=== PATIENT | female | born 1995 | race Hispanic/Latino ===

== ENCOUNTER 2021-11-16 22:53 | Emergency (ER) | payer BC ==
--- OUTSIDE RECORDS SUMMARY | 2021-11-16 22:57 | XMS REPORT | Continuity of Care Document ---
:1995 Author Organization [facility] t Address [address] [place] [address] Care Team Providers Name Role Phone Pcp, Does Not Have A Primary Care Physician Nj Barnes Attending Clinician Unavailable Michael Henson Attending Clinician Unavailable Ash ROOFER APPRENTICE Attending Clinician Nj Barnes Admitting Clinician Unavailable Payers Payer Name Policy Type Policy Number Effective Date Expiration Date S ource Problems Condition Condition Condition Status Onset Resolution Last Treating Co mments Source Name Details Category Date Date Treatment Clinician Date No known No known Disease Unive rs active active ity of problems problems [facility] Allergies, Adverse Reactions, Alerts Allergy Allergy Status Severity Reaction(s) Onset Inactive Treating Comm ents Source Name Type Date Date Clinician No Known DA Active U 2020-04 [facility] 16 [facility] [place] No Known DA Active U [facility] 11-27 [place] [facility] 00:[facility]: [facility] 00 [facility] [place] No Known DA Active U [facility]ie 11-27 [place] 00:[facility] 00 [facility] Social History Social Habit Start Date Stop Date Quantity Comments Source Exposure to 2021-11-06 2021-11-16 Not sure [facility]-CoV-2 00:00:00 16:40:00 [place] [facility]event[facility] Tobacco use and 2021-10-08 2021-10-08 Smokeless tobacco Un iversity of exposure 00:00:00 00:00:00 non-user [facility] Sex Assigned At [birth year] Univers[facility] 00:00:00 00:00:00 [facility] Smoking Status Start Date Stop Date Source Never smoked tobacco [facility] Medications Ordered Filled Start Stop Current Ordering Indication Dosage Frequency Signature Comments Components Source Medication Medication Date Date Medication? Clinician (SIG) Name Name triamcinolo 2021- No [id number] 40mg Univers ne 11-16 ity of acetonide 23:15: 22:15 [place] (KENALOG) 00 :00 Medical injection Branch 40 mg triamcinolo 2021- No [id number] 40mg 40 mg, Univers ne 11-16 Intramuscu ity of acetonide 23:15: 22:15 [place], ONCE, [place] (KE[place]LOG) 00 :00 1 dose, On Medi kai injection Sun Branch 40 mg 11/16/21 at 1815, Routine methylPREDN Yes [id number] Take by Univers ISolone -24 mouth ity of (MEDROL, 00:00: SEE-INSTRU Ashok as MARIO,) 4 mg 00 CTIONS. Medica l tablets follow Branch package directions hydrOXYzine Yes [id number] 25mg Take 1 Univers 25 mg 7-24 tablet by ity of tablet 00:00: mouth [place] 00 every 6 Medical (six) Branch hours as needed for Itching. guaiFENesin Yes [id number] 400mg Take 1 Univers 400 mg 6-15 tablet by ity of tablet 00:00: mouth [place] 00 every 4 Medical (four) Branch hours as needed for Cough. benzonatate Yes [id number] 200mg Take 2 Univers 100 mg 6-15 capsules ity of capsule 00:00: by mouth [place] 00 every 8 Medical (eight) Branch hours as needed for Cough. fluticasone Yes [id number] 1{spray Use 1 Univers propionate 6-15 } [place] in ity o f 50 00:00: each [place] mcg/actuati 00 nostril Medic al on nasal daily. Branch spray sulfamethox Yes 1{tbl} Take 1 Un karan azole-trime 6-09 tablet by ity of thoprim 00:00: mouth 2 [place] 800-160 mg 00 (two) Medical per tablet times Branch daily. metoprolol Yes 25mg Take 25 mg U nivers succinate 6-02 by mouth 2 ity of XL 25 mg 24 00:00: (two) [place] hr tablet 00 times Medical daily. Branch hydroCHLORO Yes 12.5mg Take 12.5 Univers thiazide 5-18 mg by ity of 12.5 mg 00:00: mouth [place] tablet 00 every Medical morning. Branch Vital Signs Vital Name Observation Time Observation Value Comments Source BMI 2021-11-16 21:41:00 45.98 kg/m2 [facility] Oxygen saturation in 2021-11-16 21:41:00 99 /min [facility] Arterial blood by [facility] Pulse oximetry Branch Systolic blood 2021-11-16 21:41:00 127 mm[Hg] Univer sity of pressure [facility] Diastolic blood 2021-11-16 21:41:00 79 mm[Hg] [facility] Heart rate 2021-11-16 21:41:00 79 /min [facility] Body temperature 2021-11-16 21:41:00 37.11 Chyna [facility] Respiratory rate 2021-11-16 21:41:00 18 /min [facility] Body height 2021-11-16 21:41:00 147.3 cm [facility] Body weight 2021-11-16 21:41:00 99.791 kg [facility] Procedures Procedure Date / Time Performed Performing Clinician Carlos Eduardo doe [id number] 2021-03-19 00:00:00 DRYDA [facility] Plan of Care Planned Activity Planned Date Details Comments Source Encounters Start End Encounter Admission Attending Care Care Encounter Source Date/Time Date/Time Type Type Clinicians Facility Department ID 2021-07-08 Outpatient STLMLC STLMLC [id number] [facility] 15:32:03 [id number] [facility] 2021-04-04 Inpatient BRITNEY Amato [id number] [facility] 16:23:00 [facility] [id number] [facility] [place] 2021-03-14 [id number] 18:00:00 [facility] 37 [facility] [place] 2019-12-01 Inpatient DONALD Mauro DAYS [id number] [facility] 07:30:00 [facility] 2021-11-16 2021-11-16 [place], [facility] [id number] Univers 16:40:00 17:00:00 [facility] [id number] it y of [place] [id number] Ashok as SOHAIL?BLEA [id number] Wa supriya [address] MEDICAL OFFICE BUILDING 2021-03-26 2021-03-28 [facility] [id number] [facility] 20:03:00 18:35:00 [facility] [id number] [facility] [place] 2021-03-26 2021-03-28 [facility] [id number] [facility] 20:03:00 18:35:00 [facility] 15 [facility] [place] 2021-03-18 2021-03-22 Inpatient EM BRITNEY Barnes OB [id number] [facility] 06:52:00 14:43:00 [facility] [id number] [facility] [place] 2021-03-18 2021-03-22 Inpatient EM BRITNEY Barnes OBPP [id number] [facility] 06:52:00 14:43:00 [facility] 15 [facility] [place] 2021-03-11 2021-03-11 Emergency EM DONALD Barnes JESUS [id number] [facility] 09:37:00 11:37:00 [facility] [id number] [facility] [place] Results Test Description Test Time Test Comments Results Result Comments Source CYTOLOGY NON PRIVATE SECRETARY 2021-03-28 14:55:00 Test Item Value Reference Range Interpretation Comme nts CYTOLOGY RUN DATE: NON PRIVATE SECRETARY 03/28/21 [facility] PAGE 1 RUN TIME: 1455 (test Specimen Inquiry RUN USER: INTERFACE code = CR) PATIENT: SANDRA SILVER [facility] [place] #[place] [id number] AGE/SX: 25/ F ROOM[facility] RE03/26/21REG DR: Laura Barnes MD : [birth year] BED: A DIS: STATUS: ADM Tasha TLOC: SPEC #: [id number] RECD: STATUS: JENNIFER REStef #: [id number] CLAUDIA: 03/27/21- SUBM DR: Laura Barnes MD ENTERED: 03/27/21 SP TYPE: CYTO PEDRO PABLO RAMIREZ DR: DOES _NOT KNOW ORDERED: ANATOMIC SPEC, SPEC TRACK, [id number], 46364 COPIES TO: DOES_NOT KNOW Laura Barnes MD [address] [address] PROCEDURES: 00337 (03/27/21) 89815 (03/28/21-7955) TISSUES: A. PELVIC FLUID WASHING (CYTOSPIN,CELL BLOCK) - PELVIC ABSCESS FLUID FINAL DIAGNOSIS PELVI C ABSCESS:-Marked acute inflammation, consistent with the provided history of an abscess. -No malignant epithelial cells identified. GROSS DESCRIPTION Site A received in a tubular container labeled wi th the patient's name and date of birthdesignated "pelvic abscess fluid" is 5 mL of red-vela viscous flui d. The specimen will besent to [employer] for cytospin and cell block. LC Technical component performe d at [email or web address],[place] [address] , [place] [address] Unless gross only, the diagnosis is based upon micr oscopic examination.Immunohistochemistry: This test was developed and its performance characteristicsd etermined by this laboratory. It has not been approved nor does it need approval by [place] FDA. Appro priate positive and negative controls are reviewed and judged to beacceptable. This laborator y is certified under the Clinical Laboratory ImprovementAmendments (CLIA-88) as qualified to perform high complexity clinical labor atory testing. CONTINUED ON NEXT PAGE RUN DATE: 03/28/21 [facility] PAGE 2 RUN TIME: 1455 Specimen Inquiry RUN USER: INTERFACE SPEC #: [id number] PATIENT: SANDRA SILVER #[id number] (Continued) CLINICAL INFORMATION PELVIC ABSCESS C SECTION Signed Monisha Frias 03/28/21 1455 END OF REPORT CBC W/MANUAL [id number] 10:44:00 Test Item Value Reference Range Interpretation Comments WHITE BLOOD CELL (test code = WBC) 8.8 K/mm3 6.5-12.3 N RED BLOOD CELL (test code = RBC) 4.24 M/mm3 3.51-4.69 N HEMOGLOBIN (test code = HGB) 11.0 g/dL 10.1-13.8 N HEMATOCRIT (test code = HCT) 33.7 % 32.5-41.8 N MEAN CELL VOLUME (test code = MCV) 79.5 fL 84.6-96.6 L MEAN CELL HGB (test code = MCH) 25.9 pg 27.3-33.9 L MEAN CELL HGB CONCETRATION (test 32.6 gm/dL 32.0-34.2 N code = MCHC) RED CELL DISTRIBUTION WIDTH (test 14.3 % 12.2-16.3 N code = RDW) PLATELET COUNT (test code = PLT) 326 K/mm3 134-363 N MEAN PLATELET VOLUME (test code = 10.0 fL 9.2-12.7 N MPV) SEGMENTED NEUTROPHILS (test code = 73 % 56.5-79.4 N SEG) LYMPHOCYTE (test code = LYMPH) 20 % 20-40 N TOTAL CELLS COUNTED (test code = 100 #CELLS TCC) MONOCYTE (test code = MON) 4 % 0-8 N EOSINOPHIL (test code = EOS) 3 % 0-4 N MICROCYTOSIS (test code = MICR) 1+ PLATELET ESTIMATE (test code = ADEQUATE ADEQ PLTEST) PLATELET MORPHOLOGY (test code = NORMAL NORMAL PLTMORPH) - CT PERC [id number] 00:00:00 [facility]OS : 1995 Sex: F Patient Name: SANDRA SILVER Unit No: [id number] EXAMS: CPT CODE: [id number] CT PERC DRAIN 77721 Radiation Dose CTDIVOL = 43.3 (mGy): DLP = 2485.87 (mGy-cm) PROCEDURE INFORMATION: Exam: IR DRAIN PERITONEAL ABCESS OPEN CT-GUIDED PERCUTANEOUS ABSCESS DRAINAGE CATHETER PLACEMENT X2 Exam date and time: 03/27/2021 10:40 AM Age: 25 years old Clinical indication: Symptoms: Rectus sheath abscess; Prior surgery TECHNIQUE: Imaging protocol: IR DRAIN PERITONEAL ABCESS OPEN Radiation optimization: All CT scans at this facility use at least one of these dose optimization techniques: automated exposure control; mA and/or kV adjustment per patient size (includes targeted exams where dose is matched to clinical indication); or iterative reconstruction. COMPARISON: CT abdomen pelvis 03/26/2021 RADIATION DOSE METRICS: CTDI volume (mGy): 43.3 Total DLP (mGy-cm): 2485.87 FINDINGS: Advanced practice providers: Dr. Marley CONSENT AND SEDATION INFO: Consent: The procedure, risks, benefits and alternatives of the procedure were discussed. Informed consent was obtained. Time out: Timeout was performed prior to the procedure. Procedure summary: Preliminary axial noncontrast CT images again demonstratethe large complex fluid collection containing multiple air bubbles within the lower rectus sheath and the 3 x 4.5 cm midline subcutaneous fluid collection in the lower abdominal wall deep to the transverse incision. Under sterile conditions, utilizing CT guidance and 1% lidocaine local anesthesia, an 18 gauge Chiba needle was introduced into the rectus sheath collection. Grossly infected foul-smelling [facility] NAME: SANDRA SILVER Radiology Department PHYS: Mireya Monk [address] : 1995 AGE: 25 SEX: F [place], [place] [address] LOC: F.2600 A PHONE #: [phone] EXAM DATE: 03/27/2021 STATUS: ADM INFAX #: [phone] RAD NO: Page 1 Signed Report 1 Patient Name: SANDRA SILVER Unit No: [id number] EXAMS: CPT CODE: [id number] CT PERC DRAIN 11367 <Continued> hemorrhagic material was aspirated.A superstiff guidewire was introduced. The tract was dilated to 12 Paraguayan. A 12 [place]aguayan self-retaining pigtail drainage catheter was introduced. The pigtail loop was reformed within the collection. 40 cc of infected material was aspirated. The catheter was attached to a Elmo- Royal drain. Next, under sterile conditions, utilizing CT guidance and 1% lidocaine local anesthesia, an18 gauge Chiba needle was introduced into the lower subcutaneous fluid collection. Similar infected material was aspirated. A superstiff guidewire was introduced. The tract was dilated to 8 [place]aguayan. A self-retaining 8 [place]aguayan pigtail drainage catheter was introduced and the pigtail loop was reformed within the collection. The catheter was attached to a Elmo-Royal drain. Sterile dressings were applied. Procedural imaging: See above Complications: No immediate complications. IMPRESSION: Placement of 2 abdominal wall drainage catheters without complication. at 1300 Reported and signed by: Dell Marley MD CC: Laura Arias; Mireya Magana MD Technologist: Loren Alcantar, RT, CT CTDI: 43.30 DLP: 2485.87 Trnscrbd D/ (1300) GCD.[facility] NAME: SANDRA SILVER Radiology Department PHYS: Omar Monkine Veronica [address] : 1995 AGE: 25 SEX: F [place] [address] LOC: F.2600 A PHONE #: [phone] EXAM DATE: 03/27/2021 STATUS: ADM IN FAX #: [phone] RAD NO: Page 2 Signed Report 1 Patient Name: SANDRA SILVER Unit No: [id number] EXAMS: CPT CODE: [id number] CT PERC DRAIN 33101 <Continued> Orig Print D/T: S: 03/27/2021 (1301) [facility] NAME: SANDRA SILVER Radiology Department PHYS: Mireya Monk [address] : 1995 AGE: 25 SEX: F [place] [address] LOC: F.2600 A PHONE #: [phone] EXAM DATE: 03/27/2021 STATUS: ADM IN FAX #: [phone] RAD NO: Page 3 Signed Report 1THROMBOPLASTIN TIME PARTIAL 2021-03-26 21:02:00 Test Item Value Reference Range Interpretation Comments THROMBOPLASTIN TIME PARTIAL (test 32.5 secs 22-38 N code = PTT) PROTHROMBIN [id number] 21:02:00 Test Item Value Reference Range Interpretation Comments PROTHROMBIN TIME PATIENT (test code 11.8 secs 10.1-12.3 N = PTP) UA RFLX MICR CULT IF [id number] 19:00:00 Test Item Value Reference Range Interpretation Comments UA COLOR (test code = COLU) YELLOW YELLOW UA APPEARANCE (test code = CLEAR CLEAR APPU) UA GLUCOSE DIPSTICK (test code NEGATIVE NEG = DGLUU) UA BILIRUBIN DIPSTICK (test NEGATIVE NEG code = BILU) UA KETONE DIPSTICK (test code NEGATIVE NEG = KETU) UA SPECIFIC GRAVITY (test code 1.032 1.001-1.035 N = SGU) UA BLOOD DIPSTICK (test code = 2+ NEG A KEARA) UA PH DIPSTICK (test code = 6.0 5-9 CHARLES) UA PROTEIN DIPSTICK (test code NEGATIVE NEG = PROU) UA UROBILINIOGEN DIPSTICK NEGATIVE mg/dL NEG (test code = URO) UA NITRITE DIPSTICK (test code NEG NEG = RICH) UA LEUKOCYTE ESTERASE DIPSTICK NEG NEG (test code = LEUU) UA WBC (test code = WBCU) 3-5 #/hpf NONE SEEN A UA RBC (test code = RBCU) 11-15 #/hpf NONE SEEN A UA EPITHELIAL CELLS (test code RARE #/HPF RARE-FEW = EPIU) UA MUCUS (test code = MUCU) RARE NONE SEEN Indication for culture: Temperature > 100.4 FSpecimen Description: CLEAN CATCHSpecimen Comment: CLEAN CATCHCOVID 19 Asymptomatic IH [id number] 16:50:00 Test Item Value Reference Range Interpretation Comments COVID 19 NEGATIVE NEGATIVE This test has b een Asymptomatic IH AG authorize d only for the (test code = detection ofpro teins from COVNONPUIAG) SARS-CoV-2, not for any other viruses orpathogens. N egative results should be treated as presumptive andconfirmed wi th a molecular assay , if necessary for patientmanageme nt. Negative result s do not rule out COVID- 19 andshould not b e used as the sole basis for treatment orpat ient management deci sions, including infec tion controldecision s. Negative result s should be considered i n thecontext of a patient's recent exposure s, history and thepresence of clinical signs and symptoms consis tent withCOVID-19. T his test has not been FD A cleared or approved; th e test hasbeen authori zed by FDA under an Emerge ncy Use Authorization(E UA) for use by jeffrey philippe certified under the CLIA thatmeet the re quirements to perform mode rate, high or waivedcomple xity tests. This robbie t is authorized for use at thePoint of Car e (POC), i.e., in patien t care settingsoperati ng under a CLIA Certificat e of Waiver, Certifi mandy ofCompliance, o r Certificate of Accreditation. This test is only authori zed for the duration of thedeclaration that circumstances e xist justifying theauthorizatio n of emergency use o f in vitro diagnostic test sfor detection and/o r diagnosis of CO VID-19 under Eezlzst49 4(b)(1) of the Act, 21 U.S .C. 360bbb-3(b)(1), unless theauthorizatio n is terminated or r evoked sooner. CBC W/AUTO [id number] 16:13:00 Test Item Value Reference Range Interpretation Comments WHITE BLOOD CELL (test code = WBC) 11.8 K/mm3 6.5-12.3 N RED BLOOD CELL (test code = RBC) 4.79 M/mm3 3.51-4.69 H HEMOGLOBIN (test code = HGB) 12.4 g/dL 10.1-13.8 N HEMATOCRIT (test code = HCT) 38.2 % 32.5-41.8 N MEAN CELL VOLUME (test code = MCV) 79.7 fL 84.6-96.6 L MEAN CELL HGB (test code = MCH) 25.9 pg 27.3-33.9 L MEAN CELL HGB CONCETRATION (test 32.5 gm/dL 32.0-34.2 N code = MCHC) RED CELL DISTRIBUTION WIDTH (test 14.1 % 12.2-16.3 N code = RDW) PLATELET COUNT (test code = PLT) 383 K/mm3 134-363 H MEAN PLATELET VOLUME (test code = 10.0 fL 9.2-12.7 N MPV) NEUTROPHIL % (test code = NT%) 79.9 % 57.9-77.3 H LYMPHOCYTE % (test code = LY%) 12.4 % 14.5-29.7 L MONOCYTE % (test code = MO%) 5.3 % 3.6-10.2 N EOSINOPHIL % (test code = EO%) 1.4 % 0.0-3.0 N BASOPHIL % (test code = BA%) 0.3 % 0.1-0.9 N NEUTROPHIL # (test code = NT#) 9.4 K/mm3 LYMPHOCYTE # (test code = LY#) 1.5 K/mm3 MONOCYTE # (test code = MO#) 0.6 K/mm3 EOSINOPHIL # (test code = EO#) 0.16 K/mm3 BASOPHIL # (test code = BA#) 0.0 K/mm3 RBC MORPHOLOGY REQUIRED (test code NORMAL NORMAL = RBCM) PLATELET MORPHOLOGY REQUIRED (test NORMAL NORMAL code = PLTMR) COMPREHENSIVE METABOLIC [id number] 16:09:00 Test Item Value Reference Range Interpretation Comments SODIUM (test code = NA) 138 mEq/L 135-145 N POTASSIUM (test code = K) 3.7 mEq/L 3.5-5.0 N CHLORIDE (test code = CL) 101 mEq/L 100-115 N CARBON DIOXIDE (test code = CO2) 26 mEq/L 22-31 N ANION GAP (test code = GAP) 15.20 10-20 N GLUCOSE (test code = GLU) 128 mg/dL 65-110 H BLOOD UREA NITROGEN (test code = 13 mg/dL 7-18 N BUN) GLOMERULAR FILTRATION RATE (test 86 ml/min >60 N code = GFR) CREATININE (test code = CREAT) 0.8 mg/dL 0.5-1.0 N TOTAL PROTEIN (test code = PROT) 7.5 gm/dL 6.3-8.2 N ALBUMIN (test code = ALB) 2.7 gm/dL 3.4-4.8 L CALCIUM (test code = CA) 9.2 mg/dL 8.4-10.2 N BILIRUBIN TOTAL (test code = 0.3 mg/dL 0.2-1.0 N BILT) SGOT/AST (test code = AST) 30 units/L 15-37 N SGPT/ALT (test code = ALT) 38 units/L 12-78 N ALKALINE PHOSPHATASE TOTAL (test 118 units/L 46-116 H code = ALKP) LIVER [id number] 16:09:00 Test Item Value Reference Range Interpretation Comments BILIRUBIN DIRECT (test code = BILD) 0.1 mg/dL <0.2 N [id number] 16:09:00 Test Item Value Reference Range Interpretation Comments LIPASE (test code = LIP) 125 units/L 73-393 N LACTIC [id number] 16:09:00 Test Item Value Reference Range Interpretation Comments LACTIC ACID (test code = LACT) 1.2 MMOL/L 0.5-2.2 N - CT ABD PELVIS [id number] 00:00:00 [facility] 1995 Sex: F Patient Name: SANDRA SILVER Unit No: [id number] EXAMS: CPT CODE: [id number] CT ABD PELVIS W/CONT 48217 Radiation Dose CTDIVOL = 20.68 (mGy): DLP = 1151.99 (mGy-cm) PROCEDURE INFORMATION: Exam: CT Abdomen And Pelvis With Contrast Exam date and time: :06 PM Age: 25 years old Clinical indication: Abdominal pain; Tenderness; Lower; Prior surgery; Surgery date: 3-7 days post-operative; Surgery type: C section 03/19/2021; Additional info: Post , fever of unkown origin TECHNIQUE: Imaging protocol: Computed tomography of the abdomen and pelvis with contrast. Radiation optimization: All CT scans at this facility use at least one of these dose optimization techniques: automated exposure control; mA and/orkV adjustment per patient size (includes targeted exams where dose is matched to clinical indication); or iterative reconstruction. Contrast material: ISOVUE 300; Contrast volume: 100 ml; Contrast route: INTRAVENOUS (IV) ADDITIONAL STUDY INFORMATION: CTDI volume (mGy): 20.68 Total DLP (mGy-cm): 1151.99 COMPARISON: CR XR CHEST 1V 03/26/2021 3:42 PM FINDINGS: ABDOMINAL ORGANS: No acute CT abnormalities of the liver, spleen, pancreas, adrenal glands or kidneys are detected. There is no CT evidence of acute renal collecting system obstruction or calcified renal collecting system stone. BILIARY: The gallbladder is normally distended. No significant biliary ductal dilatation is detected. GASTROINTESTINAL: Bowel assessment is limited by the absenceof bowel contrast. No gross abnormalities of the stomach or duodenum are identified. No small bowel dilatation is present to suggest [facility] NAME: SANDRA SILVER Radiology Department PHYS: Indira Foster MD [address] : 1995 AGE: 25 SEX: F [place], [place] [address] LOC: [place] PHONE #: [phone] EXAM DATE: 03/26/2021 STATUS: REG ER FAX #: [phone] RAD NO: Page 1 Signed Report 1 Patient Name: SANDRA SILVER Unit No:[id number] EXAMS: CPT CODE: [id number] CTABD PELVIS W/CONT 12475 <Continued> acute obstruction.The appendix is identified and is not acutely inflammed. The colon demonstrates no evidence of diverticular disease or acute inflammatory wall thickening. PERITONEUM: No evidence of free intraperitoneal air. No significant free intraperitoneal fluid. RETROPERITONEUM: The abdominal aortademonstrates no evidence of aneurysm or dissection. There is no evidence of retroperitoneal mass or adenopathy. PELVIS: The uterus is enlarged, compatible with the patient's recently status. No there is no evidence of postoperative pelvic hematoma or abscess. No abnormalities of the ovaries/adnexa are noted. The bladder has an unremarkable appearance. LOWER CHEST: The lung bases appear clear of acute disease. ADDITIONAL FINDINGS: A 9 x 7 x 3 cm gas containing fluid collection is identified within the rectus sheath beginning at the level of the incision and extending cranially. A 2.6 x 2.0 x 4.5 cm fluid collection is identified in the midline subcutaneous fat at the level of the incision. IMPRESSION: 1. Status post with 2 postoperative fluid collections in the anterior abdominal wall. A 9 x 7 x 3 cm gascontaining fluid collection is identified within the rectus sheath and a 2.6 x 2.0 x 4.5 cm fluid collection is identified in the subcutaneous fat. 2. No additional acute CT abnormalities of the abdomen or pelvis are detected. SL:131 at 1804 Reported and signed by: Miguel Desai MD [facility] NAME: SILVER,SANDRA THAOadiology Department PHYS: Indira Foster MD [address] : 1995 AGE: 25 SEX: F [place] [address] LOC: .ERS PHONE #: [phone] EXAM DATE: 03/26/2021 STATUS: REG ER FAX #: [phone] RAD NO: Page 2 Signed Report 1 Patient Name: SANDRA SILVER Unit No: [id number]: CPT CODE: [id number] CT ABD PELVIS W/CONT 08315 <Continued> CC: Laura Arias; Indira Doty MD Technologist: Mireya Sol, RT CTDI: DLP: Trnscrbd D/ (180) GCD.[facility] NAME: SILVERSANDRA Radiology Department PHYS: Indira Foster MD [address] : 1995 AGE: 25 SEX: F [place] [address] LOC: .ERS PHONE #: [phone] EXAM DATE: 03/26/2021 STATUS: REG ER FAX #: [phone] RAD NO: Page 3 Signed Report 1 Patient Name: SANDRA SILVER Unit No: [id number] EXAMS: CPT CODE: [id number] CT ABD PELVIS W/CONT 09238 <Continued> Orig Print D/T: S: 03/26/2021 (1805) [facility] NAME: [facility] Radiology Department PHYS: Indira Foster MD [address] : 1995 AGE: 25 SEX: F [place], [place] [address] LOC: [facility] PHONE #: [phone] EXAM DATE: 03/26/2021 STATUS:REG ER FAX #: [phone] RAD NO: Page 4 Signed Report 1- XR CHEST 1 [id number] 00:00:00 [facility] 1995 Sex: F Patient Name: SANDRA SILVER Unit No: [id number] EXAMS: CPT CODE: [id number] XR CHEST 1 V 33682 PROCEDURE INFORMATION: Exam: XR Chest Exam date and time: 03/26/2021 3:42 PM Age: 25 years old Clinical indication: Patient HX: fever; Additional info: Code sepsis TECHNIQUE: Imaging protocol: XR of the chest. Views: 1 view. COMPARISON: No relevant prior studies available. FINDINGS: Lungs: No focal consolidation. Pleural spaces: No pleural effusion or pneumothorax. Heart/Mediastinum: No cardiomegaly. Midline trachea. Bones/joints: No acute abnormalities. IMPRESSION: Clear lungs. at 1600 Reported and signed by: Samuel Dejesus MD CC: Laura Arias; Indira Doty MD Technologist: Belinda Horn, RT; Lynette Garvin RT Trnscrbd D/ (1600) GCD.CPS Orig Print D/T: S: 03/26/2021 (1601) [facility] NAME: SANDRA SILVER Radiology Department PHYS: Indira Foster MD [address] : 1995 AGE: 25 SEX: F [place], [place] [address] LOC: [place] PHONE #: [phone] EXAM DATE: 03/26/2021 STATUS: REG ER FAX #: [phone] RAD NO: Page 1 Signed ReportSURGICAL 2021-03-25 12:37:00 Test Item Value Reference Range Interpretation Comments SURGICAL (test code = SR) R UN DATE: 03/25/21 [facility] PAGE 1 RUN TIME: 1237 Specimen Inquiry RUN USER: INTERFACE Carolina ATIENT: SANDRA SILVER LOC: [facility]vinUW U #: [id number] AGE/SX: 25/F ROOM: 2200 RE03/18/21REG DR: Laura Barnes MD : [birth year] BED: A DIS: 03/22/21 STATUS: DIS IN TLOC: SPEC #: [id number] RECD: 03/21/21 STATUS: JENNIFER WILLIAMSON #: [id number] CLAUDIA: 03/18/21- SUBM DR: Laura Barnes MD ENTERED: 03/21/21 SP TYPE: SURGICAL OTHR DR: ORDERED: ANATOMIC SPEC, SPEC TRACK, [id number] PROCEDURES: [id number] (03/21/21) TISSUES: A. PLACENTA, THIRD TRIMESTER (28 + WEEKS) - 37.5 WEEKS, CHTN E PRE.E FEATURES FINAL DIAGNOSIS A. PLACENTA, DELIVERY: - placenta, 474 grams, appropriate for gestational age at 37 5/7 weeks. - Accelerated villous maturation with increased syncytial knots. - Meconium staining, microscopic. - Umbilical cord with three vessels. GROSS DESCRIPTION Received in formalin is a lua placenta with the placental disc measuring 16 x 14.5 x3 cm and weighing 474 gm with a 1.3 cm in diameter by 25 cm in length eccentric at edge, 3vessel cord with appropriate spiraling. The membranes are vela and translucent withmarginal insertion with the site of rupture 2 cm from the placental disc. The placentaldisc has a beefy red cut surface with no gross lesion. Manager Document Control sections aresubmitted as follows: A1: Membrane roll and cordA2: Full thickness placental discA3: Full thickness placental disc at edge LC Technical component performed at [email or web address],[id number], [place] [address] MICROSCOPIC DESCRIPTION Technical component performed at [email or web address],[id number], [place] [address] Unless gross only, the diagnosis is based upon microscopic examination.Immunohistochemistr y: This test was developed and its performance characteristicsdetermined by this laboratory. It has not been approved nor does it need approval by [place] FDA. Appropriate positive and negative controls are reviewed and judged to beacceptable. This laboratory is certified under the Clinical Laboratory ImprovementAmendments (CLIA-88) as qualified to perform high complexity clinical laboratory testing. CONTINUED ON NEXT PAGE R UN DATE: 03/25/21 [facility] PAGE 2 RUN TIME: 1237 Specimen Inquiry RUN USER: INTERFACE S PEC #: [id number] PATIENT: SANDRA SILVER #[id number] (Continued) CLINICAL INFORMATION ON MAG -- Signed SIGNATURE ON TYLER FariasAmado 03/25/21 1237 END OF REPORT COMPREHENSIVE METABOLIC [id number] 08:14:00 Test Item Value Reference Range Interpretation Comments SODIUM (test code = NA) 141 mEq/L 135-145 N POTASSIUM (test code = K) 4.3 mEq/L 3.5-5.0 N CHLORIDE (test code = CL) 106 mEq/L 100-115 N CARBON DIOXIDE (test code = CO2) 24 mEq/L 22-31 N ANION GAP (test code = GAP) 14.90 10-20 N GLUCOSE (test code = GLU) 74 mg/dL 65-110 N BLOOD UREA NITROGEN (test code = 7 mg/dL 7-18 N BUN) GLOMERULAR FILTRATION RATE (test 120 ml/min >60 N code = GFR) CREATININE (test code = CREAT) 0.6 mg/dL 0.5-1.0 N TOTAL PROTEIN (test code = PROT) 5.3 gm/dL 6.3-8.2 L ALBUMIN (test code = ALB) 2.2 gm/dL 3.4-4.8 L CALCIUM (test code = CA) 6.7 mg/dL 8.4-10.2 L BILIRUBIN TOTAL (test code = 0.2 mg/dL 0.2-1.0 N BILT) SGOT/AST (test code = AST) 25 units/L 15-37 SGPT/ALT (test code = ALT) 18 units/L 12-78 N ALKALINE PHOSPHATASE TOTAL (test 113 units/L 46-116 N code = ALKP) CBC W/AUTO [id number] 07:41:00 Test Item Value Reference Range Interpretation Comments WHITE BLOOD CELL (test code = WBC) 12.9 K/mm3 6.5-12.3 H RED BLOOD CELL (test code = RBC) 4.37 M/mm3 3.51-4.69 N HEMOGLOBIN (test code = HGB) 11.3 g/dL 10.1-13.8 N HEMATOCRIT (test code = HCT) 34.6 % 32.5-41.8 N MEAN CELL VOLUME (test code = MCV) 79.2 fL 84.6-96.6 L MEAN CELL HGB (test code = MCH) 25.9 pg 27.3-33.9 L MEAN CELL HGB CONCETRATION (test 32.7 gm/dL 32.0-34.2 N code = MCHC) RED CELL DISTRIBUTION WIDTH (test 15.0 % 12.2-16.3 N code = RDW) PLATELET COUNT (test code = PLT) 201 K/mm3 134-363 N MEAN PLATELET VOLUME (test code = 11.7 fL 9.2-12.7 N MPV) NEUTROPHIL % (test code = NT%) 73.5 % 57.9-77.3 N LYMPHOCYTE % (test code = LY%) 15.9 % 14.5-29.7 N MONOCYTE % (test code = MO%) 9.7 % 3.6-10.2 N EOSINOPHIL % (test code = EO%) 0.2 % 0.0-3.0 N BASOPHIL % (test code = BA%) 0.2 % 0.1-0.9 N NEUTROPHIL # (test code = NT#) 9.5 K/mm3 LYMPHOCYTE # (test code = LY#) 2.1 K/mm3 MONOCYTE # (test code = MO#) 1.3 K/mm3 EOSINOPHIL # (test code = EO#) 0.02 K/mm3 BASOPHIL # (test code = BA#) 0.0 K/mm3 RBC MORPHOLOGY REQUIRED (test code NORMAL NORMAL = RBCM) PLATELET MORPHOLOGY REQUIRED (test NORMAL NORMAL code = PLTMR) CAPILLARY BLOOD [id number] 12:19:00 Test Item Value Reference Range Interpretation Comments CAPILLARY BLOOD GAS PH (test code 7.172 7.35-7.45 LL = PHC) CAPILLARY BLOOD GAS PCO2 (test 60.2 mmHg code = PCO2C) CAPILLARY BLOOD GAS PO2 (test code 12.3 mmHg = PO2C) CBG HCO3 (test code = HCO3C) 21.6 meq/L CBG BASE EXCESS (test code = BEC) -7.8 CAPILLARY BLOOD GAS TYPE (test CBLV code = TYPEC) CAPILLARY BLOOD GAS FIO2 (test 21.0 % code = FIO2C) CAPILLARY BLOOD [id number] 12:18:00 Test Item Value Reference Range Interpretation Comments CAPILLARY BLOOD GAS PH (test code 7.078 7.35-7.45 LL = PHC) CAPILLARY BLOOD GAS PCO2 (test 79.2 mmHg code = PCO2C) CAPILLARY BLOOD GAS PO2 (test code 14.5 mmHg = PO2C) CBG HCO3 (test code = HCO3C) 22.8 meq/L CBG BASE EXCESS (test code = BEC) -9.0 CAPILLARY BLOOD GAS TYPE (test CBLA code = TYPEC) CAPILLARY BLOOD GAS FIO2 (test 21.0 % code = FIO2C) [id number] 02:35:00 Test Item Value Reference Range Interpretation Comments MAGNESIUM (test code = 5.4 mg/dL 1.8-2.4 HH RESUL TS CALLED TO [facility]) DELIA ArroyoREAD BACK & CONFIRME D? YES.BY [id number] 03/19/21 0234.R esults verified by rep eat analysis AG HEPATITIS B [id number] 02:42:00 Test Item Value Reference Range Interpretation Comments AG HEPATITIS B SURFACE (test code NONREACTIVE NONREACTIVE = HBSAG) AB HEPATITIS C [id number] 02:42:00 Test Item Value Reference Range Interpretation Comments AB HEPATITIS C (test code = NONREACTIVE NONREACTIVE HCVAB) SIGNAL TO CUTOFF (test code = <0.02 <0.80 N CUTOFF) AB [id number] 02:42:00 Test Item Value Reference Range Interpretation Comments AB TREPONEMA (test code = TREPAB) NONREACTIVE NONREACTIVE AB HIV 1 02:42:00 Test Item Value Reference Range Interpretation Comments AB HIV 1 2 (test NONREACTIVE NONREACTIVE Done by Veronica Jorgensen code = [id number]) 4th Gen HIV Ag/Ab Combo Screen CBC W/AUTO [id number] 01:33:00 Test Item Value Reference Range Interpretation Comments WHITE BLOOD CELL (test code = WBC) 10.5 K/mm3 6.5-12.3 N RED BLOOD CELL (test code = RBC) 4.99 M/mm3 3.51-4.69 H HEMOGLOBIN (test code = HGB) 13.1 g/dL 10.1-13.8 N HEMATOCRIT (test code = HCT) 39.2 % 32.5-41.8 N MEAN CELL VOLUME (test code = MCV) 78.6 fL 84.6-96.6 L MEAN CELL HGB (test code = MCH) 26.3 pg 27.3-33.9 L MEAN CELL HGB CONCETRATION (test 33.4 gm/dL 32.0-34.2 N code = MCHC) RED CELL DISTRIBUTION WIDTH (test 15.6 % 12.2-16.3 N code = RDW) PLATELET COUNT (test code = PLT) 244 K/mm3 134-363 N MEAN PLATELET VOLUME (test code = 12.1 fL 9.2-12.7 N MPV) NEUTROPHIL % (test code = NT%) 61.3 % 57.9-77.3 N LYMPHOCYTE % (test code = LY%) 28.9 % 14.5-29.7 N MONOCYTE % (test code = MO%) 8.0 % 3.6-10.2 N EOSINOPHIL % (test code = EO%) 1.0 % 0.0-3.0 N BASOPHIL % (test code = BA%) 0.3 % 0.1-0.9 N NEUTROPHIL # (test code = NT#) 6.4 K/mm3 LYMPHOCYTE # (test code = LY#) 3.0 K/mm3 MONOCYTE # (test code = MO#) 0.8 K/mm3 EOSINOPHIL # (test code = EO#) 0.11 K/mm3 BASOPHIL # (test code = BA#) 0.0 K/mm3 RBC MORPHOLOGY REQUIRED (test code NORMAL NORMAL = RBCM) PLATELET MORPHOLOGY REQUIRED (test NORMAL NORMAL code = PLTMR) COVID 19 Asymptomatic IH [id number] 01:16:00 Test Item Value Reference Range Interpretation Comments COVID 19 NEGATIVE NEGATIVE This test has b een Asymptomatic IH AG authorize d only for the (test code = detection ofpro teins from COVNONPUIAG) SARS-CoV-2, not for any other viruses orpathogens. N egative results should be treated as presumptive andconfirmed wi th a molecular assay , if necessary for patientmanageme nt. Negative result s do not rule out COVID- 19 andshould not b e used as the sole basis for treatment orpat ient management deci sions, including infec tion controldecision s. Negative result s should be considered i n thecontext of a patient's recent exposure s, history and thepresence of clinical signs and symptoms consis tent withCOVID-19. T his test has not been FD A cleared or approved; th e test hasbeen authori zed by FDA under an Emerge ncy Use Authorization(E UA) for use by jeffrey denae certified under the CLIA thatmeet the re quirements to perform mode rate, high or waivedcomple xity tests. This robbie t is authorized for use at thePoint of Car e (POC), i.e., in patien t care settingsoperati ng under a CLIA Certificat e of Waiver, Certifi mandy ofCompliance, o r Certificate of Accreditation. This test is only authori zed for the duration of thedeclaration that circumstances e xist justifying theauthorizatio n of emergency use o f in vitro diagnostic test sfor detection and/o r diagnosis of CO VID-19 under Uqpokmi63 4(b)(1) of the Act, 21 U.S .C. 360bbb-3(b)(1), unless theauthorizatio n is terminated or r evoked sooner. [facility] [id number] 00:58:00 Test Item Value Reference Range Interpretation Comments CREATININE (test code = 0.5 mg/dL 0.5-1.0 N CREAT) SGOT/AST (test code = 64 units/L 15-37 H SPECIM EN HEMOLYZED AST) SGPT/ALT (test code = 21 units/L 12-78 N SPECIM EN HEMOLYZED ALT) LACTIC 554 units/L 81-234 H SPECIMEN HEMOLY ZED DEHYDROGENASE(LDH) (test code = LDH) : *UR PROTEIN/CREATININE [id number] 00:39:00 Test Item Value Reference Range Interpretation Comments UR PROTEIN RANDOM (test code = 8.9 mg/dL PROTU) UR CREATININE RANDOM (test 12.1 mg/dL code = CREATU) PROTEIN/CREATININE RATIO (test 735.5 mg/gcrea <200 H code = P/CRATIO) COMPREHENSIVE METABOLIC [id number] 10:27:00 Test Item Value Reference Range Interpretation Comments SODIUM (test code = NA) 138 mEq/L 135-145 N POTASSIUM (test code = K) 4.1 mEq/L 3.5-5.0 N CHLORIDE (test code = CL) 105 mEq/L 100-115 N CARBON DIOXIDE (test code = CO2) 23 mEq/L 22-31 N ANION GAP (test code = GAP) 13.90 10-20 N GLUCOSE (test code = GLU) 75 mg/dL 65-110 N BLOOD UREA NITROGEN (test code = 8 mg/dL 7-18 N BUN) GLOMERULAR FILTRATION RATE (test 120 ml/min >60 N code = GFR) CREATININE (test code = CREAT) 0.6 mg/dL 0.5-1.0 N TOTAL PROTEIN (test code = PROT) 6.4 gm/dL 6.3-8.2 N ALBUMIN (test code = ALB) 2.8 gm/dL 3.4-4.8 L CALCIUM (test code = CA) 8.5 mg/dL 8.4-10.2 N BILIRUBIN TOTAL (test code = 0.3 mg/dL 0.2-1.0 N BILT) SGOT/AST (test code = AST) 16 units/L 15-37 N SGPT/ALT (test code = ALT) 19 units/L 12-78 N ALKALINE PHOSPHATASE TOTAL (test 141 units/L 46-116 H code = ALKP) UR PROTEIN/CREATININE [id number] 10:22:00 Test Item Value Reference Range Interpretation Comments UR PROTEIN RANDOM (test code = 21.3 mg/dL PROTU) UR CREATININE RANDOM (test 85.2 mg/dL code = CREATU) PROTEIN/CREATININE RATIO (test 250.0 mg/gcrea <200 H code = P/CRATIO) CBC W/AUTO [id number] 10:05:00 Test Item Value Reference Range Interpretation Comments WHITE BLOOD CELL (test code = WBC) 9.3 K/mm3 6.5-12.3 N RED BLOOD CELL (test code = RBC) 5.01 M/mm3 3.51-4.69 H HEMOGLOBIN (test code = HGB) 13.1 g/dL 10.1-13.8 N HEMATOCRIT (test code = HCT) 39.4 % 32.5-41.8 N MEAN CELL VOLUME (test code = MCV) 78.6 fL 84.6-96.6 L MEAN CELL HGB (test code = MCH) 26.1 pg 27.3-33.9 L MEAN CELL HGB CONCETRATION (test 33.2 gm/dL 32.0-34.2 N code = MCHC) RED CELL DISTRIBUTION WIDTH (test 14.9 % 12.2-16.3 N code = RDW) PLATELET COUNT (test code = PLT) 245 K/mm3 134-363 N MEAN PLATELET VOLUME (test code = 11.2 fL 9.2-12.7 N MPV) NEUTROPHIL % (test code = NT%) 73.5 % 57.9-77.3 N LYMPHOCYTE % (test code = LY%) 19.0 % 14.5-29.7 N MONOCYTE % (test code = MO%) 6.2 % 3.6-10.2 N EOSINOPHIL % (test code = EO%) 0.6 % 0.0-3.0 N BASOPHIL % (test code = BA%) 0.3 % 0.1-0.9 N NEUTROPHIL # (test code = NT#) 6.8 K/mm3 LYMPHOCYTE # (test code = LY#) 1.8 K/mm3 MONOCYTE # (test code = MO#) 0.6 K/mm3 EOSINOPHIL # (test code = EO#) 0.06 K/mm3 BASOPHIL # (test code = BA#) 0.0 K/mm3 RBC MORPHOLOGY REQUIRED (test code NORMAL NORMAL = RBCM) PLATELET MORPHOLOGY REQUIRED (test NORMAL NORMAL code = PLTMR) COVID 19 Asymptomatic IH [id number] 16:21:00 Test Item Value Reference Range Interpretation Comments COVID 19 Asymptomatic Test not NEGATIVE SEE LA BCORP IH AG (test code = performed RESULT.DU PLICATE COVNONPUIAG) REQUEST.Previou s ly reported result: NEGATIV E Edited by: CHERRI on 20:1621 Novel Coronavirus 16:19:00 Test Item Value Reference Range Interpretation Comments Novel Coronavirus Not Detected NEGATIVE Positive r esults are 2019 Inhouse indicative of t he (test code = presence ofSARS -CoV-2 [id number]) RNA, clinical c orrelation with patient hi storyand other diagnosti c information is necessary to determinepat ient infection statu s. Positive result s do not rule outbacteri al infection or co -infection with other viru ses. Negative result s do not preclude SARS-C oV-2 infection andsh ould not be used as the sole basis for patient managementdecis ions. Negative result s must be combined with otherclinical observations, p atient history, and epidemiological informatio n. Detection o f SARS-CoV-2 RNA may be affected bysamp le collection meth ods, storage conditi ons, and/or stageof infection. Viral RNA mut ations, vaccinations, antiviraltherap eutics, antibiotics, chemotherapeuti c orimmunosuppres radha drugs have not been e valuated for effectson d etection. Results are for the identification of SARS-CoV-2 RNA usingthe [employer] M2000 Sy stem under the FDA Emergen cy UseAuthorizatio n. The testing is perf ormed by brenda d in the procedures for the He M2000 molecular diagnostic SARS-CoV-2 assa y in vitro. COVID 19 Asymptomatic IH [id number] 06:43:00 Test Item Value Reference Range Interpretation Comments COVID 19 Asymptomatic IH AG (test NEGATIVE NEGATIVE code = COVNONPUIAG) UR HCG [id number] 17:15:00 Test Item Value Reference Range Interpretation Comments UR HCG QUAL (test code = HCGQLU) NEGATIVE NEGATIVE
[2021-11-16 23:44] LABS: Urine Blood 1+ (Negative); Urine Glucose Negative (Negative); Urine Protein Negative (Negative); Urine Specific Gravity >=1.030 (1.005-1.030); Urine pH 5.5 (5.0-7.0)
[2021-11-16] MEDS ORDERED: ONDANSETRON 4 MG/2 ML VIAL ONE (23:44)
[2021-11-16 23:55] LABS: Absolute Lymphocytes (CBC) 1.9 K/uL (0.7-4.9); Lymphocytes % 19.5 % (15.3-44.8); MCV 75.1 fL (80-100); MPV 8.3 fL (7.6-11.3); RBC Red Blood Cell Count 5.73 M/uL (3.86-4.86)
[2021-11-17 00:08] LABS: Albumin 3.8 g/dL (3.4-5.0); Bilirubin Total 0.3 mg/dL (0.2-1.0); Potassium 3.7 mmol/L (3.5-5.1); Protein, Total 7.6 g/dL (6.4-8.2)
--- NOTE | 2021-11-17 01:33 | ER ---
Nurse's Notes [facility] Name: Jennifer Tyler Age: 26 yrs Sex: Female : 1995 Arrival Date: 11/16/2021 Time: 22:56 Bed 6 Private MD: Diagnosis: Upper abdominal pain, unspecified Presentation: 11/16 23:07 Chief complaint: Patient states: "I am having really bad pain in my stomach it gets vc1 worse when I eat, it's not constant. My mom thought maybe I had heart burn. I got a steroid shot today at [facility] urgent care because I broke out in a rash.". Coronavirus screen: Vaccine status: Patient reports receiving the 2nd dose of the covid vaccine. [employer] At this time, the client does not indicate any symptoms associated with coronavirus-19. Ebola Screen: No symptoms or risks identified at this time. Initial Sepsis Screen: Does the patient meet any 2 criteria? No. Patient's initial sepsis screen is negative. Does the patient have a suspected source of infection? No. Patient's initial sepsis screen is negative. Risk Assessment: Do you want to hurt yourself or someone else? Patient reports no desire to harm self or others. Onset of symptoms was November 16, 2021 at 15:00. 23:07 Method Of Arrival: Ambulatory vc1 23:07 Acuity: TOMÁS 4 vc1 23:53 Acuity: TOMÁS 3 kl Triage Assessment: 23:12 General: Appears in no apparent distress. uncomfortable, Behavior is calm, cooperative, vc1 appropriate for age. Pain: Complains of pain in epigastric area Pain does not radiate. Pain currently is 6 out of 10 on a pain scale. Quality of pain is described as aching, pressure. EENT: No deficits noted. Neuro: Level of Consciousness is awake, alert, obeys commands, Oriented to person, place, time, situation, Appropriate for age. Cardiovascular: Capillary refill < 3 seconds Patient's skin is warm and dry. Respiratory: No deficits noted. GI: Reports epigastric pain, nausea, Eating makes it worse. : No deficits noted. Derm: No deficits noted. Musculoskeletal: No deficits noted. 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 - Social history:: Smoking status: Patient denies any tobacco usage or history of. Screenin:11 Abuse screen: Denies threats or abuse. Nutritional screening: No deficits noted. vc1 Tuberculosis screening: No symptoms or risk factors identified. Fall Risk None identified. Assessment: 23:45 General: Appears uncomfortable, well groomed, well developed, Behavior is calm, kl cooperative. GI: Bowel sounds present X 4 quads. Abdomen is tender to palpation in right upper quadrant and left upper quadrant. GI: Reports nausea. : No deficits noted. No signs and/or symptoms were reported regarding the genitourinary system. Vital Signs: 23:07 BP 155 / 102; Pulse 64; Resp 18; Temp 97.6; Pulse Ox 100% ; Weight 99.79 kg; Height 4 vc1 ft. 10 in. (147.32 cm); Pain 6/10; 11/17 00:12 BP 123 / 76; Pulse 72; Resp 16; Pulse Ox 99% on R/A; Pain 0/10; kl 01:11 BP 115 / 93; Pulse Ox 99% on R/A; kl 11/16 23:07 Body Mass Index 45.98 (99.79 kg, 147.32 cm) vc1 ED Course: 11/16 22:56 Patient arrived in ED. bp1 22:57 Smith Marquez DO is Attending Physician. ms3 23:09 Triage completed. vc1 23:10 Arm band placed on right wrist. vc1 23:17 Golden Medrano, ELIE is Primary Nurse. as6 23:43 CBC with Diff Sent. kl 23:43 CMP Sent. kl 23:43 Lipase Sent. kl 23:59 Abdomen Limited US In Process Unspecified. EDMS 11/17 00:13 No apparent distress. Resting quietly. Awaiting radiology results. kl 01:12 No apparent distress. Resting quietly. kl 01:31 Shai Thibodeaux MD is Referral Physician. ms3 01:38 Bed in low position. Call light in reach. as6 01:42 No provider procedures requiring assistance completed. IV discontinued, intact, as6 bleeding controlled, No redness/swelling at site. Pressure dressing applied. Administered Medications: 11/16 23:43 Drug: Zofran (Ondansetron) 4 mg Route: IVP; Site: right forearm; 11/17 00:13 Follow up: Response: Marked relief of symptoms Medication: 01:42 VIS not applicable for this client. as6 Outcome: 01:32 Discharge ordered by . ms3 01:42 Discharged to home ambulatory. as6 01:42 Condition: stable 01:42 Discharge instructions given to patient, Instructed on discharge instructions, follow up and referral plans. Demonstrated understanding of instructions, follow-up care. 01:43 Patient left the ED. as6 Signatures: Dispatcher [employer] EDMS Chey Ta RN RN kl Sims, Marcus, DO DO ms3 Shanelle Tyler Ashby, RN RN as6 Caryn Campbell RN RN vc1 Corrections: (The following items were deleted from the chart) 11/16 23:11 23:07 Chief complaint: Patient states: "I am having really bad pain in my stomach it vc1 gets worse when I eat, it's not constant. My mom thought maybe I had heart burn. vc1
--- NOTE | 2021-11-17 01:33 | EDPHYS ---
Physician Documentation [facility] Name: Jennifer Tyler Age: 26 yrs Sex: Female : 1995 Arrival Date: 11/16/2021 Time: 22:56 Bed 6 Private MD: ED Physician Smith Marquez HPI: 11/17 00:20 This 26 yrs old Female presents to ER via Ambulatory with complaints of ms3 Abdominal Pain, Nausea. 00:20 -year-old female with past medical history of hypertension presents for epigastric ms3 abdominal pain that began 8 hours prior to arrival. Patient states pain is 6/10 described as being sharp. Patient states the pain is worse with eating. Patient endorses nausea. Patient denies fevers, chills, vomiting. 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 - Social history:: Smoking status: Patient denies any tobacco usage or history of. ROS: 11/17 00:20 Constitutional: Negative for fever, and chills. Neck: Negative for injury, pain, and ms3 swelling, Cardiovascular: Negative for chest pain, and palpitations. Respiratory: Negative for shortness of breath, cough, wheezing, and pleuritic chest pain, MS/Extremity: Negative for injury and deformity, Skin: Negative for injury, rash, and discoloration, Psych: Negative for depression, anxiety, suicide ideation, homicidal ideation, and hallucinations. Abdomen/GI: Positive for abdominal pain, nausea. All other systems are negative. Exam: 00:20 Constitutional: This is a well developed, well nourished patient who is awake, alert, ms3 and in no acute distress. Head/Face: Normocephalic, atraumatic. Neck: Trachea midline, no cervical lymphadenopathy. Supple, full range of motion without nuchal rigidity, or vertebral point tenderness. No Meningismus. Chest/axilla: Normal chest wall appearance and motion. Nontender with no deformity. Cardiovascular: Regular rate and rhythm with a normal S1 and S2. No gallops, murmurs, or rubs. Normal PMI, no JVD. No pulse deficits. Respiratory: Lungs have equal breath sounds bilaterally, clear to auscultation and percussion. No rales, rhonchi or wheezes noted. No increased work of breathing, no retractions or nasal flaring. 00:20 Back: No spinal tenderness. No costovertebral tenderness. Full range of motion. Skin: Warm, dry with normal turgor. Normal color with no rashes, no lesions, and no evidence of cellulitis. MS/ Extremity: Pulses equal, no cyanosis. Neurovascular intact. Full, normal range of motion. Psych: Awake, alert, with orientation to person, place and time. Behavior, mood, and affect are within normal limits. 00:20 Abdomen/GI: Inspection: abdomen appears normal, Bowel sounds: normal, Palpation: mild abdominal tenderness, in the epigastric area. Vital Signs: 11/16 23:07 BP 155 / 102; Pulse 64; Resp 18; Temp 97.6; Pulse Ox 100% ; Weight 99.79 kg; Height 4 vc1 ft. 10 in. (147.32 cm); Pain 6/10; 11/17 00:12 BP 123 / 76; Pulse 72; Resp 16; Pulse Ox 99% on R/A; Pain 0/10; kl 01:11 BP 115 / 93; Pulse Ox 99% on R/A; kl 11/16 23:07 Body Mass Index 45.98 (99.79 kg, 147.32 cm) vc1 MDM: 11/16 23:38 Patient medically screened. ms3 11/17 00:20 Differential diagnosis: Nonspecific abd pain, gastritis, cholecystitis. ms3 01:33 Data reviewed: vital signs, nurses notes, lab test result(s), radiologic studies, and ms3 as a result, I will discharge patient. Data interpreted: Pulse oximetry: on room air is 99 %. Interpretation: normal. Counseling: I had a detailed discussion with the patient and/or guardian regarding: the historical points, exam findings, and any diagnostic results supporting the discharge/admit diagnosis, lab results, radiology results, the need for outpatient follow up, to return to the emergency department if symptoms worsen or persist or if there are any questions or concerns that arise at home. ED course: On reevaluation patient is improved, alert and oriented x4, in no apparent distress, nontoxic-appearing, speaking full sentences, ambulatory in emergency department. . 11/16 23:26 Order name: CBC with Diff; Complete Time: 00:09 ms3 11/16 23:26 Order name: CMP; Complete Time: 00:09 ms3 11/16 23:26 Order name: Lipase; Complete Time: 00:09 ms3 11/16 23:26 Order name: Abdomen Limited US ms3 11/16 23:44 Order name: Urine Dipstick-Ancillary; Complete Time: 00:09 EDMS 11/16 23:26 Order name: IV Saline Lock; Complete Time: 23:43 ms3 11/16 23:26 Order name: Labs collected and sent; Complete Time: 23:43 ms3 Administered Medications: 11/16 23:43 Drug: Zofran (Ondansetron) 4 mg Route: IVP; Site: right forearm; 11/17 00:13 Follow up: Response: Marked relief of symptoms kl Disposition Summary: 11/17/21 01:32 Discharge Ordered Location: Home ms3 Condition: Stable ms3 Diagnosis - Upper abdominal pain, unspecified ms3 Followup: ms3 - With: Shai Thibodeaux MD - When: 2 - 3 days - Reason: Re-evaluation by your physician Discharge Instructions: - Discharge Summary Sheet ms3 - Abdominal Pain, Adult ms3 - Cholelithiasis ms3 Forms: - Medication Reconciliation Form ms3 - Thank You Letter ms3 - Antibiotic Education ms3 - Prescription Opioid Use ms3 Signatures: Dispatcher [employer] Chey Aguilar RN Smith Rodrigez DO DO ms3 Caryn Campbell RN RN vc1
[2021-11-17 02:23] VITALS: TEMP 97.6
[2021-11-17 02:26] VITALS: O2SAT 99
[2021-11-17 02:28] VITALS: BP 115/93
--- NOTE | 2021-11-17 14:31 | RAD REPORT ---
EXAM DESCRIPTION: US - Abdomen Exam Limited - 11/17/2021 12:59 am CLINICAL HISTORY: 26 years Female ABD PAIN COMPARISON: No prior exams provided for comparison. TECHNIQUE: Real-time and donovan scale sonographic imaging of the right upper quadrant was performed. FINDINGS: The gallbladder contains multiple small gallstones. There is no gallbladder wall thickenin g, pericholecystic fluid, or sonographic Jimenez's sign. The common bile duct is within normal limits, measuring 4 mm in diameter. There is no intrahepatic biliary ductal dilatation. Visualized portions of the liver appear normal. IMPRESSION: Cholelithiasis without cholecystitis or biliary dilatation. Electronically signed by: Hilary Tran MD 11/17/2021 12:41 AM CDT Due to temporary technical issues with the PACS/Fluency reporting system, reports are being signed by the in house radiologists without review as a courtesy to insure prompt reporting. The interpreting radiologist is fully responsible for the content of the report.
== END 2021-11-17 01:43 | disposition home or self-care (01) ==
LOC: ER 22:53
DX: R10.13 Epigastric pain (principal); I10 Essential (primary) hypertension
CPT/HCPCS: 85025; 36415; 81003; 83690; 80053; 76705; 96374; 99283; J2405

== ENCOUNTER 2022-02-05 13:58 | Emergency (ER) | payer BC ==
--- OUTSIDE RECORDS SUMMARY | 2022-02-05 14:02 | XMS REPORT | Continuity of Care Document ---
:1995 Author Organization [facility] t Address [address] [place] [address] Care Team Providers Name Role Phone PCP, PATIENT DOES NOT HAVE A Primary Care Physician Unavaila Laura Vicente Attending Clinician Unavailable Caren Henson Attending Clinician Unavailable SOHAIL CHRISTIANSEN Attending Clinician Unavailable Ebrahimakayla CLEANERSSohail Attending Clinician Nneka Lopez Attending Clinician NNEKA HINOJOSA Attending Clinician Unavailable Anaid Gaston RN Attending Clinician Unavailable Rita Richardson MD Attending Clinician Shanelle Jones Attending Clinician RITA RICHARDSON Attending Clinician Unavailable Doctor Unassigned, [place] Attending Clinician Unavailable Lab, Adc Fam Pob I Attending Clinician Unavailable Libby Walton Attending Clinician Sadie Love Attending Clinician SADIE APONTE Attending Clinician Unavailable Laura Barnes Admitting Clinician Unavailable Payers Payer Name Policy Type Policy Number Effective Date Expiration Date S jennifer [facility] [id number] 2019 00:00:00 Problems Condition Condition Condition Status Onset Resolution Last Treating Co mments Source Name Details Category Date Date Treatment Clinician Date No known No known Disease Unive rs active active ity of problems problems [facility] Allergies, Adverse Reactions, Alerts Allergy Allergy Status Severity Reaction(s) Onset Inactive Treating Comm ents Source Name Type Date Date Clinician No Known DA Active U 2020-04 [facility] 116 [facility] 00 [facility] No Known DA Active U [facility] Allergie 11-27 [place] [facility] 00:[facility]: [facility] 00 [facility] Medical [place] No Known DA Active U [facility] Allergie 11-27 [place] 00:00: [facility] 00 [facility] NO KNOWN Drug Active Univers ALLERGIE Class ity of S [facility] Social History Social Habit Start Date Stop Date Quantity Comments Source Exposure to 2021-11-30 2021-12-10 Not sure [facility]-CoV-2 00:00:00 16:20:00 [facility] (event) [place] Tobacco use and 2021-10-08 2021-10-08 Smokeless tobacco Un iversity of exposure 00:00:00 00:00:00 non-user [facility] Sex Assigned At [birth year] Universit y of 00:00:00 00:00:00 [facility] Smoking Status Start Date Stop Date Source Never smoked tobacco [facility] Medications Ordered Filled Start Stop Current Ordering Indication Dosage Frequency Signature Comments Components Source Medication Medication Date Date Medication? Clinician (SIG) Name Name methocarbam 2021- Yes [id number] 750mg Take 1 Univers oL 12-10 tablet by ity of (ROBAXIN-75 00:00: 04:59 mouth 4 [place] 0[place] 750 mg 00 :00 (four) Medical tablet times Branch daily for 10 days. triamcinolo 2021- No [id number] 40mg Univers ne 11-16 ity of acetonide 23:15: 22:15 [place] (KENALOG) 00 :00 Medical injection Branch 40 mg triamcinolo 2021- No [id number] 40mg 40 mg, Univers ne 11-16 Intramuscu ity of acetonide 23:15: 22:15 [place], ONCE, [place] (KENALOG) 00 :00 1 dose, On Medi kai injection Sun Branch 40 mg 11/16/21 at 1815, Routine methylPREDN 2022-0 Yes [id number] Take by Univers ISolone 7-24 mouth ity of (MEDROL, 00:00: SEE-INSTRU Ashok as MARIO,) 4 mg 00 CTIONS. Medica l tablets follow Branch package directions hydrOXYzine 2022-0 Yes [id number] 25mg Take 1 Univers 25 mg 7-24 tablet by ity of tablet 00:00: mouth [place] 00 every 6 Medical (six) Branch hours as needed for Itching. methylPREDN 2022-0 Yes [id number] Take by Univers ISolone 7-24 mouth ity of (MEDROL, 00:00: SEE-INSTRU Ashok as MARIO,) 4 mg 00 CTIONS. Medica l tablets follow Branch package directions hydrOXYzine 2-0 Yes [id number] 25mg Take 1 Univers 25 mg 7-24 tablet by ity of tablet 00:00: mouth [place] 00 every 6 Medical (six) Branch hours as needed for Itching. guaiFENesin 2-0 Yes [id number] 400mg Take 1 Univers 400 mg 6-15 tablet by ity of tablet 00:00: mouth [place] 00 every 4 Medical (four) Branch hours as needed for Cough. benzonatate 2022-0 Yes [id number] 200mg Take 2 Univers 100 mg 6-15 capsules ity of capsule 00:00: by mouth [place] 00 every 8 Medical (eight) Branch hours as needed for Cough. fluticasone 2-0 Yes [id number] 1{spray Use 1 Univers propionate 6-15 } [place] in ity o f 50 00:00: each [place] mcg/actuati 00 nostril Medic al on nasal daily. Branch spray guaiFENesin 2-0 Yes [id number] 400mg Take 1 Univers 400 mg 6-15 tablet by ity of tablet 00:00: mouth [place] 00 every 4 Medical (four) Branch hours as needed for Cough. benzonatate 2022-0 Yes [id number] 200mg Take 2 Univers 100 mg 6-15 capsules ity of capsule 00:00: by mouth [place] 00 every 8 Medical (eight) Branch hours as needed for Cough. fluticasone 2022-0 Yes [id number] 1{spray Use 1 Univers propionate 6-15 } [place] in ity o f 50 00:00: each [place] mcg/actuati 00 nostril Medic al on nasal daily. Branch spray sulfamethox 2021-0 Yes 1{tbl} Take 1 Un karan azole-trime 6-09 tablet by ity of thoprim 00:00: mouth 2 [place] 800-160 mg 00 (two) Medical per tablet times Branch daily. sulfamethox 2021-0 Yes 1{tbl} Take 1 Un karan azole-trime 6-09 tablet by ity of thoprim 00:00: mouth 2 [place] 800-160 mg 00 (two) Medical per tablet times Branch daily. metoprolol 2021-0 Yes 25mg Take 25 mg U nivers succinate 6-02 by mouth 2 ity of XL 25 mg 24 00:00: (two) [place] hr tablet 00 times Medical daily. Branch metoprolol 2021-0 Yes 25mg Take 25 mg U nivers succinate 6-02 by mouth 2 ity of XL 25 mg 24 00:00: (two) [place] hr tablet 00 times Medical daily. Branch hydroCHLORO 0 Yes 12.5mg Take 12.5 Univers thiazide 5-18 mg by ity of 12.5 mg 00:00: mouth [place] tablet 00 every Medical morning. Branch hydroCHLORO 0 Yes 12.5mg Take 12.5 Univers thiazide 5-18 mg by ity of 12.5 mg 00:00: mouth [place] tablet 00 every Medical morning. [place] Vital Signs Vital Name Observation Time Observation Value Comments Source Systolic blood 2021-12-10 21:28:00 133 mm[Hg] [facility] sity [facility] Diastolic blood 2021-12-10 21:28:00 85 mm[Hg] [facility] Body temperature 2021-12-10 21:26:00 36.67 Chyna [facility] Respiratory rate 2021-12-10 21:26:00 16 /min [facility] Body height 2021-12-10 21:26:00 147.3 cm [facility] Body weight 2021-12-10 21:26:00 101.47 kg [facility] BMI 2021-12-10 21:26:00 46.75 kg/m2 [facility] Oxygen saturation in 2021-12-10 21:26:00 99 /min University Arterial blood by [facility] Pulse oximetry Branch Heart rate 2021-12-10 21:26:00 58 /min [facility] 2021-11-16 21:41:00 45.98 kg/m2 [facility] Oxygen saturation in 2021-11-16 21:41:00 99 /min [facility] Arterial blood by [facility] Pulse oximetry Branch Systolic blood 2021-11-16 21:41:00 127 mm[Hg] Univer sity of pressure [facility] Diastolic blood 2021-11-16 21:41:00 79 mm[Hg] Unive rsity of pressure [facility] Heart rate 2021-11-16 21:41:00 79 /min [facility] Body temperature 2021-11-16 21:41:00 37.11 Chyna [facility] 2021-11-16 21:41:00 18 /min Univ [facility] Body height 2021-11-16 21:41:00 147.3 cm [facility] Body weight 2021-11-16 21:41:00 99.791 kg [facility] Procedures Procedure Date / Time Performed Performing Clinician Carlos Eduardo doe [id number] 2021-03-19 00:00:00 DRYDA [facility] Encounters Start End Encounter Admission Attending Care Care Encounter Source Date/Time Date/Time Type Type Clinicians Facility Department ID 2021-07-08 [facility] [id number] Common 15:32:03 [facility] 2021-04-04 Inpatient DONALD Amato LD [id number] [facility] 16:23:00 Laura Guevara [facility] 2019-12-01 Inpatient MITCHEL Henson [facility] DAYS [id number] [facility] 07:30:00 Caren Laguna [facility] 2021-12-10 2021-12-10 Outpatient EMERY OLIVER AZNEIL [id number] Univers 16:20:00 16:33:41 SOHAIL lobato [facility] 2021-12-10 2021-12-10 Urgent Raysa AZENIL [id number] Univers 16:20:00 16:33:41 Care Rania HEALTH [id number] it y of [place] 4.2.7.2.686 Ashok as SOHAIL?BLEA [phone] [address] MEDICAL OFFICE [facility] 2021-11-16 2021-11-16 [facility] 1.2.840.114 [id number] Univers 16:40:00 17:00:00 Care Nneka HEALTH [id number] it y of [place] 4.2.7.2.686 Ashok as SOHAIL?BLEA [id number] [address] OFFICE [facility] 2021-11-16 2021-11-16 [facility] [id number] Univers 16:40:00 16:40:00 NNEKA ity [facility] 2021-10-09 2021-10-09 Telephone RADHA Gaston [id number] Univers 00:00:00 00:00:00 Anaid RHONDA 350.1.13.10 it y of HOSPITAL 4.2.7.2.686 Ashok as [id number] [facility] 019 [place] 2021-10-08 2021-10-08 Rita Rousseau [facility] 1.2.840.114 [id number] Univers 17:00:00 17:19:07 Care Farhad, Shanelle HEALTH 350.1.13.10 ity of [place] 4.2.7.2.686 Ashok as SOHAIL?BLEA [phone] [address] MEDICAL OFFICE [facility] 2021-10-08 2021-10-08 Outpatient R CAROLE [facility] [id number] Univers 17:00:00 17:19:07 RITA lobato [facility] 2021-10-08 2021-10-08 Orders Doctor GARCIA 1.2.840.114 [id number] Univers 00:00:00 00:00:00 Only Unassigned, RHONDA 350.1.13.10 ity of [place] [facility] 4.2.7.2.686 Ashok as [phone] [facility] 009 [place] 2021-03-26 2021-03-28 Inpatient EM Molly, [facility] MEDI.01 [id number] [facility] 20:03:00 18:35:00 Damla [facility] [place] 2021-03-18 2021-03-22 Inpatient EM Molly [facility] OBPP [id number] [facility] 06:52:00 14:43:00 Damla [facility] [place] 2021-03-11 2021-03-11 Emergency EM Molly, [facility] JESUS [id number] [facility] 09:37:00 11:37:00 Damma [facility] [place] 2020-05-16 2020-05-16 Outpatient R [facility] [id number] Univers 15:40:00 15:40:00 ity [facility] 2020-05-16 2020-05-16 Laboratory Lab, [facility] Fam Pob I [facility] 1.2. 840.114 [id number] Univers 15:38:01 15:38:19 Only Libby [facility]1.13.10 [facility] 4.2.7.2.686 Ashok as Professio [phone] Id dical nal 044 [place] [address] [facility] 2020-01-10 2020-01-10 Outpatient R [facility] [id number] Univers 08:00[facility]00 [facility] 2020-01-09 2020-01-09 Laboratory Lab, [facility] Fam Pob I [facility] 1.2. 840.114 [id number] Univers 16:51:12 17:11:12 Only Nneka Hinojosa [facility].1.13.10 [facility] 4.2.7.2.686 Ashok as Professio [phone] Id dical nal 044 [place] [address] [facility] 2020-01-09 2020-01-09 Outpatient R [facility] [id number] Univers 17:00:00 17:00:00 [facility] 2019-12-14 2019-12-14 Laboratory Lab, [facility] Fam Pob I [facility] 1.2. 840.114 [id number] Univers 14:13:28 14:33:28 Only Sadie [facility] 350.1.13.10 luis alfredo lee [place] 4.2.7.2.686 Ashok as Regino [phone] Id dicjose francisco [address] Office [facility] One 2019-12-14 2019-12-14 Outpatient Anna JOLLY [facility] [id number] Univers 14:20:00 14:20:00 SADIE pavanjennie of [facility] Results Test Description Test Time Test Comments Results Result Comments Source CYTOLOGY NON CONSULTING PROPERTY MANAGER 2021-03-28 14:55:00 Test Item Value Reference Range Interpretation Comme nts CYTOLOGY RUN NON CONSULTING PROPERTY MANAGER DATE: 03/28/21 [facility] PAGE 1 RUN TIME: 1455 Specimen Inquiry RUN USER: INTERFACE (test ADRIEN code = NT: SANDRA SILVER LOC: [facility] U #: [id number] AGE/SX: 25/ ROOM: [facility]9290 RE03/26/21REG DR: Laura Barnes MD : [birth year] BED: A DIS: STATUS: ADM Tasha TLOC: SPEC #: [id number] RECD: STATUS: JENNIFER WILLIAMSON #: [id number] CLAUDIA: 03/27/21- SUBM DR: Laura Barnes MD ENTERED: 1 05/28/20 SP TYPE: CYTO NGYN OTHR DR: DOES_NOT KNOW ORDERED: ANATOMIC SPEC, SPEC TRACK, 5 0885, 76761 COPIES TO: DOES_NOT KNOW Laura Barnes MD 9344 [facility] [address] [place] [id number] PROCEDURES: [id number] (03/27/21- 1250) [id number] (03/28/21-1444) TISSUES: A. PELVIC FLUID WASHING (CYTOSPIN,CELL BLOCK) - PELVIC ABSCESS FLUID FINAL DIAGNOSIS PELVIC ABSCE SS:-Marked acute inflammation, consistent with the provided history of an abscess. -No malignant epithelial cells identified. GROSS DESCRIPTION Site A received in a tubular container labeled wi th the patient's name and date of birthdesignated "pelvic abscess fluid" is 5 mL of red-vela vi scous fluid. The specimen will besent to [facility] for cytospin and cell block. Technical com ponent performed at [facility],[place] [address], [place] [address] Unless gross only, the diagn osis is based upon microscopic examination.Immunohistochemistry: This test was developed and its p erformance characteristicsdetermined by this laboratory. It has not been approved nor does it ne ed approval by Anton FDA. Appropriate positive and negative controls are reviewed and judged to b eacceptable. This laboratory is certified under the Clinical Laboratory ImprovementAmendm ents (CLIA-88) as qualified to perform high complexity clinical laboratory testing. CONTINUED ON NEXT PAGE RUN DATE: 03/28/21 [facility] PAGE 2 RUN TIME: 1454 Specimen Inquiry RUN USER: INTERFACE SPEC #: [id number] PATIENT: SANDRA SILVER #[id number] (Continued) ------ CLINICAL INFORMATION PELVIC ABSCESS C SECTION -- Signed Dain Frias 03/28/21 1455 END OF REPORT CBC W/MANUAL [id number] 10:44:00 Test Item Value Reference Range Interpretation [...] (test code = NORMAL NORMAL PLTMORPH) - SC PERC [id number] 00:00:00 [facility] [place] [facility]A [facility] : 1995 Sex: F Patient Name: SANDRA SILVER Unit No: [id number] EXAMS: CPT CODE: [id number] CT PERC DRAIN 86020 Radiation Dose CTDIVOL = 43.3 (mGy): DLP = 2485.87 (mGy-cm) PROCEDURE INFORMATION: Exam: IRDRAIN PERITONEAL ABCESS OPEN CT-GUIDED PERCUTANEOUS ABSCESS DRAINAGE CATHETER PLACEMENT X2 Exam dateand time: 03/27/2021 10:40 AM Age: 25 years old Clinical indication: Symptoms: Rectus sheath abscess;Prior surgery TECHNIQUE: Imaging protocol: IR DRAIN PERITONEAL [...] summary: Preliminary axial noncontrast CT images again demonstrate the large complex fluid collection containing multiple air bubbles within the lower rectus sheath and the 3 x 4.5 cm midline subcutaneous fluid collection in the lower abdominal wall deep to the transverse incision. Under sterile conditions, utilizing CT guidance and 1% lidocaine local anesthesia, an 18gauge Chiba needle was introduced into the rectus sheath collection. Grossly infected foul-smelling [facility] NAME: NADEEMSANDRAOSCAR RAMOS Radiology Department PHYS: Mireya Monk [address] : 1995 AGE: 25 SEX: F [address] LOC: F.2600 A PHONE #: [phone] EXAM DATE: 03/27/2021 STATUS: ADM IN FAX #: [phone] RAD NO: Page 1 Signed Report 1 Patient Name: SANDRA SILVER Unit No: [id number] EXAMS: CPT CODE: [id number] CT PERC DRAIN 45555 <Continued> hemorrhagic material was aspirated. A superstiff guidewire was introduced. The tract was dilated to 12 Zambian. A 12 Zambian self- retaining pigtail drainage catheter was introduced. The pigtail loop was reformed within the collection. 40 cc of infected material was aspirated. The catheter was attached to a Elmo-Royal drain. Next, under sterile conditions, utilizing CT guidance and 1% lidocaine local anesthesia, an 18 gauge Chiba needle was introduced into the lower subcutaneous fluid collection. Similar infected material was aspirated. A superstiff guidewire was introduced. The tract was dilated to 8 [place]ian. A self-retaining 8 Zambian pigtail drainage c atheter was introduced and the pigtail loop was [...] CTDI: 43.30 DLP: 2485.87 Trnscrbd D/ (1300) GCD.CPS [facility] NAME: SILVERSANDRA Radiology Department PHYS: Mireya Monk [address] : 1995 AGE: 25 SEX: F [place] [address] LOC: F.2600 A PHONE #: [phone] EXAM DATE: 03/27/2021 STATUS: ADM IN FAX #: [phone] RAD NO: Page 2 Signed Report 1 Patient Name: SANDRA SILVER RACHEL Unit No: [id number] EXAMS: CPT CODE: [id number] CT PERC DRAIN 30057 <Continued> Orig Print D/T: S: 03/27/2021 (1301) [facility] NAME: SILVEROMAR MartinSANDRAOSCAR RAMOS Radiology Department PHYS: Mireya Monk [address] : 1995 AGE: 25 SEX: F [place] [address] LOC: Joanne A PHONE #: [phone] EXAM DATE: 03/27/2021 STATUS: ADM IN FAX #: [phone] RAD NO: Page 3 Signed Report 1PROTHROMBIN [id number] 21:02:00 Test Item Value Reference Range Interpretation Comments PROTHROMBIN TIME PATIENT (test code 11.8 secs 10.1-12.3 N = PTP) THROMBOPLASTIN TIME [id number] 21:02:00 Test Item Value Reference Range Interpretation Comments THROMBOPLASTIN TIME PARTIAL (test 32.5 secs 22-38 N code = PTT) UA RFLX MICR CULT IF [id number] 19:00:00 Test Item Value Reference Range Interpretation [...] CATCHSpecimen Comment: CLEAN CATCHCOVID 19 Asymptomatic IH [id number] 16:50:00 Test Item Value Reference Range Interpretation Comments COVID 19 NEGATIVE NEGATIVE This test has b een Asymptomatic IH AG authorize d only for the (test code = detection ofpro teins from COVNONPUIAG) SARS-CoV-2, not for any other viruses orpathogens. Ne gative results should be treated as presumptive andconfirmed [...] or approved; th e test hasbeen authori penny by FDA under an Emerge ncy Use Authorization(E UA) for use by jenifferato denae certified under the CLIA thatmeet the [...] and/o r diagnosis of CO VID-19 under Xuilepy87 4(b)(1) of the Act, 21 U.S .C. 360bbb-3(b)(1), unless theauthorizatio n is terminated or r evoked sooner. CBC W/AUTO [id number] 16:13:00 Test Item Value Reference Range Interpretation [...] NORMAL NORMAL code = PLTMR) COMPREHENSIVE METABOLIC [id number] 16:09:00 Test Item Value Reference Range Interpretation [...] units/L 46-116 H code = ALKP) LIVER [id number] 16:09:00 Test Item Value Reference Range Interpretation Comments BILIRUBIN DIRECT (test code = BILD) 0.1 mg/dL <0.2 N [id number] 16:09:00 Test Item Value Reference Range Interpretation Comments LIPASE (test code = LIP) 125 units/L 73-393 N LACTIC [id number] 16:09:00 Test Item Value Reference Range Interpretation Comments LACTIC ACID (test code = LACT) 1.2 MMOL/L 0.5-2.2 N - CT ABD PELVIS [id number] 00:00:00 [facility] [place] [facility]A [facility] : 1995 Sex: F Patient Name: SANDRA SILVER Unit No: [id number] EXAMS: CPT CODE: [id number] CT ABD PELVIS W/CONT 16337 Radiation Dose CTDIVOL = 20.68 (mGy): DLP = 1151.99 (mGy-cm) PROCEDURE INFORMATION: Exam: CT Abdomen And Pelvis With Contrast Exam date and time: 03/26/2021 5:06 PM Age: 25 years old Clinical indication: [...] route: INTRAVENOUS (IV) ADDITIONAL STUDY INFORMATION: CTDI volume(mGy): 20.68 Total DLP (mGy-cm): 1151.99 COMPARISON: CR XR CHEST 1V 03/26/2021 3:42 PM FINDINGS: ABDOMINAL ORGANS: No acute CT abnormalities of the liver, spleen, pancreas, adrenal glands or kidneys aredetected. There is no CT evidence of acute renal collecting system obstruction or calcified renal collecting system stone. BILIARY: The gallbladder is normally distended. No significant biliary ductal dilatation is detected. GASTROINTESTINAL: Bowel assessment is limited by the absence of bowel contrast. No gross abnormalities of the stomach or duodenum are identified. No small bowel dilatation is present to suggest [facility] NAME: SANDRA SILVER Radiology Department PHYS: Indira Foster MD [address] : 1995 AGE: 25 SEX: F [id number] LOC: [place] PHONE #: [phone] EXAM DATE: 03/26/2021 STATUS: REG ER FAX #: [phone] RAD NO: Page 1 Signed Report 1 Patient Name: NADEEMSANDRAOSCAR RAMOS Unit No: [id number] EXAMS: CPT CODE: [id number] CT ABD PELVIS W/CONT 47047 <Continued> acute obstruction. The appendix is i dentified and is not acutely inflammed. The colon demonstrates no evidence of diverticular disease or acute inflammatory wall thickening. PERITONEUM: No evidence of free intraperitoneal air. No significant free intraperitoneal fluid. RETROPERITONEUM: The abdominal aorta demonstrates no evidence of aneurysm or dissection. There [...] rectus sheath and a 2.6 x 2.0 x4.5 cm fluid collection is identified in the subcutaneous fat. 2. No additional acute CT abnormalities of the abdomen or pelvis are detected. SL:131 Electronically Signed by Miguel Desai MD on03/26/2021 at 1804 Reported and signed by: Miguel Desai MD [facility] NAME: SANDRA SILVER Radiology Department PHYS: Indira Foster MD [address] : 1995 AGE: 25 SEX: F [phone] LOC: F.ERS PHONE #: [phone] EXAM DATE: 03/26/2021 STATUS: REG ER FAX #: [phone] RAD NO: Page 2 Signed Report 1 Patient Name: SILVEROMAR MartinSANDRAOSCAR RAMOS Unit No: [id number] EXAMS: CPT CODE: [id number] CT ABD PELVIS W/CONT 94398 & lt;Continued> CC: Laura Arias; Indira Doty MD Technologist: RT Reg CTDI: DLP: Trnscrbd D/ (1804) GCD.CPS [facility] NAME: SANDRA SILVER Radiology Department PHYS: Indira Foster MD [address] : 1995 AGE: 25SEX: F [address] LOC: F.ERS PHONE #: [phone] EXAM DATE: 03/26/2021 STATUS: REG ER FAX #: [phone] RAD NO: Page 3 Signed Report 1 Patient Name: MAYCOL SILVER Unit No: [id number] EXAMS: CPT CODE: [id number] CT ABD PELVIS W/CONT 29875 <Continued> Orig Print D/T: S: 03/26/2021 (1805) [facility] NAME: SILVER,SANDRA RAMOS Radiology Department PHYS: Indira Foster MD [address] : 1995 AGE: 25 SEX: F [address] LOC: Darryl.ERS PHONE #: [phone] EXAM DATE: 03/26/2021 STATUS: REG ER FAX #: [phone] RAD NO: Page 4 Signed Report 1- XR CHEST 1 [id number] 00:00:00 [facility] [place] [facility] : 1995 Sex: F Patient Name: SANDRA SILVER Unit No: [id number] EXAMS: CPT CODE: [id number] XR CHEST 1 V 48244 PROCEDURE INFORMATION: Exam: XR Chest Exam date and time: 03/26/2021 3:42 PM Age: 25 years old Clinical indication: Patient HX: fever; Additional info: Code sepsis TECHNIQUE: Imagingprotocol: XR of the chest. Views: 1 view. [...] Orig Print D/T: S: 03/26/2021 (1601) [facility] NAME: SANDRA SILVER Radiology Department PHYS: Tiana Foster MD [address] : 1995 AGE: 25 SEX: F [address] LOC: [place] PHONE #: [phone] EXAM DATE: 03/26/2021 STATUS: REG ER FAX #: [phone] RAD NO: Page 1 Signed [id number] 12:37:00 Test Item Value Reference Range Interpretation Comments SURGICAL (test code = SR) R UN DATE: 03/25/21 [facility] PAGE 1 RUN TIME: 1237 Specimen Inquiry RUN USER: INTERFACE P ATIENT: SANDRA SILVER [facility] #: [id number] LOC: AALIYAH U #: [id number] AGE/SX: ROOM: [facility] RE03/18/21REG DR: Laura Barnes MD : [birth year] BED: A DIS: 03/22/21 STATUS: DIS IN TLOC: SPEC #: [id number] RECD: 03/21/21 STATUS: JENNIFER [facility] [facility] #: [id number] CLAUDIA: 03/18/21- SUBM DR: Laura Barnes MD ENTERED: 03/21/21 SP TYPE: SURGICAL OTHR DR: ORDERED: ANATOMIC SPEC, SPEC TRACK, [id number] PROCEDURES: [id number] (03/21/21) TISSUES: A. PLACENTA, THIRD TRIMESTER (28 [...] red cut surface with no gross lesion. Configuration Manager sections aresubmitted as follows: A1: Membrane roll and cordA2: Full thickness placental discA3: Full thickness placental disc at edge LC Technical component performed at [facility],[place] [address], [place] [address] MICROSCOPIC DESCRIPTION Technical component performed at [email or web address],[place] [address], [place] [address] Unless gross only, the diagnosis is based [...] Inquiry RUN USER: INTERFACE S PEC #: [id number] PATIENT: SANDRA SILVER #[id number] (Continued) CLINICAL INFORMATION ON MAG -- Signed SIGNATURE ON Amado Piedra 03/25/21 1237 END OF REPORT COMPREHENSIVE METABOLIC [id number] 08:14:00 Test Item Value Reference Range Interpretation [...] 46-116 N code = ALKP) CBC W/AUTO [id number] 07:41:00 Test Item Value Reference Range Interpretation [...] NORMAL NORMAL code = PLTMR) CAPILLARY BLOOD [id number] 12:19:00 Test Item Value Reference Range Interpretation [...] 21.0 % code = FIO2C) CAPILLARY BLOOD [id number] 12:18:00 Test Item Value Reference Range Interpretation [...] FIO2 (test 21.0 % code = FIO2C) [id number] 02:35:00 Test Item Value Reference Range Interpretation Comments MAGNESIUM (test code = 5.4 mg/dL 1.8-2.4 HH RESUL TS CALLED TO MAG) DELIA ArroyoREAD BACK & CONFIRME D? YES.BY [id number] 03/19/21 0234.R esults verified by rep eat analysis AG HEPATITIS B [id number] 02:42:00 Test Item Value Reference Range Interpretation Comments AG HEPATITIS B SURFACE (test code NONREACTIVE NONREACTIVE = HBSAG) AB HEPATITIS C [id number] 02:42:00 Test Item Value Reference Range Interpretation Comments AB HEPATITIS C (test code = NONREACTIVE NONREACTIVE HCVAB) SIGNAL TO CUTOFF (test code = <0.02 <0.80 N CUTOFF) AB [id number] 02:42:00 Test Item Value Reference Range Interpretation Comments AB TREPONEMA (test code = TREPAB) NONREACTIVE NONREACTIVE AB HIV 1 02:42:00 Test Item Value Reference Range Interpretation Comments AB HIV 1 2 (test NONREACTIVE NONREACTIVE Done by [facility] code = [id number]) 4th Gen HIV Ag/Ab Combo Screen CBC W/AUTO [id number] 01:33:00 Test Item Value Reference Range Interpretation [...] code = PLTMR) COVID 19 Asymptomatic IH [id number] 01:16:00 Test Item Value Reference Range Interpretation Comments COVID 19 NEGATIVE NEGATIVE This test has b een Asymptomatic IH AG authorize d only for the (test code = detection ofpro teins from COVNONPUIAG) SARS-CoV-2, not for any other viruses orpathogens. Ne gative results should be treated as presumptive andconfirmed [...] ncy Use Authorization(E UA) for use by laborato denae certified under the CLIA thatmeet the [...] and/o r diagnosis of CO VID-19 under Czjgqqo89 4(b)(1) of the Act, 21 U.S .C. 360bbb-3(b)(1), unless theauthorizatio n is terminated or r evoked sooner. [facility] [id number] 00:58:00 Test Item Value Reference Range Interpretation Comments CREATININE (test code = 0.5 mg/dL 0.5-1.0 N CREAT) SGOT/AST (test code = 64 units/L 15-37 H SPECIM EN HEMOLYZED AST) SGPT/ALT (test code = 21 units/L 12-78 N SPECIM EN HEMOLYZED ALT) LACTIC 554 units/L 81-234 H SPECIMEN HEMOLY ZED DEHYDROGENASE(LDH) (test code = LDH) : *UR PROTEIN/CREATININE [id number] 00:39:00 Test Item Value Reference Range Interpretation Comments UR PROTEIN RANDOM (test code = 8.9 mg/dL PROTU) UR CREATININE RANDOM (test 12.1 mg/dL code = CREATU) PROTEIN/CREATININE RATIO (test 735.5 mg/gcrea <200 H code = P/CRATIO) COMPREHENSIVE METABOLIC [id number] 10:27:00 Test Item Value Reference Range Interpretation [...] 46-116 H code = ALKP) UR PROTEIN/CREATININE [id number] 10:22:00 Test Item Value Reference Range Interpretation Comments UR PROTEIN RANDOM (test code = 21.3 mg/dL PROTU) UR CREATININE RANDOM (test 85.2 mg/dL code = CREATU) PROTEIN/CREATININE RATIO (test 250.0 mg/gcrea <200 H code = P/CRATIO) CBC W/AUTO [id number] 10:05:00 Test Item Value Reference Range Interpretation [...] code = PLTMR) COVID 19 Asymptomatic IH [id number] 16:21:00 Test Item Value Reference Range Interpretation Comments COVID 19 Asymptomatic Test not NEGATIVE SEE LA BCORP IH AG (test code = performed RESULT.DU PLICATE COVNONPUIAG) REQUEST.Previou s ly reported result: NEGATIV E Edited by: CHERRI on 20:1621 Novel Coronavirus [id number] 16:19:00 Test Item Value Reference Range Interpretation Comments Novel Coronavirus Not Detected NEGATIVE Positive r esults are 2019 Inhouse indicative of t he (test code = presence ofSARS -CoV-2 SREUV54HO) RNA, clinical c orrelation with patient hi [...] atient history, and epidemiological informatio n. Detection of SARS-CoV-2 RNA may be affected bysamp le collection meth ods, storage conditi ons, and/or stageof infection. Viral RNA mutat ions, vaccinations, antiviraltherap eutics, antibiotics, chemotherapeuti c orimmunosuppres radha drugs have not been e valuated for effectson d etection. Results are for the identification of SARS-CoV-2 RNA usingthe He M2000 Sy stem under the FDA Emergen cy UseAuthorizatio n. The testing is perf ormed by personneltraine d in the procedures for the iConText M2000 molecular diagnostic SARS-CoV-2 assa y in vitro. COVID 19 Asymptomatic IH [id number] 06:43:00 Test Item Value Reference Range Interpretation Comments COVID 19 Asymptomatic IH AG (test NEGATIVE NEGATIVE code = COVNONPUIAG) UR HCG [id number] 17:15:00 Test Item Value Reference Range Interpretation Comments UR HCG QUAL (test code = HCGQLU) NEGATIVE NEGATIVE
[2022-02-05 15:03] LABS: Hematocrit 47.5 % (36.0-45.0); MCV 76.9 fL (80-100); MPV 8.6 fL (7.6-11.3); RBC Red Blood Cell Count 6.18 M/uL (3.86-4.86)
[2022-02-05 17:50] LABS: Potassium 3.6 mmol/L (3.5-5.1); Troponin High Sensitivity 16.4 pg/mL (<58.9)
--- NOTE | 2022-02-05 18:04 | EDPHYS ---
Physician Documentation [facility] Name: Jennifer Tyler Age: 26 yrs Sex: Female : 1995 Arrival Date: 02/05/2022 Time: 14:02 Bed 28 Private MD: Brendan Tyson R ED Physician Lewis Martinez HPI: 02/05 14:19 This 26 yrs old Female presents to ER via Ambulatory with complaints of High rn Blood Pressure. 14:19 The patient has elevated blood pressure and discovered this at home. Onset: The rn symptoms/episode began/occurred at an unknown time. Modifying factors: The symptoms are aggravated by discontinuation of meds, hydrochlorothiazide. Associated signs and symptoms: Pertinent negatives: chest pain, dyspnea, headache, visual changes, vomiting, weakness. Severity of symptoms: At its worst the blood pressure was moderate, in the emergency department the blood pressure is unchanged. The patient has experienced similar episodes in the past. The patient has been recently seen by a physician:. 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 REports BP 120s-140s/90s. STORE LEAD: 14:11 LMP 02/01/2022 [facility] Historical: - Allergies: 14:13 Bactrim; 5 - Home Meds: 14:11 hydrochlorothiazide 12.5 mg Oral tab 1 tab once daily [Active]; metoprolol tartrate 25 jh5 mg Oral tab 1 tab 2 times per day [Active]; - PMHx: 14:11 Hypertensive disorder; 5 - PSHx: 14:11 section; 5 - Immunization history:: Adult Immunizations up to date. - Social history:: Smoking status: Patient denies any tobacco usage or history of. - Family history:: not pertinent. - Hospitalizations: : No recent hospitalization is reported. ROS: 14:19 Constitutional: Negative for fever, chills, and weight loss, Eyes: Negative for injury, rn pain, redness, and discharge, Neck: Negative for injury, pain, and swelling, Cardiovascular: Negative for chest pain, palpitations, and edema, Respiratory: Negative for shortness of breath, cough, wheezing, and pleuritic chest pain, Abdomen/GI: Negative for abdominal pain, nausea, vomiting, diarrhea, and constipation, Back: Negative for injury and pain, MS/Extremity: Negative for injury and deformity, Skin: Negative for injury, rash, and discoloration, Neuro: Negative for headache, weakness, numbness, tingling, and seizure. Exam: 14:19 Constitutional: This is a well developed, well nourished patient who is awake, alert, rn and in no acute distress. Head/Face: Normocephalic, atraumatic. Eyes: Periorbital areas with no swelling, redness, or edema. Cardiovascular: Regular rate and rhythm. No pulse deficits. Respiratory: No increased work of breathing, no retractions or nasal flaring. Abdomen/GI: Soft, non-tender Skin: Warm, dry with normal turgor. Normal color with no rashes, no lesions, and no evidence of cellulitis. MS/ Extremity: Pulses equal, no cyanosis. Neurovascular intact. Full, normal range of motion. Equal circumference. Neuro: Awake and alert, GCS 15, oriented to person, place, time, and situation. Motor strength 5/5 in all extremities. Sensory grossly intact. Cerebellar exam normal. Normal gait. 15:56 ECG was reviewed by the Attending Physician. rn Vital Signs: 14:06 BP 140 / 80; Pulse 86; Resp 18; Temp 98.8; Pulse Ox 98% ; Weight 99.79 kg; Height 4 ft. jh5 10 in. (147.32 cm); Pain 0/10; 14:45 BP 126 / 86; Pulse 55; Resp 20; Pulse Ox 98% ; kb3 15:00 BP 127 / 77; Pulse 57; Resp 20; Pulse Ox 98% ; kb3 16:00 BP 128 / 84; Pulse 54; Resp 18; Pulse Ox 99% ; kb3 17:00 BP 142 / 93; Pulse 55; Resp 16; Pulse Ox 100% ; kb3 18:00 BP 128 / 78; Pulse 56; Resp 20; Pulse Ox 100% ; kb3 14:06 Body Mass Index 45.98 (99.79 kg, 147.32 cm) jh5 MDM: 14:05 Patient medically screened. rn 18:02 Differential diagnosis: hypertensive crisis, Malignant HTN. Data reviewed: vital signs, rn nurses notes, lab test result(s), EKG, and as a result, I will discharge patient. Counseling: I had a detailed discussion with the patient and/or guardian regarding: the historical points, exam findings, and any diagnostic results supporting the discharge/admit diagnosis, lab results, the need for outpatient follow up, to return to the emergency department if symptoms worsen or persist or if there are any questions or concerns that arise at home. Counseling: I had a detailed discussion with the patient and/or guardian regarding: the presence of at least one elevated blood pressure reading (>120/80) during this emergency department visit. Special discussion: I have referred the patient to see his PCP for further evaluation of high blood pressure. I discussed with the patient/guardian in detail that at this point there is no indication for admission to the hospital. It is understood, however, that if the symptoms persist or worsen the patient needs to return immediately for re-evaluation. 02/05 14:17 Order name: Basic Metabolic Panel; Complete Time: 18:02 02/05 14:17 Order name: CBC with Diff; Complete Time: 15:39 rn 02/05 14:17 Order name: Troponin HS; Complete Time: 18:02 rn 02/05 14:17 Order name: EKG; Complete Time: 14:18 rn 02/05 14:17 Order name: Cardiac monitoring; Complete Time: 14:51 02/05 14:17 Order name: EKG - Nurse/Tech; Complete Time: 14:51 rn 02/05 14:17 Order name: IV Saline Lock; Complete Time: 14:51 02/05 14:17 Order name: Labs collected and sent; Complete Time: 14:51 02/05 14:17 Order name: O2 Per Protocol; Complete Time: 14:51 rn 02/05 14:17 Order name: O2 Sat Monitoring; Complete Time: 14:51 rn 02/05 17:24 Order name: Labs - recollect needed: recollect green top please; Complete Time: 17:33 em1 EC:56 Rate is 53 beats/min. Rhythm is regular. QRS Loa is Normal. SD interval is normal. QRS rn interval is normal. QT interval is normal. No Q waves. T waves are Normal. No ST changes noted. Clinical impression: Sinus bradycardia. Interpreted by me. Reviewed by me. Administered Medications: No medications were administered Disposition Summary: 02/05/22 18:03 Discharge Ordered Location: Home rn Problem: new rn Symptoms: have improved rn Condition: Stable rn Diagnosis - Essential (primary) hypertension rn Followup: rn - With: Private Physician - When: As needed - Reason: Recheck today's complaints, Re-evaluation by your physician Discharge Instructions: - Discharge Summary Sheet rn - Hypertension, Adult rn - Heart Disease mergers and acquisitions attorney - Managing Your Hypertension rn Forms: - Medication Reconciliation Form rn - Thank You Letter rn - Antibiotic director learning - Prescription Opioid Use rn - Work release form ph Signatures: Dispatcher [employer] Lewis Mays MD MD rn Martinez, Eric emAlka Garcia, RN RN 5 Corrections: (The following items were deleted from the chart) 14:14 14:13 Allergies: BACiiM; 5 [facility]
--- NOTE | 2022-02-05 18:04 | ER ---
Nurse's Notes [facility] Name: Jennifer Tyler Age: 26 yrs Sex: Female : 1995 Arrival Date: 02/05/2022 Time: 14:02 Bed 28 Private MD: Brendan Tyson R Diagnosis: Essential (primary) hypertension Presentation: 02/05 14:06 Chief complaint: Patient states: was recently switched to new BP meds, feels like her [facility] bp is still high and she just isnt feeling "right"; states she feels "tense and uncomfortable". Coronavirus screen: Vaccine status: Patient reports being unvaccinated. Client denies travel out of the [place] in the last 14 days. Ebola Screen: Patient negative for fever greater than or equal to 101.5 degrees Fahrenheit, and additional compatible Ebola Virus Disease symptoms Patient denies exposure to infectious person. Patient denies travel to an Ebola-affected area in the 21 days before illness onset. Initial Sepsis Screen: Does the patient meet any 2 criteria? No. Patient's initial sepsis screen is negative. Does the patient have a suspected source of infection? No. Patient's initial sepsis screen is negative. Risk Assessment: Do you want to hurt yourself or someone else? Patient reports no desire to harm self or others. Onset of symptoms was January 2022. 14:06 Method Of Arrival: Ambulatory [facility] 14:06 Acuity: TOMÁS 3 5 Triage Assessment: 14:11 General: Appears in no apparent distress. obese, well groomed, well developed, Behavior [facility] is calm, cooperative, appropriate for age. Pain: Denies pain. 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 - Social history:: Smoking status: Patient denies any tobacco usage or history of. - Family history:: not pertinent. - Hospitalizations: : No recent hospitalization is reported. Screenin:30 Abuse screen: Denies threats or abuse. Denies injuries from another. Nutritional kb3 screening: No deficits noted. Tuberculosis screening: No symptoms or risk factors identified. Fall Risk None identified. Assessment: 14:30 General: Appears in no apparent distress. Behavior is calm, cooperative, Received care kb3 of pt from triage, AAO x4. PT reports her PCP changed her HTN medication on Wed and she "does not feel right." Denies CP, SOB. Denies fever, cough congestion.. 14:30 Pain: Denies pain. Cardiovascular: Denies chest pain, diaphoresis, nausea, kb3 palpitations, shortness of breath, vomiting, Heart tones present Capillary refill < 3 seconds Patient's skin is warm and dry. Pulses are all present. Rhythm is sinus bradycardia. Respiratory: No deficits noted. Denies cough, shortness of breath. GI: Patient currently denies abdominal pain, constipation, diarrhea, nausea, vomiting. 17:12 General: General: Green tube redrawn per lab request. kb3 Vital Signs: 14:06 BP 140 / 80; Pulse 86; Resp 18; Temp 98.8; Pulse Ox 98% ; Weight 99.79 kg; Height 4 ft. 5 10 in. (147.32 cm); Pain 0/10; 14:45 BP 126 / 86; Pulse 55; Resp 20; Pulse Ox 98% ; kb3 15:00 BP 127 / 77; Pulse 57; Resp 20; Pulse Ox 98% ; kb3 16:00 BP 128 / 84; Pulse 54; Resp 18; Pulse Ox 99% ; kb3 17:00 BP 142 / 93; Pulse 55; Resp 16; Pulse Ox 100% ; kb3 18:00 BP 128 / 78; Pulse 56; Resp 20; Pulse Ox 100% ; kb3 14:06 Body Mass Index 45.98 (99.79 kg, 147.32 cm) 5 ED Course: 14:02 Patient arrived in ED. mr 14:02 Brendan Tyson MD is Private Physician. mr 14:05 Lewis Martinez MD is Attending Physician. rn 14:11 Triage completed. 5 14:11 Arm band placed on right wrist. [facility] 14:30 Maisha Browning, RN is Primary Nurse. 3 14:30 Patient has correct armband on for positive identification. Placed in gown. Bed in low kb3 position. Call light in reach. Client placed on continuous cardiac and pulse oximetry monitoring. NIBP monitoring applied. school bus monitor on. Warm blanket given. 14:30 No provider procedures requiring assistance completed. Inserted saline lock: 20 gauge kb3 in right antecubital area, using aseptic technique. Blood collected. 16:49 Kandice Andres FNP-C is PHCP. snw 17:00 IV discontinued, intact, bleeding controlled, No redness/swelling at site. kb3 Administered Medications: No medications were administered Medication: 14:30 VIS not applicable for this client. kb3 Outcome: 18:03 Discharge ordered by . rn 18:32 Discharged to home ambulatory. kb3 18:32 Condition: good 18:32 Discharge instructions given to patient, Instructed on discharge instructions, follow up and referral plans. medication usage, Demonstrated understanding of instructions, follow-up care, medications. 18:33 Patient left the ED. kb3 Signatures: Kandice Andres FNP-C WRAP CHECKER-Csnw Carlyn Hagen Lewis Martinez MD MD rn Rees, Jessica, RN RN [email or web address] Maisha Browning, RN RN kb3 Corrections: (The following items were deleted from the chart) 14:14 14:13 Allergies: BACiiM; susana Kel 17:13 17:12 General: kb3 kb3
[2022-02-05 18:43] VITALS: TEMP 98.8
[2022-02-05 18:47] VITALS: O2SAT 100
[2022-02-05 18:48] VITALS: BP 128/78
--- NOTE | 2022-02-06 11:42 | EKG ---
Test Date: 2022-02-05 Test Time: 14:54:35 Marketing Performance Analyst: MORRO MEASUREMENT RESULTS: Intervals: Rate: 53 WA: 126 QRSD: 92 QT: 412 QTc: 386 [place]: P: 7 WA: 126 QRS: 12 T: 4 INTERPRETIVE STATEMENTS: Sinus bradycardia Cannot rule out Anterior infarct, age undetermined Abnormal ECG No previous ECG available for comparison Electronically Signed On 02-06-22 11:38:57 CDT by Gareth Still
== END 2022-02-05 18:33 | disposition home or self-care (01) ==
LOC: ER 13:58
DX: I10 Essential (primary) hypertension (principal); Z79.899 Other long term (current) drug therapy; Z88.3 Allergy status to other anti-infective agents
CPT/HCPCS: 36415; 80048; 84484; 85025; 93005; 99284

== ENCOUNTER 2022-03-05 08:57 | Day surgery (SDC) | payer BC ==
[2022-03-05 09:22] LABS: Absolute Lymphocytes (CBC) 2.3 K/uL (0.7-4.9); Hematocrit 43.3 % (36.0-45.0); Lymphocytes % 35.1 % (15.3-44.8); MCV 75.8 fL (80-100); MPV 8.5 fL (7.6-11.3); RBC Red Blood Cell Count 5.71 M/uL (3.86-4.86)
[2022-03-05] MEDS ORDERED: Ringers Lactate 1,000 ML IV ONE ×2 (09:22→13:49)
[2022-03-05] MEDS ORDERED: CEFOXITIN SODIUM 1 GM/VIAL ONE (09:22)
--- NOTE | 2022-03-05 09:23 | P.HP ---
Date of Service: 03/05/22 PC: This 26-year-old female presents for a laparoscopic cholecystectomy with intraoperative cholangiogram. HPC: Patient has been experiencing right upper quadrant abdominal pain, radiating to her back. Had an episode about 2 months ago was very severe with necessitating her going to the hospital. It resolved with conservative maddy gement. PSHx: Negative PMHx: 1 para 1 Social Hx: Allergic to sulfamethoxazole and trimethoprim Sys R: No cough, wheeze, shortness of breath. No chest pain or palpitations. Denies any urinary complaints. Has been well since her last office visit. O/E: Awake alert vital signs are stable HEENT: Not jaundiced Chest: Chest movement equal bilaterally Abd: Soft nontender Rollins: Intact Data: Has documented gallstones Impression: Chronic cholecystitis with cholelithiasis, biliary colic Plan: I will take him to the operating room for laparoscopic possible open cholecystectomy with intraoperative cholangiogram. The risks of this procedure have been discussed. The possibility of bleeding, infection, injury to bile ducts blood vessels and intestines has been described. The possible need for an open and/or further surgeries and procedures was discussed. She understands and wants us to proceed.
[2022-03-05] MEDS ORDERED: MIDAZOLAM HCL 2 MG/2 ML INJ ONE (10:27)
[2022-03-05] MEDS ORDERED: propofoL 200 MG/20 ML VIAL IV ONE (10:27)
[2022-03-05] MEDS ORDERED: FENTANYL CITR 100 MCG/2 ML ONE ×2 (10:27→11:38)
[2022-03-05] MEDS ORDERED: LIDOCAINE 2% MPF 5 ML VIAL ONE (10:28)
[2022-03-05] MEDS ORDERED: ONDANSETRON 4 MG/2 ML VIAL ONE ×3 (10:28→13:23)
[2022-03-05] MEDS ORDERED: ROCURONIUM 50 MG/5 ML VIAL IV ONE (10:28)
[2022-03-05] MEDS ORDERED: CELECOXIB 100 MG CAPSULE ONE (10:57)
[2022-03-05] MEDS ORDERED: ACETAMINOPHEN 500 MG TAB ONE (10:57)
[2022-03-05] MEDS ORDERED: GLYCOPYRROLATE 0.2 MG/ML SYR ONE ×2 (11:38→11:49)
[2022-03-05] MEDS ORDERED: KETOROLAC 30 MG/ML INJ ONE (11:48)
[2022-03-05] MEDS ORDERED: NEOSTIGMINE 1 MG/ML -5 ML ONE (11:49)
--- NOTE | 2022-03-05 12:25 | P.OP ---
Preoperative diagnosis: Acute on chronic cholecystitis with cholelithiasis, biliary colic Postoperative diagnosis: The same Primary procedure: Laparoscopic cholecystectomy Secondary procedure: Cholangiogram Anesthesia: General Estimated blood loss: Less than 10 cc Specimen: 1 gallbladder and contents Operative Technique: The patient brought the operating room and placed supine on the table. After the induction of adequate general endotracheal anesthesia, there the abdomen was prepped with a DuraPrep solution, and she was draped in usual aseptic manner. A subumbilical incision was made. This was brought down through the skin and subcutaneous tissue. The Visiport was now used to enter the peritoneal cavity and created pneumoperitoneum to approximately 12 mmHg. Under direct vision a 5 mm trochars placed in the upper midline achieve 5 mm trochars on the right lateral side of the abdomen. The patient was now placed in reverse Trendelenburg. The table was turned to the left. We could visualize the right upper quadrant A distended gallbladder was noted. A grasper was placed on the fundus and another by Gibson's pouch. Applying lateral traction we were able to dissect out and expose both the cystic duct and artery. Attention was turned towards the cystic duct. A clip was placed between the gallbladder and the cystic duct. An opening was made into the cystic duct through which we obtained a normal intraoperative cholangiogram the cholangiocatheter was now removed. Clips were placed on the distal portion of the cystic duct. The cystic artery was clipped and divided in the usual manner as well. At this point the gallbladder was dissected free of the liver bed, placed into an Endo Catch, and brought out through the umbilical trocar site at this point the abdomen was inspected to ensure adequate hemostasis. Attention was turned towards the umbilicus. The fascial defect was approximated using the Endo Close and an absorbable suture. At this point the pneumoperitoneum was collapsed, the sutures tied, and bailey applied to the skin. At the end of the procedure she was in a stable condition was sent to the recovery room. Needle sponge instrument count were correct. No drains were placed. Transferred to: Recovery Room Condition: Good
[2022-03-05] MEDS: HYDROMORPHONE HCL 1 MG/ML INJ ONE ×2 (12:35→12:40)
--- NOTE | 2022-03-05 13:02 | RAD REPORT ---
EXAM DESCRIPTION: RAD - Cholangiogram Oper-Xray Or - 03/05/2022 12:40 pm CLINICAL HISTORY: LAP CITLALY W/IOC COMPARISON: Abdomen Exam Limited dated 11/16/2021 FINDINGS/IMPRESSION: A total of 5 still images/cine sequences were submitted showing an intraoperative cholangiogram. Fill ing defect in the hepatic duct may represent a gas bubble. This is not seen on the first injection. Cumulative dose: 17.2 mGy Fluoro time: 0.3 minutes
[2022-03-05 13:10] VITALS: BP 167/89; TEMP 98.1; O2SAT 98
[2022-03-05] MEDS ORDERED: HYDROCODONE/APAP 10/325 TAB ONE (14:06)
== END 2022-03-05 15:58 | disposition home or self-care (01) ==
LOC: OR 08:57
PROVIDERS: ATTEND Surgery
PROC: BF532Z0 Other Imaging of Gallbladder and Bile Ducts using Fluorescing Agent, Intraoperative (ICD-10-PCS; 2022-03-05)
PROC: 0FT44ZZ Resection of Gallbladder, Percutaneous Endoscopic Approach (ICD-10-PCS; principal; 2022-03-05 11:00)
DX: K80.10 Calculus of gallbladder with chronic cholecystitis without obstruction (principal); Z88.1 Allergy status to other antibiotic agents
CPT/HCPCS: 85025; 36415; 81025; 88304; 74300; 47563; J2704; J2001; J2250; J3010 ×2; J1170; J2710; J7120 ×2; J0694; J2405 ×3

== ENCOUNTER 2022-03-05 23:31 | Observation (INO) | payer BC ==
--- OUTSIDE RECORDS SUMMARY | 2022-03-05 23:35 | XMS REPORT | Continuity of Care Document ---
:1995 Author Organization [facility] t Address [address] [place] [address] Care Team Providers Name Role Phone PCP, PATIENT DOES NOT HAVE A Primary Care Physician Unavaila Laura Vicente Attending Clinician Unavailable Caren Henson Attending Clinician Unavailable SOHAIL CHRISTIANSEN Attending Clinician Unavailable Ebrahimakayla MOVERSohail Attending Clinician Ash MOVERNneka Figueroa Attending Clinician NNEKA HINOJOSA Attending Clinician Unavailable Anaid Gaston RN Attending Clinician Unavailable RITA RICHARDSON Attending Clinician Unavailable Rita Richardson MD Attending Clinician Shanelle Jones Attending Clinician Doctor Unassigned, [place] Attending Clinician Unavailable Lab, Adc Fam Pob I Attending Clinician Unavailable Libby Walton Attending Clinician Sadie Love Attending Clinician SADIE APONTE Attending Clinician Unavailable Laura Barnes Admitting Clinician Unavailable Payers Payer Name Policy Type Policy Number Effective Date Expiration Date S jennifer [facility] [id number] 2019 00:00:00 Problems Condition Condition Condition Status Onset Resolution Last Treating Co mments Source Name Details Category Date Date Treatment Clinician Date No known No known Disease Unive rs active active ity of problems problems [facility] Allergies, Adverse Reactions, Alerts Allergy Allergy Status Severity Reaction(s) Onset Inactive Treating Comm ents Source Name Type Date Date Clinician No Known DA Active U 2020-04 [facility] 00 [facility] No Known DA Active U [facility] All[facility]ie 11-27 [place] [facility] 00:[facility]: [facility] 00 [facility] [place] No Known DA Active U [facility] Allergie 11-27 [place] s 00:00: [facility] 00 [facility] NO KNOWN Drug Active Univers ALLERGIE Class ity of S [facility] Social History Social Habit Start Date Stop Date Quantity Comments Source Exposure to 2021-11-30 2021-12-10 Not sure [facility] [place]-CoV-2 00:00:00 16:20:00 [facility] (event) [place] Tobacco use and 2021-10-08 2021-10-08 Smokeless tobacco Un iversity of exposure 00:00:00 00:00:00 non-user [facility] Sex Assigned At [birth year] Universit y of 00:00:00 00:00:00 [facility] Smoking Status Start Date Stop Date Source Never smoked tobacco [facility] Medications Ordered Filled Start Stop Current Ordering Indication Dosage Frequency Signature Comments Components Source Medication Medication Date Date Medication? Clinician (SIG) Name Name methocarbam 2021- Yes [id number] 750mg Take 1 Univers oL 12-10 tablet by ity of (ROBAXIN-75 00:00: 04:59 mouth 4 [place] 0[place] 750 mg 00 :00 (four) Medical tablet times Branch daily for 10 days. triamcinolo 2021- No [id number] 40mg Univers ne 11-16 ity of acetonide 23:15: 22:15 [place] (KENALOG) 00 :00 Medical injection Branch 40 mg triamcinolo 2021- No [id number] 40mg 40 mg, Univers ne 11-16 Intramuscu ity of acetonide 23:15: 22:15 lar, ONCE, [place] (KENALOG) 00 :00 1 dose, On Medi kai injection Sun Branch 40 mg 11/16/21 at 1815, Routine methylPREDN 2022-0 Yes [id number] Take by Univers ISolone 7-24 mouth ity of (MEDROL, 00:00: SEE-INSTRU Ashok as MARIO,) 4 mg 00 CTIONS. Medica l tablets follow Branch package directions hydrOXYzine 2022-0 Yes [id number] 25mg Take 1 Univers 25 mg 7-24 tablet by ity of tablet 00:00: mouth [place] 00 every 6 Medical (six) Branch hours as needed for Itching. methylPREDN 2022-0 Yes [id number] Take by Univers ISolone 7-24 mouth ity of (MEDROL, 00:00: SEE-INSTRU Ashok as MARIO,) 4 mg 00 CTIONS. Medica l tablets follow Branch package directions hydrOXYzine 2-0 Yes [id number] 25mg Take 1 Univers 25 mg 7-24 tablet by ity of tablet 00:00: mouth [place] 00 every 6 Medical (six) Branch hours as needed for Itching. guaiFENesin 2-0 Yes [id number] 400mg Take 1 Univers 400 mg 6-15 tablet by ity of tablet 00:00: mouth [place] 00 every 4 Medical (four) Branch hours as needed for Cough. benzonatate 2022-0 Yes [id number] 200mg Take 2 Univers 100 mg 6-15 capsules ity of capsule 00:00: by mouth [place] 00 every 8 Medical (eight) Branch hours as needed for Cough. fluticasone 2-0 Yes [id number] 1{spray Use 1 Univers propionate 6-15 } [place] in ity o f 50 00:00: each [place] mcg/actuati 00 nostril Medic al on nasal daily. Branch spray guaiFENesin 2-0 Yes [id number] 400mg Take 1 Univers 400 mg 6-15 tablet by ity of tablet 00:00: mouth [place] 00 every 4 Medical (four) Branch hours as needed for Cough. benzonatate 2022-0 Yes [id number] 200mg Take 2 Univers 100 mg 6-15 capsules ity of capsule 00:00: by mouth [place] 00 every 8 Medical (eight) Branch hours as needed for Cough. fluticasone 2022-0 Yes [id number] 1{spray Use 1 Univers propionate 6-15 } [place] in ity o f 50 00:00: each [...] mouth [place] tablet 00 every Medical morning. [place] Vital Signs Vital Name Observation Time Observation Value Comments Source Systolic blood 2021-12-10 21:28:00 133 mm[Hg] [facility] [place] [facility] sity [facility] Diastolic blood 2021-12-10 21:28:00 85 mm[Hg] [facility] Body temperature 2021-12-10 21:26:00 36.67 Chyna [facility] Respiratory rate 2021-12-10 21:26:00 16 /min [facility] Body height 2021-12-10 21:26:00 147.3 cm [facility] Body weight 2021-12-10 21:26:00 101.47 kg [facility] BMI 2021-12-10 21:26:00 46.75 kg/m2 [facility] Oxygen saturation in 2021-12-10 21:26:00 99 /min University Arterial blood by [facility] Pulse oximetry Branch Heart rate 2021-12-10 21:26:00 58 /min [facility] BMI 2021-11-16 21:41:00 45.98 kg/m2 [facility] Oxygen saturation in 2021-11-16 21:41:00 99 /min [facility] Arterial blood by [facility] Pulse oximetry Branch Systolic blood 2021-11-16 21:41:00 127 mm[Hg] Univer sity of pressure [facility] Diastolic blood 2021-11-16 21:41:00 79 mm[Hg] Unive rsity of pressure [facility] Heart rate 2021-11-16 21:41:00 79 /min [facility] Body temperature 2021-11-16 21:41:00 37.11 Chyna [facility] Respiratory rate 2021-11-16 21:41:00 18 /min Univ [facility] Body height 2021-11-16 21:41:00 147.3 cm [facility] Body weight 2021-11-16 21:41:00 99.791 kg [facility] Procedures Procedure Date / Time Performed Performing Clinician Carlos Eduardo doe [id number] 2021-03-19 00:00:00 DRYDA [facility] Encounters Start End Encounter Admission Attending Care Care Encounter Source Date/Time Date/Time Type Type Clinicians Facility Department ID 2021-07-08 [facility] [id number] Common 15:32:03 [facility] 2021-04-04 Inpatient DONALD Amato LD [id number] [facility] 16:23:00 Laura Guevara [facility] [place] [facility] 2019-12-01 Inpatient MITCHEL Henson [facility] [id number] [facility] 07:30:00 Caren Laguna [facility] 2021-12-10 2021-12-10 Outpatient EMERY OLIVER NMNEIL [id number] Univers 16:20:00 16:33:41 SOHAIL lobato [facility] 2021-12-10 2021-12-10 Urgent Raysa NMNEIL [id number] Univers 16:20:00 16:33:41 Care Rania HEALTH [id number] it y of [place] 4.2.7.2.686 Ashok as SOHAIL?BLEA [phone] [address] MEDICAL OFFICE [facility] 2021-11-16 2021-11-16 [facility] [id number] Univers 16:40:00 17:00:00 Care Nneka HEALTH [id number] it y of [place] 4.2.7.2.686 Ashok as SOHAIL?BLEA [phone] [address] OFFICE [facility] 2021-11-16 2021-11-16 [facility] [id number] Univers 16:40:00 16:40:00 NNEKA ity of [facility] 2021-10-09 2021-10-09 Telephone RADHA Gaston [id number] Univers 00:00:00 00:00:00 Anaid RHONDA 350.1.13.10 it y of HOSPITAL 4.2.7.2.686 Ashok as [phone] [address] 2021-10-08 2021-10-08 Outpatient R CAROLE [facility] [id number] Univers 17:00:00 17:19:07 RITA ity [facility] 2021-10-08 2021-10-[address] [facility] [id number] Univers 17:00:00 17:19:07 Care Farhad, Shanelle HEALTH [id number] ity of [place] 4.2.7.2.686 Ashok as SOHAIL?BLEA [phone] [address] MEDICAL OFFICE [facility] 2021-10-08 2021-10-08 Orders Doctor GARCIA [id number] Univers 00:00:00 00:00:00 Only Unassigned, RHONDA 350.1.13.10 ity of [place] [facility] 4.2.7.2.686 Ashok as [id number] [address] 2021-03-26 2021-03-28 Inpatient EM Molly, [facility] MEDI.01 [id number] [facility] 20:03:00 18:35:00 Damla [facility] [place] 2021-03-18 2021-03-22 Inpatient EM Molly [facility] OBPP [id number] [facility] 06:52:00 14:43:00 Damla [facility] [place] 2021-03-11 2021-03-11 Emergency EM Molly, [facility] JESUS [id number] [facility] 09:37:00 11:37:00 Damnd 49 [facility] [place] 2020-05-16 2020-05-16 Outpatient R [facility] [id number] Univers 15:40:00 15:40:00 ity [facility] 2020-05-16 2020-05-16 Laboratory Lab, [facility] Fam Pob I [facility] 1.2. 840.114 [id number] Univers 15:38:01 15:38:19 Only Libby [facility] 4.2.7.2.686 Ashok as Professio [phone] N[place] dical nal [address] [place] [address] 2020-01-10 2020-01-10 Outpatient R [facility] [id number] Univers 08:00:00 08:00:00 [facility] 2020-01-09 2020-01-09 Laboratory Lab, [facility] Fam Pob I [facility] 1.2. 840.114 [id number] Univers 16:51:12 17:11:12 Only Nneka Hinojosa [employer] [facility].1.13.10 [facility] 4.2.7.2.686 Ashok as Professio [phone] Nc dical nal [address] [place] [address] 2020-01-09 2020-01-09 Outpatient R [facility] [id number] Univers 17:00:00 17:00:00 [facility]NEKA [facility] 2019-12-14 2019-12-14 Laboratory Lab, [facility] Fam Pob I [facility] 1.2. 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 2021-03-28 14:55:00 Test Item Value Reference Range Interpretation Comme nts CYTOLOGY RUN NON STEAM TANK OPERATOR DATE: 03/28/21 [facility] PAGE 1 RUN TIME: 1455 Specimen Inquiry RUN USER: INTERFACE (test ADRIEN code = NT: SANDRA SILVER LOC: [facility] U #: [id number] AGE/SX: 25/ ROOM: [facility]2700 RE03/26/21REG DR: Laura Barnes MD : [birth year] BED: A DIS: STATUS: ADM Tasha TLOC: SPEC #: [id number] RECD: STATUS: JENNIFER WILLIAMSON #: [id number] CLAUDIA: 03/27/21- SUBM DR: Laura Barnes MD ENTERED: 1 05/28/20 SP TYPE: CYTO NGYN OTHR DR: DOES_NOT KNOW ORDERED: ANATOMIC SPEC, SPEC TRACK, 5 9480, 89296 COPIES TO: DOES_NOT KNOW Laura Barnes MD 0103 [facility] [address] [place] [id number] PROCEDURES: [id number] (03/27/21- 1250) 39339 (03/28/21-1444) TISSUES: A. PELVIC FLUID WASHING (CYTOSPIN,CELL [...] scous fluid. The specimen will besent to [employer] for cytospin and cell block. Technical com ponent performed at [employer],[place] [address], [place] [address] Unless gross only, the diagn osis is [...] Specimen Inquiry RUN USER: INTERFACE SPEC #: [id number] PATIENT: SANDRA SILVER #[id number] (Continued) ------ CLINICAL INFORMATION PELVIC ABSCESS C SECTION -- Signed Dain Frias 03/28/21 1455 END OF REPORT CBC W/MANUAL [id number] 10:44:00 Test Item Value Reference Range Interpretation [...] (test code = NORMAL NORMAL PLTMORPH) - [place] PERC [id number] 00:00:00 [facility] : 1995 Sex: F Patient Name: SANDRA SILVER Unit No: [id number] EXAMS: CPT CODE: [id number] CT PERC DRAIN 33577 Radiation Dose CTDIVOL = 43.3 (mGy): DLP [...] rectus sheath collection. Grossly infected foul-smelling [facility] NAME: NADEEMSANDRAOSCAR RAMOS Radiology Department PHYS: Mireya Monk [address] : 1995 AGE: 25 SEX: F [place], [place] [address] LOC: F.2600 A PHONE #: [phone] EXAM DATE: 03/27/2021 STATUS: ADM IN FAX #: [phone] RAD NO: Page 1 Signed Report 1 Patient Name: SANDRA SILVER Unit No: [id number] EXAMS: CPT CODE: [id number] CT PERC DRAIN 56209 <Continued> hemorrhagic material was aspirated. A superstiff guidewire was introduced. The tract was dilated to 12 Stateless. A 12 Stateless self- retaining pigtail drainage catheter was introduced. [...] introduced. The tract was dilated to 8 Stateless. A self-retaining 8 Stateless pigtail drainage c atheter was introduced and [...] 43.30 DLP: 2485.87 Trnscrbd D/ (1300) GCD.CPS [facility] [place] NAME: SILVERSANDRA Radiology Department PHYS: Mireya Monk [address] : 1995 AGE: 25 SEX: F [place] [address] LOC: F.2600 A PHONE #: [phone] EXAM DATE: 03/27/2021 STATUS: ADM IN FAX #: [phone] RAD NO: Page 2 Signed Report 1 Patient Name: SANDRA SILVER RACHEL Unit No: [id number] EXAMS: CPT CODE: [id number] CT PERC DRAIN 70827 <Continued> Orig Print D/T: S: 03/27/2021 (1301) [facility] [place] NAME: SILVEROMAR MartinSANDRAOSCAR RAMOS Radiology Department PHYS: Mireya Monk [address] : 1995 AGE: 25 SEX: F [place] [address] LOC: Joanne A PHONE #: [phone] EXAM DATE: 03/27/2021 STATUS: ADM IN FAX #: [phone] RAD NO: Page 3 Signed Report 1PROTHROMBIN [id number] 21:02:00 Test Item Value Reference Range Interpretation Comments PROTHROMBIN TIME PATIENT (test code 11.8 secs 10.1-12.3 N = PTP) THROMBOPLASTIN TIME [id number] 21:02:00 Test Item Value Reference Range Interpretation Comments THROMBOPLASTIN TIME PARTIAL (test 32.5 secs 22-38 N code = PTT) UA RFLX MICR CULT IF [id number] 19:00:00 Test Item Value Reference Range Interpretation [...] CATCHSpecimen Comment: CLEAN CATCHCOVID 19 Asymptomatic IH [id number] 16:50:00 Test Item Value Reference Range Interpretation [...] and/o r diagnosis of [place] VID-19 under Jtgwqcz85 4(b)(1) of the Act, 21 U.S .C. 360bbb-3(b)(1), unless theauthorizatio n is terminated or r evoked sooner. CBC W/AUTO [id number] 16:13:00 Test Item Value Reference Range Interpretation [...] NORMAL NORMAL code = PLTMR) COMPREHENSIVE METABOLIC [id number] 16:09:00 Test Item Value Reference Range Interpretation [...] units/L 46-116 H code = ALKP) LIVER [id number] 16:09:00 Test Item Value Reference Range Interpretation Comments BILIRUBIN DIRECT (test code = BILD) 0.1 mg/dL <0.2 N [id number] 16:09:00 Test Item Value Reference Range Interpretation Comments LIPASE (test code = LIP) 125 units/L 73-393 N LACTIC [id number] 16:09:00 Test Item Value Reference Range Interpretation Comments LACTIC ACID (test code = LACT) 1.2 MMOL/L 0.5-2.2 N - CT ABD PELVIS [id number] 00:00:00 [facility] : 1995 Sex: F Patient Name: SANDRA SILVER Unit No: [id number] EXAMS: CPT CODE: [id number] CT ABD PELVIS W/CONT 14622 Radiation Dose CTDIVOL = 20.68 (mGy): DLP [...] bowel dilatation is present to suggest [facility] NAME: SANDRA SILVER Radiology Department PHYS: Indira Foster MD [address] : 1995 AGE: 25 SEX: F [place], [place] [address] LOC: [place]EWART PHONE #: [phone] EXAM DATE: 03/26/2021 STATUS: REG ER FAX #: [phone] RAD NO: Page 1 Signed Report 1 Patient Name: NADEEMSANDRAOSCAR RAMOS Unit No: [id number] EXAMS: CPT CODE: [id number] CT ABD PELVIS W/CONT 48809 <Continued> acute obstruction. The appendix is i [...] and signed by: Miguel Desai MD [facility] NAME: SANRDA SILVER Radiology Department PHYS: Indira Foster MD [address] : 1995 AGE: 25 SEX: F [place], [place] [address] LOC: F.ERS PHONE #: [phone] EXAM DATE: 03/26/2021 STATUS: REG ER FAX #: [phone] RAD NO: Page 2 Signed Report 1 Patient Name: SILVEROMAR MartinSANRDAOSCAR RAMOS Unit No: [id number] EXAMS: CPT CODE: [id number] CT ABD PELVIS W/CONT 63778 & lt;Continued> CC: Laura Arias; Indira Doty MD Technologist: RT Reg CTDI: DLP: Trnscrbd D/ (1804) GCD.CPS [facility] NAME: SANDRA SILVER Radiology Department PHYS: Indira Foster MD [address] : 1995 AGE: 25SEX: F [place], [place] [address] LOC: F.ERS PHONE #: [phone] EXAM DATE: 03/26/2021 STATUS: REG ER FAX #: [phone] RAD NO: Page 3 Signed Report 1 Patient Name: MAYCOL SILVER Unit No: [id number] EXAMS: CPT CODE: [id number] CT ABD PELVIS W/CONT 04829 <Continued> Orig Print D/T: S: 03/26/2021 (1805) [facility] NAME: SILVER,SANDRA RAMOS Radiology Department PHYS: Indira Foster MD [address] : 1995 AGE: 25 SEX: F [place], [place] [address] LOC: Darryl.ERS PHONE #: [phone] EXAM DATE: 03/26/2021 STATUS: REG ER FAX #: [phone] RAD NO: Page 4 Signed Report 1- XR CHEST 1 [id number] 00:00:00 [facility] : 1995 Sex: F Patient Name: SANDRA SILVER Unit No: [id number] EXAMS: CPT CODE: [id number] XR CHEST 1 V 84657 PROCEDURE INFORMATION: Exam: XR Chest Exam date [...] Orig Print D/T: S: 03/26/2021 (1601) [facility] NAME: SANDRA SILVER Radiology Department PHYS: Tiana Foster MD [address] : 1995 AGE: 25 SEX: F [place], [place] [address] LOC: [place] PHONE #: [phone] EXAM DATE: 03/26/2021 STATUS: REG ER FAX #: [phone] RAD NO: Page 1 Signed [id number] 12:37:00 Test Item Value Reference Range Interpretation Comments SURGICAL (test code = SR) R UN DATE: 03/25/21 [facility] PAGE 1 RUN TIME: 1237 Specimen Inquiry RUN USER: INTERFACE P ATIENT: SANDRA SILVER [facility] #: [id number] LOC: AALIYAH U #: [id number] AGE/SX: ROOM: [facility] RE03/18/21REG DR: Laura Barnes MD : [birth year] BED: A DIS: 03/22/21 STATUS: DIS IN TLOC: SPEC #: [id number] RECD: 03/21/21 STATUS: JENNIFER [facility] #: [id number] CLAUDIA: 03/18/21- SUBM DR: Laura Barnes MD ENTERED: 03/21/21 SP TYPE: SURGICAL OTHR DR: ORDERED: ANATOMIC SPEC, SPEC TRACK, [id number] PROCEDURES: [id number] (03/21/21) TISSUES: A. PLACENTA, THIRD TRIMESTER (28 [...] red cut surface with no gross lesion. Computational Chemist sections aresubmitted as follows: A1: Membrane roll and cordA2: Full thickness placental discA3: Full thickness placental disc at edge LC Technical component performed at [employer],[place] [address], [place] [address] MICROSCOPIC DESCRIPTION Technical component performed at [facility],[place] [address], [place] [address] Unless gross only, the diagnosis is based [...] Inquiry RUN USER: INTERFACE S PEC #: [id number] PATIENT: SANDRA SILVER #[id number] (Continued) CLINICAL INFORMATION ON MAG -- Signed SIGNATURE ON Amado Piedra 03/25/21 1237 END OF REPORT COMPREHENSIVE METABOLIC [id number] 08:14:00 Test Item Value Reference Range Interpretation [...] 46-116 N code = ALKP) CBC W/AUTO [id number] 07:41:00 Test Item Value Reference Range Interpretation [...] NORMAL NORMAL code = PLTMR) CAPILLARY BLOOD [id number] 12:19:00 Test Item Value Reference Range Interpretation [...] 21.0 % code = FIO2C) CAPILLARY BLOOD [id number] 12:18:00 Test Item Value Reference Range Interpretation [...] FIO2 (test 21.0 % code = FIO2C) [id number] 02:35:00 Test Item Value Reference Range Interpretation Comments MAGNESIUM (test code = 5.4 mg/dL 1.8-2.4 HH RESUL TS CALLED TO MAG) DELIA ArroyoREAD BACK & CONFIRME D? YES.BY [id number] 03/19/21 0234.R esults verified by rep eat analysis AG HEPATITIS B [id number] 02:42:00 Test Item Value Reference Range Interpretation Comments AG HEPATITIS B SURFACE (test code NONREACTIVE NONREACTIVE = HBSAG) AB HEPATITIS C [id number] 02:42:00 Test Item Value Reference Range Interpretation Comments AB HEPATITIS C (test code = NONREACTIVE NONREACTIVE HCVAB) SIGNAL TO CUTOFF (test code = <0.02 <0.80 N CUTOFF) AB [id number] 02:42:00 Test Item Value Reference Range Interpretation Comments AB TREPONEMA (test code = TREPAB) NONREACTIVE NONREACTIVE AB HIV 1 02:42:00 Test Item Value Reference Range Interpretation Comments AB HIV 1 2 (test NONREACTIVE NONREACTIVE Done by [facility] code = [id number]) 4th Gen HIV Ag/Ab Combo Screen CBC W/AUTO [id number] 01:33:00 Test Item Value Reference Range Interpretation [...] code = PLTMR) COVID 19 Asymptomatic IH [id number] 01:16:00 Test Item Value Reference Range Interpretation [...] and/o r diagnosis of [place] VID-19 under Xklloyi87 4(b)(1) of the Act, 21 U.S .C. 360bbb-3(b)(1), unless theauthorizatio n is terminated or r evoked sooner. [facility] [id number] 00:58:00 Test Item Value Reference Range Interpretation Comments CREATININE (test code = 0.5 mg/dL 0.5-1.0 N CREAT) SGOT/AST (test code = 64 units/L 15-37 H SPECIM EN HEMOLYZED AST) SGPT/ALT (test code = 21 units/L 12-78 N SPECIM EN HEMOLYZED ALT) LACTIC 554 units/L 81-234 H SPECIMEN HEMOLY ZED DEHYDROGENASE(LDH) (test code = LDH) : *UR PROTEIN/CREATININE [id number] 00:39:00 Test Item Value Reference Range Interpretation Comments UR PROTEIN RANDOM (test code = 8.9 mg/dL PROTU) UR CREATININE RANDOM (test 12.1 mg/dL code = CREATU) PROTEIN/CREATININE RATIO (test 735.5 mg/gcrea <200 H code = P/CRATIO) COMPREHENSIVE METABOLIC [id number] 10:27:00 Test Item Value Reference Range Interpretation [...] 46-116 H code = ALKP) UR PROTEIN/CREATININE [id number] 10:22:00 Test Item Value Reference Range Interpretation Comments UR PROTEIN RANDOM (test code = 21.3 mg/dL PROTU) UR CREATININE RANDOM (test 85.2 mg/dL code = CREATU) PROTEIN/CREATININE RATIO (test 250.0 mg/gcrea <200 H code = P/CRATIO) CBC W/AUTO [id number] 10:05:00 Test Item Value Reference Range Interpretation [...] code = PLTMR) COVID 19 Asymptomatic IH [id number] 16:21:00 Test Item Value Reference Range Interpretation Comments COVID 19 Asymptomatic Test not NEGATIVE SEE LA BCORP IH AG (test code = performed RESULT.DU PLICATE COVNONPUIAG) REQUEST.Previou s ly reported result: NEGATIV E Edited by: CHERRI on 20:1621 Novel Coronavirus [id number] 16:19:00 Test Item Value Reference Range Interpretation Comments Novel Coronavirus Not Detected NEGATIVE Positive r esults are 2019 Inhouse indicative of t he (test code = presence ofSARS -CoV-2 BFVAL74YK) RNA, clinical c orrelation with patient hi [...] personneltraine d in the procedures for the salgomed M2000 molecular diagnostic SARS-CoV-2 assa y in vitro. COVID 19 Asymptomatic IH [id number] 06:43:00 Test Item Value Reference Range Interpretation Comments COVID 19 Asymptomatic IH AG (test NEGATIVE NEGATIVE code = COVNONPUIAG) UR HCG [id number] 17:15:00 Test Item Value Reference Range Interpretation Comments UR HCG QUAL (test code = HCGQLU) NEGATIVE NEGATIVE
[2022-03-06] MEDS ORDERED: NA CHLORIDE 0.9% 1,000 ML ONE (00:14)
[2022-03-06] MEDS ORDERED: MORPHINE 4 MG/ML SYR ONE (00:14)
[2022-03-06] MEDS ORDERED: ONDANSETRON 4 MG/2 ML VIAL ONE (00:14)
[2022-03-06] MEDS ORDERED: FAMOTIDINE 20 MG/2 ML VIAL IV ONE (00:17)
[2022-03-06 00:38] LABS: Absolute Lymphocytes (CBC) 1.2 K/uL (0.7-4.9); Hematocrit 40.7 % (36.0-45.0); Lymphocytes % 10.4 % (15.3-44.8); MCV 75.4 fL (80-100); MPV 8.4 fL (7.6-11.3)
[2022-03-06 01:03] LABS: Albumin 3.5 g/dL (3.4-5.0); Bilirubin Total 0.8 mg/dL (0.2-1.0); Protein, Total 7.2 g/dL (6.4-8.2)
[2022-03-06 01:04] LABS: Potassium 2.8 mmol/L (3.5-5.1)
[2022-03-06] MEDS ORDERED: KCL 20 MEQ/100 mL IVPB 100 ML IV ONE (01:19)
[2022-03-06] MEDS ORDERED: NS KCL 20MEQ 1,000 ML IV ONE (01:19)
--- NOTE | 2022-03-06 02:07 | ER ---
Nurse's Notes [facility] Name: Jennifer Tyler Age: 26 yrs Sex: Female : 1995 Arrival Date: 03/05/2022 Time: 23:34 Bed 14 Private MD: Diagnosis: Epigastric abdominal tenderness-sp cholecystectomy;Vomiting;Hypokalemia Presentation: 03/05 23:41 Chief complaint: Patient states: Pt reports having her gallbladder removed today, D/C kb3 at 1600, began vomiting shortly after. Spoke with Dr Melgar who called in [facility]. Pt reports she continues vomiting. Coronavirus screen: Vaccine status: Patient reports receiving the 2nd dose of the covid vaccine. Client denies travel out of the [place] in the last 14 days. Ebola Screen: Patient negative for fever greater than or equal to 101.5 degrees Fahrenheit, and additional compatible Ebola Virus Disease symptoms Patient denies exposure to infectious person. Patient denies travel to an Ebola-affected area in the 21 days before illness onset. Initial Sepsis Screen: Does the patient meet any 2 criteria? No. Patient's initial sepsis screen is negative. Does the patient have a suspected source of infection? No. Patient's initial sepsis screen is negative. Risk Assessment: Do you want to hurt yourself or someone else? Patient reports no desire to harm self or others. Onset of symptoms was March 05, 2022 at 16:00. 23:41 Method Of Arrival: Ambulatory kb3 23:41 Acuity: TOMÁS 3 kb3 Triage Assessment: 23:43 General: Appears in no apparent distress. uncomfortable, Behavior is calm, cooperative. kb3 Pain: Complains of pain in abdomen Pain does not radiate. Pain currently is 10 out of 10 on a pain scale. Quality of pain is described as sharp. GI: Reports upper abdominal pain, vomiting. 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 - Social history:: Smoking status: Patient denies any tobacco usage or history of. Screenin/11 00:10 Abuse screen: Denies threats or abuse. Denies injuries from another. Nutritional aa9 screening: No deficits noted. Tuberculosis screening: No symptoms or risk factors identified. Fall Risk None identified. Assessment: 00:09 General: Appears uncomfortable, obese, Behavior is cooperative, appropriate for age, aa9 anxious. Pain: Complains of pain in abdomen Noted to be grimacing, moaning. Neuro: Level of Consciousness is awake, alert, obeys commands, Oriented to person, place, time, situation. Cardiovascular: Patient's skin is warm and dry. Respiratory: Airway is patent Trachea midline Respiratory effort is even, unlabored. GI: Reports nausea, vomiting. : No signs and/or symptoms were reported regarding the genitourinary system. EENT: No signs and/or symptoms were reported regarding the EENT system. Derm: Skin is intact, is healthy with good turgor. Musculoskeletal: No signs and/or symptoms reported regarding the musculoskeletal system. 00:52 Reassessment: Patient appears in no apparent distress at this time. pt supine in bed, aa9 eyes closed, brething equal and regular. Respiratory: Airway is patent Respiratory effort is even, unlabored. 02:36 Reassessment: Patient appears in no apparent distress at this time. General: Appears aa9 comfortable, Behavior is calm, cooperative, appropriate for age. Neuro: Level of Consciousness is awake, alert, obeys commands, Oriented to person, place, time, situation. Respiratory: Airway is patent Respiratory effort is even, unlabored. 02:41 Reassessment: Guille Tyler. aa9 Vital Signs: 03/05 23:41 BP 128 / 79; Pulse 73; Resp 20; Temp 98; Pulse Ox 98% ; Weight 99.79 kg; Height 4 ft. kb3 10 in. (147.32 cm); Pain 02/02; 03/06 00:05 BP 151 / 87; Pulse 58; Resp 18 S; Pulse Ox 98% on R/A; aa9 00:45 BP 134 / 80; Pulse 52; Resp 18 S; Pulse Ox 97% on R/A; aa9 01:00 BP 126 / 81; Pulse 51; Resp 16 S; Pulse Ox 98% on R/A; aa9 01:52 BP 132 / 80; Pulse 58; Resp 17 S; Pulse Ox 96% on R/A; aa9 02:15 BP 134 / 91; Pulse 59; Resp 17 S; Pulse Ox 100% on R/A; aa9 03/05 23:41 Body Mass Index 45.98 (99.79 kg, 147.32 cm) kb3 ED Course: 03/05 23:34 Patient arrived in ED. ja2 23:43 Triage completed. kb3 23:43 Arm band placed on left wrist. kb3 03/06 00:06 Radha Andrews, ELIE is Primary Nurse. aa9 00:08 Mello Jimenez MD is Attending Physician. kong 00:11 Patient has correct armband on for positive identification. Placed in gown. Bed in low aa9 position. Call light in reach. Side rails up X2. 00:30 CBC with Diff Sent. aa9 00:30 CMP Sent. aa9 00:30 Lipase Sent. aa9 00:46 Chest Single View XRAY In Process Unspecified. EDMS 01:37 CT Abd/Pelvis - IV Contrast Only In Process Unspecified. EDMS 02:05 Dewey Melgar MD is Hospitalizing Provider. kong 02:37 No provider procedures requiring assistance completed. Patient admitted, IV remains in aa9 place. 02:55 SARS RAPID Sent. aa9 05:36 Urine --Ancillary (enter results) Sent. aa9 07:49 Report given to ELIE Gomes. ko1 Administered Medications: 00:31 Drug: NS 0.9% 1000 ml Route: IV; Rate: 1 bolus; Site: right antecubital; aa9 02:43 Follow up: Response: No adverse reaction; IV Status: Completed infusion; IV Intake: aa9 1000ml 00:31 Drug: Pepcid (famotidine) 20 mg Route: IVP; Site: right antecubital; aa9 00:41 Follow up: Response: No adverse reaction aa9 00:31 Drug: Zofran (Ondansetron) 4 mg Route: IVP; Site: right antecubital; aa9 00:41 Follow up: Response: No adverse reaction aa9 00:31 Drug: morphine 4 mg Route: IVP; Infused Over: 4 mins; Site: right antecubital; aa9 00:41 Follow up: Response: No adverse reaction aa9 01:54 Drug: Potassium Chloride 20 mEq Route: IV; Rate: per protocol; Site: right antecubital; aa9 05:36 Follow up: Response: No adverse reaction; IV Status: Completed infusion; IV Intake: aa9 100ml 05:36 Drug: NS 0.9% with KCl 20 mEq/L 1000 ml Route: IV; Rate: 125 ml/hr; Site: right aa9 antecubital; Medication: 00:10 VIS not applicable for this client. aa9 Intake: 02:43 IV: 1000ml; Total: 1000ml. aa9 05:36 IV: 100ml; Total: 1100ml. aa9 Outcome: 02:07 Decision to Hospitalize by Provider. kong 02:37 Admitted to ER Hold. Please see [facility] for further documentation. aa9 02:37 Condition: stable 02:37 Instructed on the need for admit. 08:22 Patient left the ED. ss Signatures: Dispatcher [employer] EDOR Mello Jimenez MD MD cha Smirch, Shelby, RN RN ss Alka Sun Aylin RN RN aa9 Maisha Browning, RN RN kb3 Chanelle Chew, ELIE RN ko1 Corrections: (The following items were deleted from the chart) 03/05 23:43 23:43 Home Meds: metoprolol tartrate 25 mg Oral tab 1 tab 2 times per day; kb3 kb3
--- NOTE | 2022-03-06 02:08 | EDPHYS ---
Physician Documentation [facility] Name: Jennifer Tyler Age: 26 yrs Sex: Female : 1995 Arrival Date: 03/05/2022 Time: 23:34 Bed 14 Private MD: RASHEEDA Physician Mello Jimenez HPI: 03/06 02:01 This 26 yrs old Female presents to ER via Ambulatory with complaints of kong Vomiting, Post Surgical Pain. 02:01 The patient presents to the emergency department with nausea, vomiting, that is kong intermittent. Onset: The symptoms/episode began/occurred 1 day(s) ago. Possible causes: sp jayro. The symptoms are aggravated by food , The symptoms are alleviated by nothing. Associated signs and symptoms: Pertinent negatives:. Severity of symptoms: At their worst the symptoms were mild moderate in the emergency department the symptoms are unchanged. The patient has experienced a previous episode. 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 - Social history:: Smoking status: Patient denies any tobacco usage or history of. ROS: 03/06 02:01 Constitutional: Negative for fever, chills, and weight loss, Eyes: Negative for injury, kong pain, redness, and discharge, ENT: Negative for injury, pain, and discharge, Neck: Negative for injury, pain, and swelling, Cardiovascular: Negative for chest pain, palpitations, and edema, Respiratory: Negative for shortness of breath, cough, wheezing, and pleuritic chest pain, Back: Negative for injury and pain, : Negative for injury, bleeding, discharge, and swelling, MS/Extremity: Negative for injury and deformity, Skin: Negative for injury, rash, and discoloration, Neuro: Negative for headache, weakness, numbness, tingling, and seizure, Psych: Negative for depression, anxiety, suicide ideation, homicidal ideation, and hallucinations, Allergy/Immunology: Negative for hives, rash, and allergies, Endocrine: Negative for neck swelling, polydipsia, polyuria, polyphagia, and marked weight changes, Hematologic/Lymphatic: Negative for swollen nodes, abnormal bleeding, and unusual bruising. Abdomen/GI: Positive for abdominal pain, nausea and vomiting, of the epigastric area, right upper quadrant and left upper quadrant. Exam: 02:01 Constitutional: This is a well developed, well nourished patient who is awake, alert, kong and in no acute distress. Head/Face: Normocephalic, atraumatic. Eyes: Pupils equal round and reactive to light, extra-ocular motions intact. Lids and lashes normal. Conjunctiva and sclera are non-icteric and not injected. Cornea within normal limits. Periorbital areas with no swelling, redness, or edema. ENT: Nares patent. No nasal discharge, no septal abnormalities noted. Tympanic membranes are normal and external auditory canals are clear. Oropharynx with no redness, swelling, or masses, exudates, or evidence of obstruction, uvula midline. Mucous membranes moist. Neck: Trachea midline, no thyromegaly or masses palpated, and no cervical lymphadenopathy. Supple, full range of motion without nuchal rigidity, or vertebral point tenderness. No Meningismus. Chest/axilla: Normal chest wall appearance and motion. Nontender with no deformity. No lesions are appreciated. Cardiovascular: Regular rate and rhythm with a normal S1 and S2. No gallops, murmurs, or rubs. Normal PMI, no JVD. No pulse deficits. Respiratory: Lungs have equal breath sounds bilaterally, clear to auscultation and percussion. No rales, rhonchi or wheezes noted. No increased work of breathing, no retractions or nasal flaring. Back: No spinal tenderness. No costovertebral tenderness. Full range of motion. Female : Normal external genitalia. Skin: Warm, dry with normal turgor. Normal color with no rashes, no lesions, and no evidence of cellulitis. MS/ Extremity: Pulses equal, no cyanosis. Neurovascular intact. Full, normal range of motion. Neuro: Awake and alert, GCS 15, oriented to person, place, time, and situation. Cranial nerves II-XII grossly intact. Motor strength 5/5 in all extremities. Sensory grossly intact. Cerebellar exam normal. Normal gait. Psych: Awake, alert, with orientation to person, place and time. Behavior, mood, and affect are within normal limits. 02:01 Abdomen/GI: Inspection: distension, that is moderate, Bowel sounds: normal, Palpation: moderate abdominal tenderness, in the epigastric area, right upper quadrant and left upper quadrant, Indicators: Liver: no appreciated palpable abnormalities, Hernia: not appreciated. Vital Signs: 03/05 23:41 BP 128 / 79; Pulse 73; Resp 20; Temp 98; Pulse Ox 98% ; Weight 99.79 kg; Height 4 ft. kb3 10 in. (147.32 cm); Pain 02/02; 03/06 00:05 BP 151 / 87; Pulse 58; Resp 18 S; Pulse Ox 98% on R/A; aa9 00:45 BP 134 / 80; Pulse 52; Resp 18 S; Pulse Ox 97% on R/A; aa9 01:00 BP 126 / 81; Pulse 51; Resp 16 S; Pulse Ox 98% on R/A; aa9 01:52 BP 132 / 80; Pulse 58; Resp 17 S; Pulse Ox 96% on R/A; aa9 02:15 BP 134 / 91; Pulse 59; Resp 17 S; Pulse Ox 100% on R/A; aa9 03/05 23:41 Body Mass Index 45.98 (99.79 kg, 147.32 cm) kb3 MDM: 00:08 Patient medically screened. kong 02:03 Differential diagnosis: Nonspecific abd pain, gastritis, pancreatitis, viral kong gastroenteritis, gastroenteritis. Data reviewed: vital signs, nurses notes, lab test result(s), radiologic studies, CT scan, plain films. 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 Test interpretation: by ED physician or midlevel provider: plain radiologic studies. Counseling: I had a detailed discussion with the patient and/or guardian regarding: the historical points, exam findings, and any diagnostic results supporting the discharge/admit diagnosis, lab results, radiology results, the need for further work-up and treatment in the hospital. 03/06 00:10 Order name: CBC with Diff; Complete Time: kong 03/06 00:10 Order name: CMP; Complete Time: [facility] 03/06 00:10 Order name: Lipase; Complete Time: 01:12 [facility] 03/06 02:20 Order name: Urine Dipstick-Ancillary [facility] 03/06 02:26 Order name: Urine --Ancillary (enter results) mw2 03/06 02:39 Order name: Urine --Ancillary [facility] 03/06 00:10 Order name: CT Abd/Pelvis - IV Contrast Only [facility] 03/06 00:10 Order name: Chest Single View XRAY [facility] 03/06 02:43 Order name: SARS RAPID [facility] 03/06 03:13 Order name: SARS-COV-2 Antigen Rapid [facility] 03/06 05:35 Order name: Potassium [facility] 03/06 00:10 Order name: IV Saline Lock; Complete Time: 00:29 [facility] 03/06 00:10 Order name: Labs collected and sent; Complete Time: 00:29 [facility] 03/06 00:10 Order name: Urine Dipstick-Ancillary (obtain specimen); Complete Time: 00:29 [facility] 03/06 00:10 Order name: Urine Test (obtain specimen); Complete Time: 02:28 [facility] Administered Medications: 00:31 Drug: NS 0.9% 1000 ml Route: IV; Rate: 1 bolus; Site: right antecubital; aa9 02:43 Follow up: Response: No adverse reaction; IV Status: Completed infusion; IV Intake: aa9 1000ml 00:31 Drug: Pepcid (famotidine) 20 mg Route: IVP; Site: right antecubital; aa9 00:41 Follow up: Response: No adverse reaction aa9 00:31 Drug: Zofran (Ondansetron) 4 mg Route: IVP; Site: right antecubital; aa9 00:41 Follow up: Response: No adverse reaction aa9 00:31 Drug: morphine 4 mg Route: IVP; Infused Over: 4 mins; Site: right antecubital; aa9 00:41 Follow up: Response: No adverse reaction aa9 01:54 Drug: Potassium Chloride 20 mEq Route: IV; Rate: per protocol; Site: right antecubital; aa9 05:36 Follow up: Response: No adverse reaction; IV Status: Completed infusion; IV Intake: aa9 100ml 05:36 Drug: NS 0.9% with KCl 20 mEq/L 1000 ml Route: IV; Rate: 125 ml/hr; Site: right aa9 antecubital; Disposition Summary: 03/06/22 02:07 Hospitalization Ordered Hospitalization Status: Observation kong Provider: Dewey Melgar cha Condition: Stable kong Problem: new kong Symptoms: have improved kong Bed/Room Type: Standard kong Location: Telemetry/MedSurg (observation)(03/06/22 07:26) eb Room Assignment: 410(03/06/22 07:26) eb Diagnosis - Epigastric abdominal tenderness - sp cholecystectomy kong - Vomiting okng - Hypokalemia kong Forms: - Medication Reconciliation Form kong - SBAR form kong Signatures: Dispatcher [employer] EDMello Brooks MD MD cha Garcia, Cindy, RN RN Fatou Fraire Aylin, RN RN aa9 Maisha Browning RN RN kb3 Corrections: (The following items were deleted from the chart) 03/05 23:43 23:43 Home Meds: metoprolol tartrate 25 mg Oral tab 1 tab 2 times per day; kb3 kb3 03/06 02:10 02:07 Telemetry/MedSurg (observation) kong cg 02:10 02:07 kong cg 07:26 02:10 [facility] ER HOLD cg eb 07:26 02:10 ERHOLD- cg eb
[2022-03-06 02:20] LABS: Urine Blood 1+ (Negative); Urine Glucose Negative (Negative); Urine Protein Negative (Negative); Urine Specific Gravity 1.015 (1.005-1.030); Urine pH 6.5 (5.0-7.0)
[2022-03-06 02:38] LABS: Urine Specific Gravity/Preg 1.015 (1.005-1.030)
[2022-03-06] MEDS ORDERED: MORPHINE 4 MG/ML SYR IV PRN (03:04)
[2022-03-06] MEDS ORDERED: ONDANSETRON 4 MG/2 ML VIAL IV PRN (03:04)
[2022-03-06] MEDS ORDERED: ACETAMINOPHEN 325 MG TABLET PO PRN (03:04)
[2022-03-06] MEDS: D5.45NS W/KCL 20MEQ 20 MEQ/1,000 ML BAG IV SCH ×3 (03:04→12:01)
[2022-03-06 03:13] LABS: SARS-CoV-2 Antigen Rapid Res Negative (Negative)
[2022-03-06 06:05] VITALS: BMI 45.9
[2022-03-06] MEDS ORDERED: INFLUENZA VACCINE (for 6+ mo) 0.5 ML DOSE IMVAC ONE (08:00)
[2022-03-06] MEDS ORDERED: FAMOTIDINE 20 MG/2 ML VIAL IV SCH (09:00)
[2022-03-06 09:33] VITALS: O2SAT 97
[2022-03-06 12:36] VITALS: BP 142/76; TEMP 98.4
--- NOTE | 2022-03-06 13:04 | RAD REPORT ---
EXAM DESCRIPTION: Chest Single View CLINICAL HISTORY: 26 years Female, ABDOMINAL DISTENTION COMPARISON: None FINDINGS: No focal lung consolidation. No pleural effusion. No pneumothorax. Cardiomediastinal silhouette is within normal limits. No acute osseous abnormality. IMPRESSION: No acute cardiopulmonary disease. Electronically signed by: Dylan Luna DO 03/06/2022 12:49 AM ACTING TEACHER Due to temporary technical issues with the PACS/Fluency reporting system, reports are being signed by the in house radiologists without review as a courtesy to insure prompt reporting. The interpreting radiologist is fully responsible for the content of the report.
--- NOTE | 2022-03-06 13:49 | RAD REPORT ---
EXAM DESCRIPTION: CT Abdomen and Pelvis With Intravenous Contrast CLINICAL HISTORY: The patient is 26 years old and is Female; Abdominal pain, acute, nonlocalized TECHNIQUE: Axial computed tomography images of the abdomen and pelvis with intravenous contrast. S agittal and coronal reformatted images were created and reviewed. This CT exam was performed using one or more of the following dose reduction techniques: automated exposure control, adjustment of t he mA and/or kV according to patient size, and/or use of iterative reconstruction technique. DLP: 3105 mGy*cm COMPARISON: None. FINDINGS: LUNG BASES: Bibasilar atelectasis. No focal consolidation. No pleural effusion. HEART: Visualized heart is normal. ABDOMEN: LIVER: Hepatic steatosis. GALLBLADDER AND BILE DUCTS: Prior cholecystectomy. No ductal dilation. PANCREAS: Unremarkable. No mass. No ductal dilation. SPLEEN: Unremarkable. No splenomegaly. ADRENALS: Unremarkable. No mass. KIDNEYS AND URETERS: Unremarkable. No solid mass. No hydronephrosis. STOMACH AND BOWEL: Unremarkable. No obstruction. No mucosal thickening. PELVIS: APPENDIX: The appendix is seen and is within normal limits. BLADDER: Unremarkable. No mass. REPRODUCTIVE: Unremarkable as visualized. ABDOMEN and PELVIS: INTRAPERITONEAL SPACE: Trace expected residual postoperative pneumoperitoneum. Small amount of free pelvic fluid. Small amount of free pelvic fluid. BONES/JOINTS: No acute fracture. No dislocation. SOFT TISSUES: Multiple trocar sites sites are noted with swelling and subcutaneous emphysema. VASCULATURE: Unremarkable. No abdominal aortic aneurysm. LYMPH NODES: Unremarkable. No enlarged lymph nodes. IMPRESSION 1. No acute abdominal pelvic abnormality. 2. Trace expected residual postoperative pneumoperitoneum. Small amount of free pelvic fluid. Electronically signed by: Dylan Luna DO 03/06/2022 2:02 AM ANALYSIS LEAD Due to temporary technical issues with the PACS/Fluency reporting system, reports are being signed by the in house radiologists without review as a courtesy to insure prompt reporting. The interpreting radiologist is fully responsible for the content of the report.
--- NOTE | 2022-03-06 13:55 | P.DS ---
Admission Date: 03/06/22 Discharge Date: 03/06/22 Disposition: ROUTINE DISCHARGE Discharge Condition: GOOD Reason for Admission: Postoperative nausea and vomiting Brief History of Present Illness: This patient presented to the emergency room with severe nausea and vomiting and dehydration. Hospital Course: This patient had undergone a laparoscopic cholecystectomy with intraoperative cholangiogram earlier yesterday morning. She seemed to have tolerated the procedure well. Postoperatively she was ambulating, tolerating liquids, her pain was well controlled. She was anxious to be discharged. Having met discharge criteria, she was dismissed. Shortly after the patient got home, she began to experience extreme nausea as well as vomiting. She was unable to keep down any fluids. She could void on h er own, but just could not stop heaving. She returned to the emergency room for evaluation. She was given some Pepcid, Zofran, as well as Phenergan. An IV was started on her. At that time she was found to be hypokalemic. 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 Vital Signs/Physical Exam: Temp Pulse Resp BP Pulse Ox 98.4 F 63 18 142/76 H 99 03/06/22 12:00 03/06/22 12:00 03/06/22 12:30 03/06/22 12:00 03/06/22 12:30 Laboratory Data at Discharge: WBC 11.10 K/uL (4.3-10.9) H 03/06/22 00:22 Hgb 13.9 g/dL (12.0-15.0) 03/06/22 00:22 Hct 40.7 % (36.0-45.0) 03/06/22 00:22 Plt Count 265 K/uL (152-406) 03/06/22 00:22 Sodium 136 mmol/L (136-145) 03/06/22 00:22 Potassium 2.9 mmol/L (3.5-5.1) L* 03/06/22 04:47 BUN 10 mg/dL (7-18) 03/06/22 00:22 Creatinine 0.86 mg/dL (0.55-1.3) 03/06/22 00:22 Glucose 127 mg/dL (74-106) H 03/06/22 00:22 Total Bilirubin 0.8 mg/dL (0.2-1.0) 03/06/22 00:22 AST 39 U/L (15-37) H 03/06/22 00:22 ALT 48 U/L (12-78) 03/06/22 00:22 Alkaline Phosphatase 70 U/L (45-117) 03/06/22 00:22 Lipase 89 U/L (73-393) 03/06/22 00:22 Home Medications: Carvedilol [Coreg] 12.5 mg PO BID 03/05/22 Chlorthalidone [Hygroton 25mg Tab] 25 mg PO DAILY 03/05/22 Physician Discharge Instructions: DC IV, discharge home. See next week. Call for an appointment. You may shower. Continue incentive spirometry. Ambulated home. Diet as tolerated. Diet: Regular Activity: Ad noel Followup: Brendan Tyson MD [Primary Care Provider] -
== END 2022-03-06 14:12 | disposition home or self-care (01) ==
LOC: ER 23:31 → ERHOLD 03-06 02:08 → 4TH 03-06 07:56
PROVIDERS: ADMIT Surgery; ATTEND Surgery
DX: E87.6 Hypokalemia (principal); R11.2 Nausea with vomiting, unspecified; E86.0 Dehydration; Z20.822 Contact with and (suspected) exposure to COVID-19; Z98.890 Other specified postprocedural states; Z23 Encounter for immunization
CPT/HCPCS: 96365; 96361; 85025; 36415; 81025; 84132; 81003; 83690; 80053; 74177; 71045; 96375; 99285; 96366; 87811; Q9967; J3480 ×2; J7030; J2405 ×2; G0378

== ENCOUNTER 2024-03-04 21:04 | Emergency (ER) | payer BC ==
--- OUTSIDE RECORDS SUMMARY | 2024-03-04 21:08 | XMS REPORT | Continuity of Care Document ---
Author Name Unknown Address [address] [facility] [address] [place] [address] [facility] thconnect Address [address] [facility] [address] [place] [address] Care Team Providers Care Manager Customer Service Name Role Phone PCP, PATIENT DOES NOT HAVE A Primary Care Physic addy Unavailable Laura Barnes Attending Clinician Unavailable Caren Henson Attending Clinician Unavailable SOHAIL TABARES Attending Clinician Unavailable Ebrahim DOG HANDLER OR TRAINERSohail Attending Clinician + Unknown, Attending Attending Clinician Unavailab GHAZALA Brady Attending Clinician Unavailable Ebrahim DOG HANDLER OR TRAINERSohail Attending Clinician + Unknown, Attending Attending Clinician Unavailab ART Alicea Attending Clinician Unavailable Art Boss PA-C Attending Clinician [phone] Rita Richardson MD Attending Clinician [phone] RITA RICHARDSON Attending Clinician Unavailable Doctor Unassigned, [place] Attending Clinician U BOB Brownlee Attending Clinician Unavailable Green DOG HANDLER OR TRAINER, Nneka Attending Clinician [phone] NNEKA ALEMAN Attending Clinician Unavailable Anaid Gaston RN Attending Clinician Unavailable Shanelle Jones Attending Clinician [phone] Lab, Adc Fam Pob I Attending Clinician UnavailLibby Mckoy Attending Clinician [phone] Sadie Love Attending Clinician [phone] SADIE APONTE Attending Clinician Unavailable Laura Barnes Admitting Clinician Unavailable Payers Payer Name Policy Type Policy Number Effective Date Expirati on Date Source [facility] [id number] [facility]22 [id number] 00:00:00 Problems Condition Name Condition Details Condition Category Status Onset Date Resolution Date Last Treatment Date Treating Clinician Comments Source No known active problems No known active problems Disease [facility] Allergies, Adverse Reactions, Alerts Allergy Name Allergy Type Status Severity Reaction(s) Onset Date Inactive Date Treating Clinician Comments Source SULFAMET HOXAZOLE -TRIMETH OPRIM DRUG Active Unknown-Cmnt 2022-04 0-11 00:00: 00 [facility] Sulfamet hoxazole -Trimeth oprim Drug Allergy Active Unknown - See comments 2022-04 0-11 00:00: 00 [facility] SULFA (SULFONA MIDE ANTIBIOT ICS) Drug Class Active Hives 10-15 00:00: 00 [facility] Sulfa (Sulfona mide Antibiot ics) Propensi ty to adverse reaction s Active Hives 10-15 00:00: 00 [facility] Na Benzoate -Sulfame thoxazol e-Trimet hoprim Propensi ty to adverse reaction s Active 10-15 00:00: 00 Zakia Smith l Sulfa Drugs Propensi ty to adverse reaction s Active Hives 2021-04- 00:00: 00 Zakia young No Known Allergie s DA Active U 2020-04 1-16 00:00: 00 [facility] No Known Allergie s DA Active U 8-04 00:00: 00 [facility] No Known Allergie s DA Active U 8-04 00:00: 00 [facility] NO KNOWN ALLERGIE S Drug Class Active [facility] Social History Social Habit Start Date Stop Date Quantity Comments Source [facility] History of Social function 2024-02-16 00:00:00 2024-02-16 00:00:00 [facility] Exposure to SARS-CoV-2 (event) 2021-11-30 00:00:00 2021-12-10 16:20:00 Not sure [facility] Tobacco use and exposure 2021-10-08 00:00:00 2021-10-08 00:00:00 Smokeless tobacco non-user [facility] Sex assigned at 1995 00:00:00 1995 00:00:00 Zakia Pop Smoking Status Start Date Stop Date Source Never smoked tobacco [facility] Medications Ordered Medication Name Filled Medication Name Start Date Stop Date Current Medication? Ordering Clinician Indication Dosage Frequency Signature (SIG) Comments Components Source cefdinir 300 mg capsule 2023-04 00:00: 00 02-23 04:59 :00 Yes [id number] 600mg Take 2 capsules by mouth in the morning for 7 days. [facility] cefdinir 300 mg capsule 05-12 00:00: 00 05-20 05:59 :00 No [id number] 600mg Take 2 capsules by mouth in the morning for 7 days. [facility] methylPREDN ISolone (MEDROL, MARIO,) 4 mg tablets 2022-04 00:00: 00 Yes [id number] Take by mouth SEE-INSTRU CTIONS. follow package directions [facility] promethazin e-dextromet horphan 6.25-15 mg/5 mL syrup 2022-04 00:00: 00 03-31 05:59 :00 No [id number] 5mL Take 5 mL by mouth 4 (four) times daily for 10 days. [facility] Carvedilol 12.5 MG oral Tablet 10-15 10:37: 54 Yes TAKE 1 TABLET BY MOUTH TWICE DAILY WITH FOOD for 30 Zakia young Chlorthalid one 25 MG oral Tablet 10-15 10:34: 25 Yes every 24 hours Zakia Levy - Luis young Carvedilol 12.5 MG oral Tablet 10-10 00:00: 00 08-25 00:00 :00 No 12.5mg TAKE 1 TABLET BY MOUTH TWICE DAILY WITH FOOD for 30 Zakia young methocarbam oL (ROBAXIN-75 0) 750 mg tablet 12-10 00:00: 00 12-21 04:59 :00 No [id number] 750mg Take 1 tablet by mouth 4 (four) times daily for 10 days. [facility] triamcinolo ne acetonide (KENALOG) injection 40 mg 11-16 23:15: 00 11-16 22:15 :00 No [id number] 40mg [facility] methylPREDN ISolone (MEDROL, MARIO,) 4 mg tablets 11-16 00:00: 00 12-25 00:00 :00 No [id number] Take by mouth SEE-INSTRU CTIONS. follow package directions [facility] hydrOXYzine 25 mg tablet 11-16 00:00: 00 12-25 00:00 :00 No [id number] 25mg Take 1 tablet by mouth every 6 (six) hours as needed for Itching. [facility] guaiFENesin 400 mg tablet 10-08 00:00: 00 12-25 00:00 :00 No [id number] 400mg Take 1 tablet by mouth every 4 (four) hours as needed for Cough. [facility] benzonatate 100 mg capsule 10-08 00:00: 00 12-25 00:00 :00 No [id number] 200mg Take 2 capsules by mouth every 8 (eight) hours as needed for Cough. [facility] fluticasone propionate 50 mcg/actuati on nasal spray 10-08 00:00: 00 12-25 00:00 :00 No [id number] 1{spray } Use 1 [place] in each nostril daily. [facility] sulfamethox azole-trime thoprim 800-160 mg per tablet 10-02 00:00: 00 12-25 00:00 :00 No 1{tbl} Take 1 tablet by mouth 2 (two) times daily. [facility] metoprolol succinate XL 25 mg 24 hr tablet 09-25 00:00: 00 Yes 25mg Take 25 mg by mouth 2 (two) times daily. [facility] hydroCHLORO thiazide 12.5 mg tablet 09-10 00:00: 00 Yes 12.5mg Take 12.5 mg by mouth every morning. [facility] Vital Signs Vital Name Observation Time Observation Value Comments S jennifer Systolic blood pressure 2024-02-16 20:44:00 131 mm[Hg] [facility] Diastolic blood pressure 2024-02-16 20:44:00 81 mm[Hg] [facility] Heart rate 2024-02-16 20:44:00 93 /min [facility] Body temperature 2024-02-16 20:44:00 36.5 Chyna [facility] Respiratory rate 2024-02-16 20:44:00 16 /min [facility] Body weight 2024-02-16 20:44:00 99.338 kg [facility] BMI 2024-02-16 20:44:00 45.77 kg/m2 [facility] Oxygen saturation in Arterial blood by Pulse oximetry 2024-02-16 20:44:00 98 /min [facility] Systolic blood pressure 2023-08-26 13:19:00 127 mm[Hg] Zakia otto - External Diastolic blood pressure 2023-08-26 13:19:00 88 mm[Hg] Zakia otto - External Heart rate 2023-08-26 13:19:00 57 /min Espinoza Levy - External Body temperature 2023-08-26 13:19:00 36.72 Chyna Zakia Levy - External Respiratory rate 2023-08-26 13:19:00 20 /min Zakia Levy - External Body height 2023-08-26 13:19:00 152.4 cm Arabella Levy - External Body weight 2023-08-26 13:19:00 97.977 kg Arabella alcazar Seybold - External BMI 2023-08-26 13:19:00 42.18 kg/m2 Arabella Levy - External Oxygen saturation in Arterial blood by Pulse oximetry 2023-08-26 13:19:00 99 /min Zakia Gunter ld - External Systolic blood pressure 2023-05-13 00:58:00 132 mm[Hg] [facility] Diastolic blood pressure 2023-05-13 00:58:00 84 mm[Hg] [facility] Heart rate 2023-05-13 00:58:00 89 /min [facility] Body temperature 2023-05-13 00:58:00 37.39 Chyna [facility] Respiratory rate 2023-05-13 00:58:00 14 /min [facility] Body weight 2023-05-13 00:58:00 99.338 kg [facility] BMI 2023-05-13 00:58:00 45.77 kg/m2 [facility] Oxygen saturation in Arterial blood by Pulse oximetry 2023-05-13 00:58:00 98 /min [facility] Systolic blood pressure 2023-03-20 15:58:00 133 mm[Hg] [facility] Diastolic blood pressure 2023-03-20 15:58:00 89 mm[Hg] [facility] Heart rate 2023-03-20 15:58:00 86 /min [facility] Body temperature 2023-03-20 15:58:00 37.06 Chyna [facility] Respiratory rate 2023-03-20 15:58:00 16 /min [facility] Body weight 2023-03-20 15:58:00 99.156 kg [facility] BMI 2023-03-20 15:58:00 45.69 kg/m2 [facility] Oxygen saturation in Arterial blood by Pulse oximetry 2023-03-20 15:58:00 98 /min [facility] Systolic blood pressure 2023-02-03 22:16:00 126 mm[Hg] [facility] Diastolic blood pressure 2023-02-03 22:16:00 86 mm[Hg] [facility] Heart rate 2023-02-03 22:15:00 82 /min [facility] Body temperature 2023-02-03 22:15:00 37.22 Chyna [facility] Respiratory rate 2023-02-03 22:15:00 14 /min [facility] Body height 2023-02-03 22:15:00 147.3 cm [facility] Body weight 2023-02-03 22:15:00 98.521 kg [facility] BMI 2023-02-03 22:15:00 45.39 kg/m2 [facility] Oxygen saturation in Arterial blood by Pulse oximetry 2023-02-03 22:15:00 98 /min [facility] Systolic blood pressure 2022-12-25 14:45:00 129 mm[Hg] [facility] Diastolic blood pressure 2022-12-25 14:45:00 80 mm[Hg] [facility] Heart rate 2022-12-25 14:45:00 67 /min [facility] Body temperature 2022-12-25 14:45:00 37.06 Chyna [facility] Respiratory rate 2022-12-25 14:45:00 17 /min [facility] Body height 2022-12-25 14:45:00 147.3 cm [facility] Body weight 2022-12-25 14:45:00 97.75 kg [facility] BMI 2022-12-25 14:45:00 45.04 kg/m2 [facility] Oxygen saturation in Arterial blood by Pulse oximetry 2022-12-25 14:45:00 100 /min [facility] Systolic blood pressure 2022-10-15 15:31:00 139 mm[Hg] Zakia Gunter ld - External Diastolic blood pressure 2022-10-15 15:31:00 84 mm[Hg] Zakia Serratoo ld - External Heart rate 2022-10-15 15:31:00 61 /min Espinoza Levy - External Body temperature 2022-10-15 15:31:00 36.56 Chyna Zakia Levy - External Respiratory rate 2022-10-15 15:31:00 18 /min Zakia Serratoold - External Body height 2022-10-15 15:31:00 147.3 cm Arabella alcazar Seybprecious - External Body weight 2022-10-15 15:31:00 99.338 kg Arabella alcazar Seybold - External BMI 2022-10-15 15:31:00 45.77 kg/m2 Arabella alcazar Seybprecious - External Oxygen saturation in Arterial blood by Pulse oximetry 2022-10-15 15:31:00 98 /min Zakia Serratoo ld - External Systolic blood pressure 2021-12-10 21:28:00 133 mm[Hg] [facility] Diastolic blood pressure 2021-12-10 21:28:00 85 mm[Hg] [facility] Heart rate 2021-12-10 21:26:00 58 /min [facility] Body temperature 2021-12-10 21:26:00 36.67 Chyna [facility] Respiratory rate 2021-12-10 21:26:00 16 /min [facility] Body height 2021-12-10 21:26:00 147.3 cm [facility] Body weight 2021-12-10 21:26:00 101.47 kg [facility] BMI 2021-12-10 21:26:00 46.75 kg/m2 [facility] Oxygen saturation in Arterial blood by Pulse oximetry 2021-12-10 21:26:00 99 /min [facility] BMI 2021-11-16 21:41:00 45.98 kg/m2 Univ [facility] Oxygen saturation in Arterial blood by Pulse oximetry 2021-11-16 21:41:00 99 /min [facility] Systolic blood pressure 2021-11-16 21:41:00 127 mm[Hg] [facility] Diastolic blood pressure 2021-11-16 21:41:00 79 mm[Hg] [facility] Heart rate 2021-11-16 21:41:00 79 /min [facility] Body temperature 2021-11-16 21:41:00 37.11 Chyna [facility] Respiratory rate 2021-11-16 21:41:00 18 /min [facility] Body height 2021-11-16 21:41:00 147.3 cm [facility] Body weight 2021-11-16 21:41:00 99.791 kg [facility] Procedures Procedure Date / Time Performed Performing Clinicia n Source POCT URINALYSIS 2024-02-16 20:51:[address] [facility] POCT TEST 2024-02-16 20:50:00 Sowmya Boss [facility] POCT URINALYSIS 2023-05-13 00:59:00 Sohail Tabares [facility] POCT TEST 2023-05-13 00:55:00 Sohail Tabares [facility] POCT MOLECULAR FLU 2023-03-20 16:40:00 Unknown, Attend [facility] POCT SARS-COV-2 ANTIGEN (BINAX NOW) 2023-03-20 16:20:00 Sohail Tabares [facility] POCT SARS-COV-2 ANTIGEN (BINAX NOW) 2023-02-03 22:25:00 Art Boss [facility] POCT MOLECULAR FLU 2023-02-03 22:18:00 Unknown, Attend [facility] POCT MOLECULAR STREP 2023-02-03 22:11:00 Unknown, Attbrook galindo [facility] XR TIBIA FIBULA 2 VW RIGHT 2022-12-25 15:27:52 Rita Richardson [facility] XR ANKLE 3+ VW RIGHT 2022-12-25 15:26:42 Rita Richardson [facility] ASSIGNMENT OF BENEFITS 2022-12-25 14:29:16 Docto r Unassigned, [place] [facility] [id number] 2021-03-19 00:00:00 DRYDA [facility] Encounters Start Date/Time End Date/Time Encounter Type Admission Type Attending Clinicians Care Facility Care Department Encounter ID Source 2021-07-08 15:32:03 Outpatient [facility] [id number] [facility] 2021-04-04 16:23:00 Inpatient Laura Amato [facility] LD [id number] [facility] 2019-12-01 07:30:00 Inpatient Caren Mauro [facility] DAYS [id number] [facility] 2024-02-16 15:20:00 2024-02-16 16:30:41 Outpatient SOHAIL OLIVER [facility] [id number] [facility] 2024-02-16 15:20:00 2024-02-16 15:40:00 Urgent Care Sohail Tabares Unknown, Attending [facility] 1.2.840.114 350.1.13.10 4.2.7.2.686 [id number] [facility] 2023-09-02 00:00:00 2023-09-02 00:00:00 Outpatient GHAZALA EASON [id number] [facility] 2023-08-26 08:20:00 2023-08-26 08:20:00 Outpatient GHAZALA EASON [id number] [facility] 2023-05-12 18:40:00 2023-05-12 19:16:19 Outpatient R SOHAIL TABARES [facility] [id number] [facility] 2023-05-12 18:40:00 2023-05-12 19:00:00 Urgent Care Sohail Tabares Unknown, Attending [facility] 1.2.840.114 350.1.13.10 4.2.7.2.686 [id number] [facility] 2023-03-20 10:00:00 2023-03-20 10:20:00 Urgent Care Sohail Tabares Unknown, Attending [facility] 1..840.114 350.1.13.10 4.2.7.2.686 [id number] [facility] 2023-03-20 10:00:00 2023-03-20 10:00:00 Outpatient R SOHAIL TABARES [facility] [id number] [facility] 2023-02-03 17:00:00 2023-02-03 18:19:18 Outpatient R ART BOSS [facility] [id number] [facility] 2023-02-03 17:00:00 2023-02-03 18:19:18 Urgent Care Art Boss Unknown, Attending [facility] 1..840.114 350.1.13.10 4.2.7.2.686 [id number] [facility] 2022-12-25 09:51:28 2022-12-25 23:59:00 Hospital Encounter [facility] 1..840.114 350.1.13.10 4.2.7.2.686 [id number] [facility] 2022-12-25 09:51:27 2022-12-25 23:59:00 Outpatient R DYLAN [facility] [id number] [facility] 2022-12-25 09:51:27 2022-12-25 23:59:00 Hospital Encounter [facility] 1.2.840.114 350.1.13.10 4.2.7.2.686 [id number] [facility] 2022-12-25 09:40:00 2022-12-25 10:00:00 Urgent Care Rita Richardson Unknown, Attending [facility] 1.2.840.114 350.1.13.10 4.2.7.2.686 [id number] [facility] 2022-12-25 00:00:00 2022-12-25 00:00:00 Orders Only Doctor Unassigned, [place] [facility] 1..840.114 350.1.13.10 4.2.7.2.686 [id number] [facility] 2022-10-20 00:00:00 2022-10-20 00:00:00 Outpatient ZAKIA JOHNSON [id number] [facility] 2022-10-15 10:30:00 2022-10-15 10:30:00 Outpatient BOB SARMIENTO [id number] [facility] 2021-12-10 16:20:00 2021-12-10 16:33:[address] [facility] [id number] [facility] 2021-12-10 16:20:00 2021-12-10 16:33:[address] [facility] 1.2.840.114 350.1.13.10 4.2.7.2.686 [id number] [facility] 2021-11-16 16:40:00 2021-11-16 17:00:00 Urgent Care Ash Nneka [facility] SOHAIL?[facility] 1.2.840.114 350.1.13.10 4.2.7.2.686 [id number] [facility] 2021-11-16 16:40:00 2021-11-16 16:40:00 Outpatient R ASH NNEKA [facility] [id number] [facility] 2021-10-09 00:00:00 2021-10-09 00:00:00 Telephone Anaid Gaston [facility] 1.2.840.114 350.1.13.10 4.2.7.2.686 [id number] [facility] 2021-10-08 17:00:00 2021-10-08 17:19:07 Outpatient R RITA RICHARDSON [facility] [id number] [facility] 2021-10-08 17:00:00 2021-10-08 17:19:07 Urgent Care Rita Richardson, [facility] 1.2.840.114 350.1.13.10 4.2.7.2.686 [id number] [facility] 2021-10-08 00:00:00 2021-10-08 00:00:00 Orders Only Doctor Unassigned, [place] [facility] 1.2.840.114 350.1.13.10 4.2.7.2.686 [id number] [facility] 2021-03-26 20:03:00 2021-03-28 18:35:00 Inpatient EM Laura Barnes [facility] MEDI.01 [id number] [facility] 2021-03-18 06:52:00 2021-03-22 14:43:00 Inpatient EM Laura Barnes [facility] OBPP [id number] [facility] 2021-03-11 09:37:00 2021-03-11 11:37:00 Emergency EM Laura Barnes [facility] JESUS [id number] [facility] 2020-05-16 15:40:00 2020-05-16 15:40:00 Outpatient R [facility] [id number] [facility] 2020-05-16 15:38:01 2020-05-16 15:38:19 Laboratory Only Lab, Adc Fam Pob Libby Escalante A [facility] 1.840.114 350.1.13.10 4.2.7.2.686 [id number] [facility] 2020-01-10 08:00:00 2020-01-10 08:00:00 Outpatient R [facility] [id number] [facility] 2020-01-09 16:51:12 2020-01-09 17:11:12 Laboratory Only Lab, [facility] Pob Dain Aleman [facility] 1.840.114 350.1.13.10 4.2.7.2.686 [id number] [facility] 2020-01-09 17:00:00 2020-01-09 17:00:00 Outpatient R ASH NNEKA [facility] [id number] [facility] 2019-12-14 14:13:28 2019-12-14 14:33:28 Laboratory Only Lab, [facility] Erickb Dain Sadie Aponte [facility] 1..840.114 350.1.13.10 4.2.7.2.686 [id number] [facility] 2019-12-14 14:20:00 2019-12-14 14:20:00 Outpatient SADIE DAS [facility] [id number] [facility] Results Test Description Test Time Test Comments Results Result Co mments Source [id number] 20:50:00* Test Item Value Reference Range Interpretation Comme nts POCT PREG (test code = 1605) Negative On board controls acceptable with C Line (test code = 3574) Yes POCT PREG LOT # (test code = 3575) POCT PREG TEST DATE (test code = 357) KELLE (test code = KELLE) accurate developme nt and interpretation of all internal controls [facility] [id number] 01:10:00* Test Item Value Reference Range Interpretation Comme nts POCT PREG (test code = 1605) Negative On board controls acceptable with C Line (test code = 3574) Yes POCT PREG LOT # (test code = 3575) POCT PREG TEST DATE ( test code = 3576) Lab Interpretation (test cod e = 61615-3) Normal [facility] Urinalysis W Specific [id number] 01:00:00* Test Item Value Reference Range Interpretation Comme nts POCT U SP GRAV (test code = 3255) 1.015 mg/dl 1.005-1.025 POCT PH U (test code = 3254) 7 mg/dl 5-8 POCT U LEUK EST (test code = 3263) + Negative - Negative POCT U NIT (test code = 3262) Negative Negative - Negati ve POCT U PROT (test code = 3259) +++ Negative - Negative POCT U GLU (test code = 3256) Normal Negative - Negati ve POCT U KETONE (test code = 3258) Negative Negative - Negative POCT U UROBILI (test code = 3260) Normal 0.2-1 POCT U BILI (test code = 3261) Negative Negative - Negative POCT U BLD (test code = 3257) about 250 Negative - Negati ve POCT U COLOR (test code = 3266) Dark Brown POCT U APPEAR (test code = 3267) Cloudy Lab Interpretation (test cod e = 62652-8) Abnormal [facility] MOLECULAR [id number] 16:52:16* Test Item Value Reference Range Interpretation Comme nts POCT Molecular FluA (test co de = 79768-6) Negative Negative POCT Molecular FluB (test co de = 13139-9) Negative Negative Lab Interpretation (test cod e = 47329-7) Normal [facility] SARS-COV-2 ANTIGEN (BINAX NOW)2023-03-20 16:20:00* Test Item Value Reference Range Interpretation Comme nts POCT SARS-COV-2 ANTIGEN (test code = 37699-2) Not Detected Not Detected On board controls acceptable with C Line (test code = 3574) Yes KELLE (test code = KELLE) accurate developme nt and interpretation of all internal controls Lab Interpretation (test code = 41431-8) [facility] MOLECULAR [id number] 22:30:12* Test Item Value Reference Range Interpretation Comme nts POCT Molecular FluA (test co de = 78573-6) Negative Negative POCT Molecular FluB (test co de = 09317-0) Negative Negative Lab Interpretation (test cod e = 21739-5) [facility] SARS-COV-2 ANTIGEN (BINAX NOW)2023-02-03 22:25:00* Test Item Value Reference Range Interpretation Comme [facility] POCT SARS-COV-2 ANTIGEN (test code = 41221-4) Not Detected Not Detected On board controls acceptable with C Line (test code = 3574) Yes KELLE (test code = KELLE) accurate developme nt and interpretation of all internal controls Lab Interpretation (test code = 95227-2) [facility] MOLECULAR [id number] 22:18:39* Test Item Value Reference Range Interpretation Comme [facility] POCT Molecular Strep (test c ode = 06426-0) Negative Negative Lab Interpretation (test cod e = 49518-0) [facility] [id number] 14:55:00* Test Item Value Reference Range Interpretation Comme nts CYTOLOGY NON FIBRE CEMENT MOULDER (test code = CR) R UN DATE: 03/28/21 [facility] PAGE 1 RUN TIME: 1455 Specimen Inquiry RUN USER: INTERFACE Carolina ATIENT: JENNIFER SILVER LOC: U #: [id number] AGE/SX: 25/F ROOM: [facility] RE03/26/21REG DR: Laura Barnes MD : [birth year] BED: A DIS: STATUS: ADM Tasha TLOC: SPEC #: [id number] RECD: 03/27/21 STATUS: JENNIFER REStef #: [id number] CLAUDIA: 03/27/21- SUBM DR: Laura Barnes MD ENTERED: 03/27/21 SP TYPE: CYTO NGYN OTHR DR: DOES_NOT KNOW ORDERED: ANATOMIC SPEC, SPEC TRACK, [id number], 92766 COPIES TO: DOES_NOT KNOW Laura Barnes MD [address] [id number] PROCEDURES: [id number] (03/27/21-1251) 02036 (03/28/21-1445) TISSUES: A. PELVIC FLUID WASHING (CYTOSPIN,CELL BLOCK) - PELVIC ABSCESS FLUID FINAL DIAGNOSIS PELVIC ABSCESS:-Marked acute inflammation, consistent with the provided history of an abscess. -No malignant epithelial cells identified. GROSS DESCRIPTION Site A received in a tubular container labeled with the patient's name and date of birthdesignated "pelvic abscess fluid" is 5 mL of red-vela viscous fluid. The specimen will besent to [facility] for cytospin and cell block. LC Technical component performed at [facility],[address], [place] [address] Unless gross only, the diagnosis is based [...] CONTINUED ON NEXT PAGE R UN DATE: 03/28/21 [facility] PAGE 2 RUN TIME: 1455 Specimen Inquiry RUN USER: INTERFACE S JENA #: [id number] PATIENT: JENNIFER SILVER #[id number] (Continued) CLINICAL INFORMATION PELVIC ABSCESS C SECTION ------ Signed _ Monisha Frias 03/28/21 1455 END OF REPORT CBC W/MANUAL [id number] 10:44:00* Test Item Value Reference Range Interpretation Comme nts WHITE BLOOD CELL (test code = WBC) [...] pg 27.3-33.9 L MEAN CELL HGB CONCETRATION ( test code = MCHC) 32.6 gm/dL 32.0-34.2 N RED CELL DISTRIBUTION WIDTH (test code = RDW) 14.3 % 12.2-16.3 N PLATELET COUNT (test code = PLT) 326 K/mm3 134-363 N MEAN PLATELET VOLUME (test c ode = MPV) 10.0 fL 9.2-12.7 N SEGMENTED NEUTROPHILS (test code = SEG) 73 % 56.5-79.4 N LYMPHOCYTE (test code = LYMPH) 20 % 20-40 N TOTAL CELLS COUNTED (test co de = TCC) 100 #CELLS MONOCYTE (test code = MON) 4 % 0-8 N EOSINOPHIL (test code = EOS) 3 % 0-4 N MICROCYTOSIS (test code = MICR) 1+ PLATELET ESTIMATE (test code = PLTEST) ADEQUATE ADEQ PLATELET MORPHOLOGY (test co de = PLTMORPH) NORMAL NORMAL - CT PERC [id number] 00:00:00 [facility] 1995 Sex: F Patient Name: JENNIFER SILVER Unit No: [id number] EXAMS: CPT CODE: [id number] CT PERC DRAIN 20634 Radiation Dose CTDIVOL = 43.3 (mGy): DLP [...] patient size (includes targeted exams where dose ismatched to clinical indication); or iterative reconstruction. COMPARISON: [...] Procedure summary: Preliminary axial noncontrast CT images againdemonstrate the large complex fluid collection containing multiple air bubbles within the lower rectus sheath and the 3 x 4.5 cm midline subcutaneous fluid collection in the lower abdominal wall deepto the transverse incision. Under sterile conditions, utilizing CT guidance and 1% lidocaine local anesthesia, an 18 gauge Chiba needle was introduced into the rectus sheath collection. Grossly infected foul-smelling [facility] NAME: JENNIFER SILVER Radiology Department PHYS: Mireya Monk [address] : 1995 AGE: 25 SEX: F [place], [place] [address] LOC: F.2600 A PHONE #: [phone] EXAM DATE: 03/27/2021 STATUS: ADM IN FAX #: [phone] RAD NO: Page 1 Signed Report 1 Patient Name: JENNIFER SILVER Unit No: [id number] EXAMS: CPT CODE: [id number] CT PERC DRAIN 38976 <Continued> hemorrhagic material was aspirated. A superstiff guidewire was introduced. The tract was dilated to 12 [place] Korean. A 12 [place] self-retaining pigtail drainage catheter was introduced. The pigtail loop was reformed within the collection. 40 cc of infected material was aspirated. The catheter was attached to a Elmo-Royal drain. Next, under sterile conditions, utilizing CT guidance and 1% lidocaine local anesthesia, an 18 gauge Chiba needle was introduced into the lower subcutaneous fluid collection. Similar infected material wasaspirated. A superstiff guidewire was introduced. The tract was dilated to 8 [place] Korean. A self-retaining 8 [place] pigtail drainage catheter was introduced and the pigtail loop was reformed within the collection. The catheter was attached to a Elmo-Royal drain. Sterile dressings were applied. Procedural imaging: See above Complications: No immediate complications. IMPRESSION: Placement of 2 abdominal wall drainage catheters without complication. at 1300 Reported and signed by: Dell Marley MD CC: Laura Arias; Mireya Magana MD Technologist: Loren Alcantar RT, CT CTDI: 43.30 DLP: 2485.87 Trnscrbd D/ (1300) GCD.[facility] NAME: JENNIFER SILVER Radiology Department PHYS: Mireya Monk [address] : 1995 AGE: 25 SEX: F [place], [place] [address] LOC: F.2600 A PHONE #: [phone] EXAM DATE: 03/27/2021 STATUS: ADM IN FAX #: [phone] RAD NO: Page 2 Signed Report 1 Patient Name: JENNIFER SILVER Unit No: [id number] EXAMS: CPT CODE: [id number] CT PERC DRAIN 94210 <Continued> Orig Print D/T: S: 03/27/2021 (1301) [facility] NAME: JENNIFER SILVER Radiology Department PHYS: [address] [place], [place] [address]Mireya [address] : 1995 AGE: 25 SEX: F [place], [place] [address] LOC: Selvin2600 A PHONE #: [phone] EXAM DATE: 03/27/2021 STATUS: ADM IN FAX #: [phone] RAD NO: Page 3 Signed Report 1PROTHROMBIN [id number] 21:02:00* Test Item Value Reference Range Interpretation Comme nts PROTHROMBIN TIME PATIENT (te st code = PTP) 11.8 secs 10.1-12.3 N THROMBOPLASTIN TIME [id number] 21:02:00* Test Item Value Reference Range Interpretation Comme nts THROMBOPLASTIN TIME PARTIAL (test code = PTT) 32.5 secs 22-38 N UA RFLX MICR CULT IF [id number] 19:00:00* Test Item Value Reference Range Interpretation Comme nts UA COLOR (test code = COLU) YELLOW YELLOW UA APPEARANCE (test code = APPU) CLEAR CLEAR UA GLUCOSE DIPSTICK (test co de = DGLUU) NEGATIVE NEG UA BILIRUBIN DIPSTICK (test code = BILU) NEGATIVE NEG UA KETONE DIPSTICK (test cod e = KETU) NEGATIVE NEG UA SPECIFIC GRAVITY (test co de = SGU) 1.032 1.001-1.035 N UA BLOOD DIPSTICK (test code = KEARA) 2+ NEG A UA PH DIPSTICK (test code = CHARLES) 6.0 5-9 UA PROTEIN DIPSTICK (test co de = PROU) NEGATIVE NEG UA UROBILINIOGEN DIPSTICK (test code = URO) NEGATIVE mg/dL NEG UA NITRITE DIPSTICK (test co de = RICH) NEG NEG UA LEUKOCYTE ESTERASE DIPSTI CK (test code = LEUU) NEG NEG UA WBC (test code = WBCU) 3-5 #/hpf NONE SEEN A UA RBC (test code = RBCU) 11-15 #/hpf NONE SEEN A UA EPITHELIAL CELLS (test co de = EPIU) RARE #/HPF RARE-FEW UA MUCUS (test code = MUCU) RARE NONE SEEN Indication for culture: Temperature > 100.4 FSpecimen Description: CLEAN CATCHSpecimen Comment: CLEAN CATCHCOVID 19 Asymptomatic IH [id number] 16:50:00 * Test Item Value Reference Range Interpretation Comme nts COVID 19 Asymptomatic IH AG (test code = COVNONPUIAG) NEGATIVE NEGATIVE This test has be en authorized only for the detection ofproteins from SARS-CoV-2, not for any other viruses orpathogens. Negative results should be treated as presumptive andconfirmed with a molecular assay, if necessary for patientmanagement. Negative results do not rule out COVID-19 andshould not be used as the sole basis for treatment orpatient management decisions, including infection controldecisions. Negative results should be considered in thecontext of a patient's recent exposures, history and thepresence of clinical signs and symptoms consistent withCOVID-19. This test has not been FDA cleared or approved; the test hasbeen authorized by FDA under an Emergency Use Authorization(EUA) for use by laboratories certified under the CLIA thatmeet the requirements to perform moderate, high or waivedcomplexity tests. This test is authorized for use at thePoint of Care (POC), i.e., in patient care settingsoperating under a CLIA Certificate of Waiver, Certificate ofCompliance, or Certificate of Accreditation. This test is only authorized for the duration of thedeclaration that circumstances exist justifying theauthorization of emergency use of in vitro diagnostic testsfor detection and/or diagnosis of COVID-19 under Oieiaqu393(b)(1) of the Act, 21 U.S.C. 360bbb-3(b)(1), unless theauthorization is terminated or revoked sooner. CBC W/AUTO [id number] 16:13:00* Test Item Value Reference Range Interpretation Comme nts WHITE BLOOD CELL (test code = WBC) [...] pg 27.3-33.9 L MEAN CELL HGB CONCETRATION ( test code = MCHC) 32.5 gm/dL 32.0-34.2 N RED CELL DISTRIBUTION WIDTH (test code = RDW) 14.1 % 12.2-16.3 N PLATELET COUNT (test code = PLT) 383 K/mm3 134-363 H MEAN PLATELET VOLUME (test c ode = MPV) 10.0 fL 9.2-12.7 N NEUTROPHIL % (test code = NT%) 79.9 [...] = BA#) 0.0 K/mm3 RBC MORPHOLOGY REQUIRED (robbie t code = RBCM) NORMAL NORMAL PLATELET MORPHOLOGY REQUIRED (test code = PLTMR) NORMAL NORMAL LIVER [id number] 16:09:00* Test Item Value Reference Range Interpretation Comme nts BILIRUBIN DIRECT (test code = BILD) 0.1 mg/dL <0.2 N [id number] 16:09:00* Test Item Value Reference Range Interpretation Comme nts LIPASE (test code = LIP) 125 units/L 73-393 N LACTIC [id number] 16:09:00* Test Item Value Reference Range Interpretation Comme nts LACTIC ACID (test code = LACT) 1.2 MMOL/L 0.5-2.2 N COMPREHENSIVE METABOLIC [id number] 16:09:00* Test Item Value Reference Range Interpretation Comme nts SODIUM (test code = NA) 138 mEq/L 135-145 N POTASSIUM (test code = K) 3.7 mEq/L 3.5-5.0 N CHLORIDE (test code = CL) 101 mEq/L 100-115 N CARBON DIOXIDE (test code = CO2) 26 mEq/L 22-31 N ANION GAP (test code = GAP) 15.20 10-20 N GLUCOSE (test code = GLU) 128 mg/dL 65-110 H BLOOD UREA NITROGEN (test co de = BUN) 13 mg/dL 7-18 N GLOMERULAR FILTRATION RATE ( test code = GFR) 86 ml/min >60 N CREATININE (test code = CREAT) 0.8 mg/dL 0.5-1.0 N TOTAL PROTEIN (test code = PROT) 7.5 gm/dL 6.3-8.2 N ALBUMIN (test code = ALB) 2.7 gm/dL 3.4-4.8 L CALCIUM (test code = CA) 9.2 mg/dL 8.4-10.2 N BILIRUBIN TOTAL (test code = BILT) 0.3 mg/dL 0.2-1.0 N SGOT/AST (test code = AST) 30 units/L 15-37 N SGPT/ALT (test code = ALT) 38 units/L 12-78 N ALKALINE PHOSPHATASE TOTAL ( test code = ALKP) 118 units/L 46-116 H - CT ABD PELVIS [id number] 00:00:00 [facility] : 1995 Sex: F Patient Name: JENNIFER SILVER Unit No: [id number] EXAMS: CPT CODE: [id number] CT ABD P ADRY W/CONT 42592 Radiation Dose CTDIVOL = 20.68 (mGy): DLP [...] COMPARISON: CR XR CHEST 1V 03/26/2021 3:42 PMFINDINGS: ABDOMINAL ORGANS: No acute CT abnormalities of [...] bowel dilatation is present to suggest [facility] NAME: JENNIFER SILVER Radiology Department PHYS: Indira Foster MD [address] : 1995 AGE: 25 SEX: F [place], [place] [address] LOC: [place] PHONE #: [phone] EXAM DATE: 03/26/2021 STATUS: REG ER FAX #: [phone] RAD NO: Page 1 Signed Report 1 Patient Name: JENNIFER SILVER Unit No: [id number] EXAMS: CPT CODE: [id number] CT ABD PELVIS W/CONT 22783 <Continued> acute obstruction. The appendix is identified and is not acutely inflammed. The colon demonstrates no evidenceof diverticular disease or acute inflammatory wall thickening. [...] fluid collection is identified in the subcutaneous fat.2. No additional acute CT abnormalities of the abdomen or pelvis are detected. SL:131 at 1804 Reported and signed by: Miguel Desai MD [facility] NAME: JENNIFER SILVER Radiology Department PHYS: Indira Foster MD [address] : 1995 AGE: 25 SEX: F [place], [place] [address] LOC: [place] PHONE #: [phone] EXAM DATE: 03/26/2021 STATUS: REG ER FAX #: [phone] RAD NO: Page 2 Signed Report 1 Patient Name: JENNIFER SILVER Unit No: [id number] EXAMS: CPTCODE: [id number] CT ABD PELVIS W/CONT 61774 <Continued> CC: Laura Arias; Indira Doty MD Technologist: Mireya Sol, RT CTDI: DLP: Trnscrbd D/ (1804) GCD.[facility] NAME: OMAR SILVEROSCAR DAVISLE Radiology Department PHYS: Indira Foster MD [address] : 1995 AGE: 25 SEX: F [place] [address] LOC: F.ERS PHONE #: [phone] EXAM DATE: 03/26/2021 STATUS: REG ER FAX #: [phone] RAD NO: Page 3 Signed Report 1 Patient Name: JENNIFER SILVER Unit No: [id number] EXAMS: CPT CODE: [id number] CT ABD PELVIS W/CONT 88565 <Continued> Orig Print D/T: S: 03/26/2021 (1805) [facility] NAME: OMAR SILVEROSCAR RAMOS Radiology Department PHYS: Indira Foster MD [address] : 1995 AGE: 25 SEX: F [place] [address] LOC: F.ERS PHONE #: [phone] EXAM DATE: 03/26/2021 STATUS: REG ER FAX #: [phone] RAD NO: Page 4 Signed Report 1- XR CHEST 1 [id number] 00:00:00 [facility] RACHEL : 1995 Sex: F Patient Name: JENNIFER SILVER Unit No: [id number] EXAMS: CPT CODE: [id number] XR CHEST 1 V 61954 PROCEDURE INFORMATION: Exam: XR Chest Exam date [...] IMPRESSION: Clear lungs. at 1600 Reported and signedby: Samuel Dejesus MD CC: Laura Arias; Indira Doty MD Technologist: Belinda Horn, RT; Lynette Gravin RT Trnscrbd D/ (1600) GCD.[facility] Orig Print D/T: S: 03/26/2021 (1601)[facility] NAME: JENNIFER SILVER Radiology Department PHYS: Indira Foster MD [address] : 1995 AGE: 25 SEX: F [place], [place] [address] LOC: [place] PHONE #: [phone] EXAM DATE: 03/26/2021 STATUS: REG ER FAX #: [phone] RAD NO: Page 1 Signed [id number] 12:37:00* Test Item Value Reference Range Interpretation Comme nts SURGICAL (test code = SR) R UN DATE: 03/25/21 [facility] PAGE 1 RUN TIME: 1237 Specimen Inquiry RUN USER: INTERFACE P ATIENT: JENNIFER SILVER [facility] #: [id number] AGE/SX: ROOM: [facility] RE03/18/21REG DR: Laura Barnes MD : [birth year] BED: A DIS: 03/22/21 STATUS: DIS IN TLOC: SPEC #: [id number] RECD: 03/21/21 STATUS: JENNIFER SABA #: [id number] CLAUDIA: 03/18/21- SUBM DR: Laura Branes MD ENTERED: 03/21/21 SP TYPE: SURGICAL OT DR: ORDERED: ANATOMIC SPEC, SPEC TRACK, [id number] PROCEDURES: [id number] (03/21/21) TISSUES: A. PLACENTA, THIRD TRIMESTER (28 [...] red cut surface with no gross lesion. Cushion Assembler sections aresubmitted as follows: A1: Membrane roll and cordA2: Full thickness placental discA3: Full thickness placental disc at edge LC Technical component performed at [facility],[address] , [place] [address] MICROSCOPIC DESCRIPTION Technical component performed at [facility], [place] [address] Unless gross only, the diagnosis is based [...] Inquiry RUN USER: INTERFACE S PEC #: [id number] PATIENT: NADEEMJENNIFER RACHEL #[id number] (Continued) CLINICAL INFORMATION ON MAG -- Signed SIGNATURE ON FILE Amado Farias 03/25/21 1237 END OF REPORT COMPREHENSIVE METABOLIC [id number] 08:14:00* Test Item Value Reference Range Interpretation Comme nts SODIUM (test code = NA) 141 mEq/L 135-145 N POTASSIUM (test code = K) 4.3 mEq/L 3.5-5.0 N CHLORIDE (test code = CL) 106 mEq/L 100-115 N CARBON DIOXIDE (test code = CO2) 24 mEq/L 22-31 N ANION GAP (test code = GAP) 14.90 10-20 N GLUCOSE (test code = GLU) 74 mg/dL 65-110 N BLOOD UREA NITROGEN (test co de = BUN) 7 mg/dL 7-18 N GLOMERULAR FILTRATION RATE ( test code = GFR) 120 ml/min >60 N CREATININE (test code = CREAT) 0.6 mg/dL 0.5-1.0 N TOTAL PROTEIN (test code = PROT) 5.3 gm/dL 6.3-8.2 L ALBUMIN (test code = ALB) 2.2 gm/dL 3.4-4.8 L CALCIUM (test code = CA) 6.7 mg/dL 8.4-10.2 L BILIRUBIN TOTAL (test code = BILT) 0.2 mg/dL 0.2-1.0 N SGOT/AST (test code = AST) 25 units/L 15-37 SGPT/ALT (test code = ALT) 18 units/L 12-78 N ALKALINE PHOSPHATASE TOTAL ( test code = ALKP) 113 units/L 46-116 N CBC W/AUTO [id number] 07:41:00* Test Item Value Reference Range Interpretation Comme nts WHITE BLOOD CELL (test code = WBC) [...] pg 27.3-33.9 L MEAN CELL HGB CONCETRATION ( test code = MCHC) 32.7 gm/dL 32.0-34.2 N RED CELL DISTRIBUTION WIDTH (test code = RDW) 15.0 % 12.2-16.3 N PLATELET COUNT (test code = PLT) 201 K/mm3 134-363 N MEAN PLATELET VOLUME (test c ode = MPV) 11.7 fL 9.2-12.7 N NEUTROPHIL % (test code = NT%) 73.5 [...] = BA#) 0.0 K/mm3 RBC MORPHOLOGY REQUIRED (robbie t code = RBCM) NORMAL NORMAL PLATELET MORPHOLOGY REQUIRED (test code = PLTMR) NORMAL NORMAL CAPILLARY BLOOD [id number] 12:19:00* Test Item Value Reference Range Interpretation Comme [facility] CAPILLARY BLOOD GAS PH (test code = PHC) 7.172 7.35-7.45 LL CAPILLARY BLOOD GAS PCO2 (te st code = PCO2C) 60.2 mmHg CAPILLARY BLOOD GAS PO2 (robbie t code = PO2C) 12.3 mmHg CBG HCO3 (test code = HCO3C) 21.6 meq/L CBG BASE EXCESS (test code = BEC) -7.8 CAPILLARY BLOOD GAS TYPE (te st code = TYPEC) CBLV CAPILLARY BLOOD GAS FIO2 (te st code = FIO2C) 21.0 % CAPILLARY BLOOD [id number] 12:18:00* Test Item Value Reference Range Interpretation Comme [facility] CAPILLARY BLOOD GAS PH (test code = PHC) 7.078 7.35-7.45 LL CAPILLARY BLOOD GAS PCO2 (te st code = PCO2C) 79.2 mmHg CAPILLARY BLOOD GAS PO2 (robbie t code = PO2C) 14.5 mmHg CBG HCO3 (test code = HCO3C) 22.8 meq/L CBG BASE EXCESS (test code = BEC) -9.0 CAPILLARY BLOOD GAS TYPE (te st code = TYPEC) CBLA CAPILLARY BLOOD GAS FIO2 (te st code = FIO2C) 21.0 % [id number] 02:35:00* Test Item Value Reference Range Interpretation Comme nts MAGNESIUM (test code = MAG) 5.4 mg/dL 1.8-2.4 HH RESULTS CALLED Josue IBANEZ.READ BACK & CONFIRMED? YES.BY [id number] 03/19/21233.Results verified by repeat analysis AG HEPATITIS B [id number] 02:42:00* Test Item Value Reference Range Interpretation Comme [facility] AG HEPATITIS B SURFACE (test code = HBSAG) NONREACTIVE NONREACTIVE AB HEPATITIS C [id number] 02:42:00* Test Item Value Reference Range Interpretation Comme nts AB HEPATITIS C (test code = HCVAB) NONREACTIVE NONREACTIVE SIGNAL TO CUTOFF (test code = CUTOFF) <0.02 <0.80 N AB [id number] 02:42:00* Test Item Value Reference Range Interpretation Comme nts AB TREPONEMA (test code = TREPAB) NONREACTIVE NONREACTIVE AB HIV 1 02:42:00* Test Item Value Reference Range Interpretation Comme nts AB HIV 1 2 (test code = VDB68EG) NONREACTIVE NONREACTIVE Done by [employer] 4th Gen HIV Ag/Ab Combo Screen CBC W/AUTO [id number] 01:33:00* Test Item Value Reference Range Interpretation Comme nts WHITE BLOOD CELL (test code = WBC) [...] pg 27.3-33.9 L MEAN CELL HGB CONCETRATION ( test code = MCHC) 33.4 gm/dL 32.0-34.2 N RED CELL DISTRIBUTION WIDTH (test code = RDW) 15.6 % 12.2-16.3 N PLATELET COUNT (test code = PLT) 244 K/mm3 134-363 N MEAN PLATELET VOLUME (test c ode = MPV) 12.1 fL 9.2-12.7 N NEUTROPHIL % (test code = NT%) 61.3 [...] = BA#) 0.0 K/mm3 RBC MORPHOLOGY REQUIRED (robbie t code = RBCM) NORMAL NORMAL PLATELET MORPHOLOGY REQUIRED (test code = PLTMR) NORMAL NORMAL COVID 19 Asymptomatic IH [id number] 01:16:00* Test Item Value Reference Range Interpretation Comme nts COVID 19 Asymptomatic IH AG (test code = COVNONPUIAG) NEGATIVE NEGATIVE This test has be en authorized only for the detection ofproteins from SARS-CoV-2, not for any other viruses orpathogens. Negative results should be treated as presumptive andconfirmed with a molecular assay, if necessary for patientmanagement. Negative results do not rule out COVID-19 andshould not be used as the sole basis for treatment orpatient management decisions, including infection controldecisions. Negative results should be considered in thecontext of a patient's recent exposures, history and thepresence of clinical signs and symptoms consistent withCOVID-19. This test has not been FDA cleared or approved; the test hasbeen authorized by FDA under an Emergency Use Authorization(EUA) for use by laboratories certified under the CLIA thatmeet the requirements to perform moderate, high or waivedcomplexity tests. This test is authorized for use at thePoint of Care (POC), i.e., in patient care settingsoperating under a CLIA Certificate of Waiver, Certificate ofCompliance, or Certificate of Accreditation. This test is only authorized for the duration of thedeclaration that circumstances exist justifying theauthorization of emergency use of in vitro diagnostic testsfor detection and/or diagnosis of COVID-19 under Aqvmfap711(b)(1) of the Act, 21 U.S.C. 360bbb-3(b)(1), unless theauthorization is terminated or revoked sooner. [facility] [id number] 00:58:00* Test Item Value Reference Range Interpretation Comme nts CREATININE (test code = CREAT) 0.5 mg/dL 0.5-1.0 N SGOT/AST (test code = AST) 64 units/L 15-37 H SPECIMEN HEMOLYZ ED SGPT/ALT (test code = ALT) 21 units/L 12-78 N SPECIMEN HEMOLYZ ED LACTIC DEHYDROGENASE(LDH) (test code = LDH) 554 units/L 81-234 H SPECIMEN HEMOL YZED : *UR PROTEIN/CREATININE [id number] 00:39:00* Test Item Value Reference Range Interpretation Comme nts UR PROTEIN RANDOM (test code = PROTU) 8.9 mg/dL UR CREATININE RANDOM (test code = CREATU) 12.1 mg/dL PROTEIN/CREATININE RATIO (te st code = P/CRATIO) 735.5 mg/gcrea <200 H COMPREHENSIVE METABOLIC [id number] 10:27:00* Test Item Value Reference Range Interpretation Comme nts SODIUM (test code = NA) 138 mEq/L 135-145 N POTASSIUM (test code = K) 4.1 mEq/L 3.5-5.0 N CHLORIDE (test code = CL) 105 mEq/L 100-115 N CARBON DIOXIDE (test code = CO2) 23 mEq/L 22-31 N ANION GAP (test code = GAP) 13.90 10-20 N GLUCOSE (test code = GLU) 75 mg/dL 65-110 N BLOOD UREA NITROGEN (test co de = BUN) 8 mg/dL 7-18 N GLOMERULAR FILTRATION RATE ( test code = GFR) 120 ml/min >60 N CREATININE (test code = CREAT) 0.6 mg/dL 0.5-1.0 N TOTAL PROTEIN (test code = PROT) 6.4 gm/dL 6.3-8.2 N ALBUMIN (test code = ALB) 2.8 gm/dL 3.4-4.8 L CALCIUM (test code = CA) 8.5 mg/dL 8.4-10.2 N BILIRUBIN TOTAL (test code = BILT) 0.3 mg/dL 0.2-1.0 N SGOT/AST (test code = AST) 16 units/L 15-37 N SGPT/ALT (test code = ALT) 19 units/L 12-78 N ALKALINE PHOSPHATASE TOTAL ( test code = ALKP) 141 units/L 46-116 H UR PROTEIN/CREATININE [id number] 10:22:00* Test Item Value Reference Range Interpretation Comme nts UR PROTEIN RANDOM (test code = PROTU) 21.3 mg/dL UR CREATININE RANDOM (test code = CREATU) 85.2 mg/dL PROTEIN/CREATININE RATIO (te st code = P/CRATIO) 250.0 mg/gcrea <200 H CBC W/AUTO [id number] 10:05:00* Test Item Value Reference Range Interpretation Comme nts WHITE BLOOD CELL (test code = WBC) [...] pg 27.3-33.9 L MEAN CELL HGB CONCETRATION ( test code = MCHC) 33.2 gm/dL 32.0-34.2 N RED CELL DISTRIBUTION WIDTH (test code = RDW) 14.9 % 12.2-16.3 N PLATELET COUNT (test code = PLT) 245 K/mm3 134-363 N MEAN PLATELET VOLUME (test c ode = MPV) 11.2 fL 9.2-12.7 N NEUTROPHIL % (test code = NT%) 73.5 [...] = BA#) 0.0 K/mm3 RBC MORPHOLOGY REQUIRED (robbie t code = RBCM) NORMAL NORMAL PLATELET MORPHOLOGY REQUIRED (test code = PLTMR) NORMAL NORMAL COVID 19 Asymptomatic IH [id number] 16:21:00* Test Item Value Reference Range Interpretation Comme nts COVID 19 Asymptomatic IH AG (test code = COVNONPUIAG) Test not performed NEGATIVE SEE [facility] RESULT.DUPLICATE REQUEST.Previous ly reported result: NEGATIVE Edited by: CHERRI on 12/04/19:1621 Novel Coronavirus [id number] 16:19:00* Test Item Value Reference Range Interpretation Comme nts Novel Coronavirus 2019 Inhouse (test code = [id number]) Not Detected NEGATIVE Positive results are indicative of the presence lrZBPV-HcT-2 RNA, clinical correlation with patient historyand other diagnostic information is necessary to determinepatient infection status. Positive results do not rule outbacterial infection or co-infection with other viruses. Negative results do not preclude SARS-CoV-2 infection andshould not be used as the sole basis for patient managementdecisions. Negative results must be combined with otherclinical observations, patient history, and epidemiologicalinformatio n. Detection of SARS-CoV-2 RNA may be affected bysample collection methods, storage conditions, and/or stageof infection. Viral RNA mutations, vaccinations, antiviraltherapeutics, antibiotics, chemotherapeutic orimmunosuppressant drugs have not been evaluated for effectson detection. Results are for the identification of SARS-CoV-2 RNA usingthe He M2000 System under the FDA Emergency UseAuthorization. The testing is performed by personneltrained in the procedures for the He M2000 moleculardiagnostic SARS-CoV-2 assay in vitro. COVID 19 Asymptomatic IH [id number] 06:43:00* Test Item Value Reference Range Interpretation Comme nts COVID 19 Asymptomatic IH AG (test code = [id number]) NEGATIVE NEGATIVE UR HCG [id number] 17:15:00* Test Item Value Reference Range Interpretation Comme nts UR HCG QUAL (test code = HCGQLU) NEGATIVE NEGATIVE Notes Date/Time Note Provider Source 2023-08-26 08:26:49 Blood specimen obtained from left/right ac, using aseptic technique. 2 attempt was made with a 21 G BD Butterfly needle with Vacutainer attached. Patient tolerated well without complication. Pressure held and site dressed appropriately. Patient instructed to remove the dressing within 45 minutes and to report any undue swelling or bruising at the site. Patient verbalized understanding of above. Monalisa Irvin MA II Monalisa Irvin MA, II [facility] 2023-08-26 08:19:30 Client seen for OnSite Physical. KELLI signed, Allergies and Med Reconciliation reviewed, vitals and waist circumference recorded. Client verbalized understanding and offered no further questions or concerns. Lab Studies ordered and signed, transferred client to lab draw station. Pt has PCP N/A Segundo Lundy LVN [facility] 2022-12-25 10:00:00 Formatting of this n ote might be different from the original. Patient informed of result through Mychart. Rita Richardson MD 12/25/2022 2:39 PM [facility] 2021-04-27 17:36:00 [id number] [facility] [place] [address] PATIENT NAME: JENNIFER SILVER ADMIT DATE: 03/18/21 ACCOUNT NO: [id number] ROOM NO: [facility] [place] AGE: 25 SEX: F ADMITTING PHYSICIAN: Laura Barnes MD ATTENDING PHYSICIAN: Laura Barnes MD ADMISSION DATE: 03/18/2021 DISCHARGE DATE: 03/22/2021 ADMITTING DIAGNOSES: Lua intrauterine at 37 weeks and 4 days with chronic hypertension with superimposed preeclampsia with severe features. HOSPITAL COURSE: The patient was admitted. She received Cytotec followed by Pitocin. She was continued on her home labetalol program and started on magnesium sulfate for seizure prophylaxis. Her labetalol was increased to 200 b.i.d. She had some post-epidural hypotension for which she received ephedrine. She had a prolonged deceleration, which recovered with terbutaline and ephedrine. The patient achieved a dilation of 5 cm, 60% effaced, -2. She remained unchanged for several hours and the decision was made to proceed with primary low transverse delivery. Surgical procedure was uncomplicated with an estimated blood loss of 500 mL. Postoperatively, the patient did well, met all her milestones and by postoperative day #3, was ready for discharge, voiding, passing flatus, tolerating a regular diet with pain control utilizing oral medication. She was placed back on her labetalol 100 mg b.i.d., which was resumed on postoperative day #2. She was given prescriptions for postoperative pain meds and instructed to follow up in 2 weeks given precautions for earlier followup. PROCEDURES: induction of labor and primary low transverse section. FINAL DIAGNOSES: Chronic hypertension Lua intrauterine at 37 weeks and 4 days with superimposed preeclampsia with severe features. Arrest of active phase of labor, delivery via LTCS Dictated By: Laura Barnes MD WT: DS:F.LOWELL/SHIRLEY/ELIU Conf#: [id number]/DID#: [id number] Authenticated and Edited by Laura Arias MD On 04/28/21 1:27:11 PM at 0131 PATIENT NAME: JENNIFER SILVER [facility] 2021-04-01 17:21:00 [id number] [facility] [place] [address] PATIENT NAME: JENNIFER SILVER ADMIT DATE: 03/18/21 ACCOUNT NO: [id number] ROOM NO: [facility] [place] AGE: 25 SEX: F ADMITTING PHYSICIAN: Laura Barnes MD ATTENDING PHYSICIAN: Laura Barnes MD OPERATION DATE: 03/19/2021 PREOPERATIVE DIAGNOSES: Lua intrauterine at 37 weeks and 5 days, complicated by superimposed preeclampsia, chronic hypertension, category 3 heart rate tracing. POSTOPERATIVE DIAGNOSES: Lua intrauterine at 37 weeks and 5 days, complicated by superimposed preeclampsia, chronic hypertension, category 3 heart rate tracing, delivered. PROCEDURE: Primary low transverse section, emergent. ANESTHESIA: Epidural anesthesia. ESTIMATED BLOOD LOSS: 500 mL. URINE OUTPUT: 1000 mL of clear urine. INTRAVENOUS FLUIDS: 800 mL of crystalloid. FINDINGS: Normal uterus, normal bilateral fallopian tubes and ovaries. Clear amniotic fluid, 3-vessel cord, intact placenta. Vigorous female infant in the cephalic presentation, weighing 2450 grams or 5 pounds 6 ounces and Apgars were 8 at 1 minute and 9 at 5 minutes. SURGEON: Laura Barnes MD DECORATING INSPECTOR: LOU Najera. ANESTHESIOLOGIST: Dr. Vásquez. PROCEDURE IN DETAIL: The patient was taken emergently to the operating room due to persistent category 3 tracing, terminal bradycardia. Her epidural was dosed and found to be adequate. She was splashed with Betadine and once adequate anesthesia was confirmed and an abbreviated timeout was undertaken with members of the team in agreement, a Pfannenstiel incision was made and was carried down through the underlying layers with the scalpel. The fascia was nicked in the midline. The fascia was extended bilaterally bluntly. The rectus muscles were in the midline. Peritoneal cavity was entered bluntly. Bladder blade retractor was placed. A low transverse hysterotomy was performed with the scalpel, taking care to avoid any underlying parts. The hysterotomy was extended bluntly. The above described infant was elevated out of the maternal pelvis and delivered through the hysterotomy with fundal pressure. Anterior and PATIENT NAME: JENNIFER SILVER posterior shoulders were reduced. The remainder of the infant's torso was delivered. IV infusion of Pitocin was initiated. The infant was dried, stimulated and bulb suctioned. After a brief delay, the umbilical cord was doubly clamped and cut and the infant was handed off to the awaiting neonatology team. Cord gases were collected. Cord blood specimens were also collected for routine testing. The placenta was expressed and noted to be intact and was handed off for permanent pathology. The uterine fundus was cleared of all clots and debris. The hysterotomy was closed with a running locked suture of 0 Monocryl, second layer of the same suture was used to imbricate the incision. The hysterotomy was noted to be hemostatic. The posterior cul-de-sac was cleared of all clots and debris. The pelvic gutters were cleared of all clots and debris. The hysterotomy was again inspected and noted to be hemostatic. The peritoneum and rectus muscles were reapproximated with a running suture of 2-0 Monocryl. A 2-0 chromic was used to reapproximate the rectus muscle and a small area that had been disrupted during the blunt dissection. The rectus muscles were noted to be hemostatic. The fascia was closed with a running suture of 0 Vicryl. Subcutaneous layer was irrigated and reapproximated with a running suture of 2-0 plain gut. The skin was closed with a subcuticular suture of 4-0 Monocryl and Dermabond. The patient was taken to recovery room in stable condition. The infant went to the full term nursery in stable condition. Other than the urgent nature of the procedure, there were no acute complications. Cord gases, cord blood and placenta were sent to the lab. Dictated By: Laura Barnes MD WT: OP:FANNIE/SHIRLEY/ELIU Conf#: [id number]/DID#: [id number] Authenticated by Laura Arias MD On 04/04/2021 01:10:59 PM at 0110 PATIENT NAME: JENNIFER SILVER [facility] 2021-03-28 13:23:00 [facility]) Discharge Summary REPORT#:[id number] REPORT STATUS: Signed DATE:03/28/21 TIME: 1323 PATIENT: JENNIFER SILVER UNIT #: [id number] ROOM/BED: [address] : [birth year] AGE: 25 SEX: F ATTEND: Laura Barnes MD ADM AUTHOR: Janae Richard * ALL edits or amendments must be made on the electronic/computer document * PCP PCP PCP: PCP: Laura Barnes MD Discharge to: home General Information Problem List/A P: 1. fever 2. Abscess of postoperative wound of abdominal wall Date of admission: Observation Start Date: 03/26/21 Date of admission: 03/26/21 Discharge date: 03/28/21 Admission diagnosis: fever Discharge diagnosis: fever and drainage of abscess and seroma Hospital course: admitted for fever, CT revealed abscess, IR with drainage and abx treatment Consultants: interventional radiology Pt. condition on discharge: improved Allergies: Allergies: No Known Allergies (Coded, 03/11/21) Med Rec PCP PCP: PCP: Laura Barnes MD Med Rec Discharge meds: Stop taking the following medications: HYDROcodone/APAP (NORCO 5/325) 1 TAB TAB 1 TABLET ORAL EVERY 4 HOURS NEEDED. as needed for mod to severe pain Qty = 20 Continue taking these medications: LABETALOL (TRANDATE) 100 MG TAB 100 MILLIGRAM ORAL TWICE DAILY. PNV WITH CA/IRON/FA/DHA (PRENATE ESSENTIAL) 28 MG IRON-1 MG-300 MG CAP 1 CAPSULE ORAL DAILY. IRON/FA/B12/C/DOCUSATE SODIUM (FERRALET 90) 90 MG-1 MG-12 MCG-120 MG-50 MG TAB 1 TABLET ORAL DAILY. ACETAMINOPHEN (TYLENOL) 325 MG TAB 650 MILLIGRAM ORAL EVERY 6 HOURS NEEDED. as needed for PAIN SCALE 1-3 ( USE 2ND) Qty = 60 DOCUSATE SODIUM (COLACE) 100 MG CAP 200 MILLIGRAM ORAL BEDTIME. as needed for constipation Qty = 60 IBUPROFEN (MOTRIN) 800 MG TAB 800 MILLIGRAM ORAL EVERY 8 HR NEEDED. as needed for pain Qty = 40 GABAPENTIN (NEURONTIN) 300 MG CAP 300 MILLIGRAM ORAL THREE TIMES DAILY NEEDED. as needed for burning pain Qty = 90 IBUPROFEN (MOTRIN) 600 MG TAB 600 MILLIGRAM ORAL EVERY 6 HOURS NEEDED. as needed for PAIN SCALE 1-3 ( USE 1ST) Qty = 30 DOCUSATE SODIUM (COLACE) 100 MG CAP 100 MILLIGRAM ORAL TWICE DAILY NEEDED. as needed for CONSTIPATION 3rd CHOICE Qty = 60 HYDROcodone/APAP (NORCO 5/325) 1 TAB TAB 1 TABLET ORAL EVERY FOUR HOURS. as needed for breakthrough pain Qty = 20 Start taking the following new medications: SULFAMETHOXAZOLE/TMP (BACTRIM DS 800/160 MG) 800 MG-160 MG TAB 1 TABLET ORAL TWICE DAILY. Qty = 20 No Refills Objective VS/I O Last Documented: Result Date Time Pulse Ox 98 03/28 1225 B/P 137/93 03/28 1225 B/P Mean 107.8 03/28 1225 Temp 98.8 03/28 1225 Pulse 71 03/28 1225 Resp 18 03/28 1225 O2 Delivery Room air 03/27 1607 24 hour I O ending at 0700: 03/28 0700 03/27 1900 Intake Total 1250.00 350.00 Output Total 65 38 Balance 1185.00 312.00 Intake, IV 450.00 350.00 Intake, Oral 800 Number 1 Bowel Movements Number Voids 2 Output, 65 38 Drainage PATIENT WEIGHT: Weight (lb): Weight (oz): Weight (kg): 99.000 General appearance: alert, awake, oriented Head/Eyes: atraumatic, clear cornea, EOMI, normocephalic, normal conjunctiva/ sclera, normal fundi, normal eyelids/periorb., PERRLA ENT: normal dentition, normal ear left, normal ear right, normal nose, normal pharynx, normal sinus Neck: full range of motion, non-tender, no bruit/NL carotids, no JVD, no lymphadenopathy, no masses or swelling, normal thyroid, supple/no meningismus Breast: symmetrical, no mass Cardiovascular: normal capillary refill, regular rate rhythm Respiratory: clear to auscultation, no distress, no tenderness GI: soft, non-tender, no guarding, no rebound, no distention, no mass/ organomegaly, no pulsatile mass, no hernia, normal abdominal aorta Genitourinary: not indicated Extremities: moves all Musculoskeletal: full range of motion Neuro/STOCK MIXER: alert, oriented X 3 Skin: dry, intact, no gross abnormalities Wound/incision: Location: pfannenstiel healing, drain insertion Site Condition: erythema (improving), dressing clean dry, dressing intact, wound clean dry Results Findings/Data: Laboratory Tests: 03/28 0859 Hematology WBC (6.5 - 12.3 K/mm3) 8.8 RBC (3.51 - 4.69 M/mm3) 4.24 Hgb (10.1 - 13.8 g/dL) 11.0 Hct (32.5 - 41.8 %) 33.7 MCV (84.6 - 96.6 fL) 79.5 L MCH (27.3 - 33.9 pg) 25.9 L MCHC (32.0 - 34.2 gm/dL) 32.6 RDW (12.2 - 16.3 %) 14.3 Plt Count (134 - 363 K/mm3) 326 MPV (9.2 - 12.7 fL) 10.0 Total Counted (#CELLS) 100 Seg Neutrophils % (56.5 - 79.4 %) 73 Lymphocytes % (Manual) (20 - 40 %) 20 Monocytes % (Manual) (0 - 8 %) 4 Eosinophils % (Manual) (0 - 4 %) 3 Platelet Estimate (ADEQ) ADEQUATE Plt Morphology Comment (NORMAL) NORMAL Microcytosis 1+ Results: labs reviewed, vital signs stable Treatments Procedures Lab: Hematology last 24 hrs: 03/28 0859 Hematology WBC (6.5 - 12.3 K/mm3) 8.8 Hgb (10.1 - 13.8 g/dL) 11.0 Hct (32.5 - 41.8 %) 33.7 Plt Count (134 - 363 K/mm3) 326 Imaging: Recent Impressions: RADIOLOGY - XR CHEST 1 V 03/26 1540 Report Impression - Status: SIGNED Entered: 03/26/2021 1601 IMPRESSION: Clear lungs. Impression By: [email or web address] - Samuel Dejesus MD CAT SCAN - CT ABD PELVIS W/CONT 03/26 1706 Report Impression - Status: SIGNED Entered: 03/26/2021 1805 IMPRESSION: 1. Status post with 2 postoperative fluid collections in the anterior abdominal wall. A 9 x 7 x 3 cm gas containing fluid collection is identified within the rectus sheath and a 2.6 x 2.0 x 4.5 cm fluid collection is identified in the subcutaneous fat. 2. No additional acute CT abnormalities of the abdomen or pelvis are detected. SL:131 Impression By: Tony - Miguel Desai MD CAT SCAN - CT PERC DRAIN 03/27 1040 Report Impression - Status: SIGNED Entered: 03/27/2021 1301 IMPRESSION: Placement of 2 abdominal wall drainage catheters without complication. Impression By: [email or web address] - Dell Marley MD Discharge Instructions PCP PCP: PCP: Laura Barnes MD )( Discharge to: Home/Self Care Discharge Instructions Additional Discharge Routines: Attending Follow-Up )( Diet: Regular )( Activity: As Tolerated Prescriptions: e-prescribe Follow-up Appointments Attending Physician: Attending Physician: Laura Barnes MD Attending physician follow up timeframe: In 5 days at 1332 at 1532 RPT #:[id number] END OF REPORT [facility] 2021-03-27 13:09:00 [facility] ([facility]) Gynecology Post Prog Note REPORT#:[id number] REPORT STATUS: Signed DATE:03/27/21 TIME: 1309 PATIENT: JENNIFER SILVER UNIT #: [id number] ROOM/BED: [address] : [birth year] AGE: 25 SEX: F ATTEND: Laura Barnes MD ADM AUTHOR: Laura Barnes MD * ALL edits or amendments must be made on the electronic/computer document * General Post-op: day 8 Status post: emergent LTCS Antibiotics: day 1 (pip/tazo) Subjective Patient reports: Yes: complaints, abdominal pain, ambulating, chills, fever, flatus/bowel movement, pain controlled. No: headache, heartburn, nausea. Review of Systems Constitutional: Reports: chills, fever (yesterday), malaise. Skin: Denies: rash. Respiratory: Denies: SOB, wheezing. Cardiovascular: Denies: chest pain, palpitations. GI: Denies: diarrhea, nausea, vomiting. : Denies: dysuria, urgency. Neuro: Denies: dizziness, focal weakness, headache, lightheaded, numbness, seizure, vision change, weakness. Psych: Reports: stress. Denies: anxiety, depression. Objective General VS/I O: Last Documented: Result Date Time Pulse Ox 96 03/27 1233 B/P 137/90 03/27 1233 B/P Mean 105.4 03/27 1233 Temp 98.8 03/27 1233 Pulse 75 03/27 1233 Resp 18 03/27 1233 O2 Delivery Room air 03/26 1700 24 hour I O ending at 0700: 03/27 0700 03/26 1900 Intake Total Output Total 400 Balance -400 Output, Urine 400 Patient 218 lb Weight Weight Stated/Reported Measurement Method PATIENT WEIGHT: Weight (lb): Weight (oz): Weight (kg): 99.000 Physical Exam General appearance: alert, awake, oriented, no acute distress, pleasant, conversational, mental status normal, no respiratory distress Wound/incision: Location: pfannenstiel Site condition: erythema (at upper edge of incision), odor, edges approximated, no drainage, no ecchymosis, outlined area of erythema HEENT: moist mucosal membranes Cardiovascular: regular rate rhythm, no murmur Respiratory: clear to auscultation, symmetric expansion Abdomen: tenderness (mild at incision), normal bowel sounds, soft, no guarding, no hernia, no rebound Extremities: moves all, no edema Neuro/STOCK MIXER: alert, oriented X 3, normal speech Psychiatry: normal affect, normal judgement/insight, normal mood Genitourinary: no flank pain, no reaves Current Medications Medications: Active Meds + DC'd Last 24 Hrs Lidocaine HCl (XYLOCAINE 1% MDV 20 ML) 20 ML ONCE ONE SUBQ (DC) Labetalol HCl (LABETALOL HCL 200 MG) 200 MG BID PO Hydrocodone Bitart/Acetaminophen (NORCO 5/325 TABLET) 1 TAB Q4H PRN PRN PO Ibuprofen (IBUPROFEN 600 MG TAB) 600 MG Q6H PRN PRN PO (DC) Morphine Sulfate (Morphine Sulfate) 4 MG Q4H PRN PRN IV Ondansetron HCl (ZOFRAN 2 MG/ML 4 MG SYR) 4 MG Q6H PRN PRN IV Piperacillin Sod/Tazobactam Sod (PIPERACILLIN/TAZOBACTAM 3 GM/0.375 GM INJ.) 3.375 GM Q6H IV Sodium Chloride (SODIUM CHLORIDE 0.9% 100 ML ADD-[place]) 100 ML Ibuprofen (IBUPROFEN 600 MG TAB) 600 MG X1ED STA PO (DC) Labetalol HCl (NORMODYNE 100 MG) 100 MG X1ED STA PO (DC) Iopamidol (ISOVUE-300) 100 ML .STK-MED ONE IV (DC) Sodium Chloride (SODIUM CHLORIDE 0.9% - 50 ML) 50 ML .STK-MED ONE IV (DC ) Sodium Chloride (SODIUM CHLORIDE 0.9% - 1000 ML) 2,970 ML X1ED ONE IV ( DC) Piperacillin Sod/Tazobactam Sod (PIPERACILLIN/TAZOBACTAM 3 GM/0.375 GM INJ.) 3.375 GM X1ED STA IV (DC) Sodium Chloride (SODIUM CHLORIDE 0.9% 100 ML ADD-[place]) 100 ML Acetaminophen (TYLENOL EXTRA STRENGTH) 1,000 MG X1ED STA PO (DC) Results Findings/Data: Laboratory Tests 03/26 151 Chemistry Sodium (135 - 145 mEq/L) 138 Potassium (3.5 - 5.0 mEq/L) 3.7 Chloride (100 - 115 mEq/L) 101 Carbon Dioxide (22 - 31 mEq/L) 26 Anion Gap (10 - 20) 15.20 BUN (7 - 18 mg/dL) 13 Creatinine (0.5 - 1.0 mg/dL) 0.8 Glomerular Filtr Rate (>60 ml/min) 86 Glucose (65 - 110 mg/dL) 128 H Lactic Acid (0.5 - 2.2 MMOL/L) 1.2 Calcium (8.4 - 10.2 mg/dL) 9.2 Total Bilirubin (0.2 - 1.0 mg/dL) 0.3 Direct Bilirubin (<0.2 mg/dL) 0.1 AST (15 - 37 units/L) 30 ALT (12 - 78 units/L) 38 Total Alk Phosphatase (46 - 116 units/L) 118 H Total Protein (6.3 - 8.2 gm/dL) 7.5 Albumin (3.4 - 4.8 gm/dL) 2.7 L Lipase (73 - 393 units/L) 125 Laboratory Tests 03/26 2032 Coagulation PT (10.1 - 12.3 secs) 11.8 PTT (Patrick) (22 - 38 secs) 32.5 Laboratory Tests 03/26 1515 Hematology WBC (6.5 - 12.3 K/mm3) 11.8 RBC (3.51 - 4.69 M/mm3) 4.79 H Hgb (10.1 - 13.8 g/dL) 12.4 Hct (32.5 - 41.8 %) 38.2 MCV (84.6 - 96.6 fL) 79.7 L MCH (27.3 - 33.9 pg) 25.9 L MCHC (32.0 - 34.2 gm/dL) 32.5 RDW (12.2 - 16.3 %) 14.1 Plt Count (134 - 363 K/mm3) 383 H MPV (9.2 - 12.7 fL) 10.0 Neut % (Auto) (57.9 - 77.3 %) 79.9 H Lymph % (Auto) (14.5 - 29.7 %) 12.4 L [place] % (Auto) (3.6 - 10.2 %) 5.3 Eos % (Auto) (0.0 - 3.0 %) 1.4 Baso % (Auto) (0.1 - 0.9 %) 0.3 Neut # (Auto) (K/mm3) 9.4 Lymph # (Auto) (K/mm3) 1.5 Summers # (Auto) (K/mm3) 0.6 Eos # (Auto) (K/mm3) 0.16 Baso # (Auto) (K/mm3) 0.0 Laboratory Tests 03/26 161 Serology SARS-CoV-2 Ag (Rapid) (NEGATIVE) NEGATIVE Laboratory Tests 03/26 183 Urines Urine Color (YELLOW) YELLOW Urine Appearance (CLEAR) CLEAR Urine pH (5 - 9) 6.0 Ur Specific [place] (1.001 - 1.035) 1.032 Urine Protein (NEG) NEGATIVE Urine Glucose (UA) (NEG) NEGATIVE Urine Ketones (NEG) NEGATIVE Urine Blood (NEG) 2+ H Urine Nitrite (NEG) NEG Urine Bilirubin (NEG) NEGATIVE Urine Urobilinogen (NEG mg/dL) NEGATIVE Ur Leukocyte Esterase (NEG) NEG Urine RBC (NONE SEEN #/hpf) 11-15 H Urine WBC (NONE SEEN #/hpf) 3-5 H Ur Epithelial Cells (RARE - FEW #/HPF) RARE Urine Mucus (NONE SEEN) RARE Microbiology Date/Time Procedure - Status Source Growth 03/26 161 Influenza Virus Type B Antigen - COMP NASOPHARG 03/26 161 Influenza Virus Type A Antigen - COMP NASOPHARG Radiology data: Recent Impressions: RADIOLOGY - XR CHEST 1 V 03/26 1540 Report Impression - Status: SIGNED Entered: 03/26/2021 1601 IMPRESSION: Clear lungs. Impression By: Lazara Dejesus MD CAT SCAN - CT ABD PELVIS W/CONT 03/26 1706 Report Impression - Status: SIGNED Entered: 03/26/2021 1805 IMPRESSION: 1. Status post with 2 postoperative fluid collections in the anterior abdominal wall. A 9 x 7 x 3 cm gas containing fluid collection is identified within the rectus sheath and a 2.6 x 2.0 x 4.5 cm fluid collection is identified in the subcutaneous fat. 2. No additional acute CT abnormalities of the abdomen or pelvis are detected. SL:131 Impression By: Tony - Miguel Desai MD CAT SCAN - CT PERC DRAIN 03/27 1040 Report Impression - Status: SIGNED Entered: 03/27/2021 1301 IMPRESSION: Placement of 2 abdominal wall drainage catheters without complication. Impression By: [email or web address] - Dell Marley MD Results: labs reviewed, vital signs stable, CT results reviewed, urine, blood and abcess cultures pending (urine and blood NGTD) gram stains still pending Diagnosis, Assessment Plan Problem List/A P: 1. fever 2. Abscess of postoperative wound of abdominal wall Free Text A P: s/p CT guided drainage of both fluid collections (subcutaneous and rectus sheath ) Tmax 99.8 F on admission continue IV abx - monitor drain output support Orders: Procedure Date/time Status Regular Diet - 4Yrs Old Up 03/27 L Active CULTURE BODY FLUID 03/27 1108 Active CULTURE ANAEROBIC 03/27 1108 Active Consultants: interventional radiology at 1406 RPT #:[id number] END OF REPORT [facility] 2021-03-26 20:50:00 [facility] ([facility]) DT History Physical REPORT#:[id number] REPORT STATUS: Signed DATE:03/26/21 TIME: 2049 PATIENT: JENNIFER SILVER UNIT #: [id number] ROOM/BED: [address] : [birth year] AGE: 25 SEX: F ATTEND: Laura Barnes MD ADM AUTHOR: Mireya Magana MD * ALL edits or amendments must be made on the electronic/computer document * History Physical History Physical HPI: 25y/o P1001 s/p emergent pLTCS due to NRFHT one week ago presented to ED w/ fever. She reports waking up this morning with chills and sweats, took her temperature at home and it was 101.6F, repeat temp 101.3. She denies any other associated symptoms. Has had persistent "burning sensation" in area adjacent to right side of incision since delivery, and has noticed a pressure-like sensation in the abdominal wall superior to incision. Otherwise denies urinary symptoms, cough, sore throat, vomiting, or diarrhea. Having regular bowel movements w/ daily stool softeners. Of note, pt was induced for superimposed preeclampsia, reports BPs well controlled at home on labetalol. Past Medical Hx: CHTN Past Surgical Hx: CS x1, cardiac catheterization (normal findings per pt) Social Hx: denies illicit drug use Family Hx: reviewed and not pertinent Allergies: NKDA Medications: PNV, ibuprofen PRN, norco PRN, gabapentin, labetalol 200mg BID Physical Exam: VS: Temp 98.4-99.6, HR 104, BP 147/69 Gen: NAD Pulm: respirations non-labored Abd: soft, non-distended, no rebound or guarding, incision dry and intact w/ well-approximated edges, slight induration superior to left edge of incision, mild TTP superior to incision Ext: trace edema (symmetric), no erythema or tenderness Imaging: CT Abd/Pelvis: IMPRESSION: 1. Status post with 2 postoperative fluid collections in the anterior abdominal wall. A 9 x 7 x 3 cm gas containing fluid collection is identified within the rectus sheath and a 2.6 x 2.0 x 4.5 cm fluid collection is identified in the subcutaneous fat. 2. No additional acute CT abnormalities of the abdomen or pelvis are detected. Assessment/Plan: 25y/o P1001 w/ post-operative rectus sheath hematoma/abscess. -Discussed case w/ IR on-call Dr. Pennington, and images reviewed. Will plan for CT -guided drainage of rectus sheath hematoma tomorrow (pt currently stable, does not require emergent intervention). -NPO after midnight, IVF ordered. -s/p IV Zosyn x1 in ED, will continue until procedure. -Pre-op PT/INR ordered per IR request. -HTN: continue labetalol 200mg BID. at 1915 RPT #:[id number] END OF REPORT [facility] 2021-03-26 18:42:00 [facility] ([facility]) EMERGENCY PROVIDER REPORT REPORT#:[id number] REPORT STATUS: Signed DATE:03/26/21 TIME: 1841 PATIENT: JENNIFER SILVER UNIT #: [id number] ROOM/BED: 2600-A AGE: 25 SEX: F PCP PHYS: Laura Barnes MD SERVICE AUTHOR: Indira Doty MD * ALL edits or amendments must be made on the electronic/computer document * HPI-Fever General Initial Greet Date/Time 03/26/21 1508 Presentation Chief Complaint Fever, recent Hx Obtained From Patient )( Onset Occurred Today Free Text HPI Notes Free Text HPI Notes 25-year-old female 7 days delivery on 03/19/2021 presents with fever with onset today. Patient reports T-max 101.7 today. Patient took ibuprofen at 12 noon. Patient denies wound drainage or discharge, breast pain, diarrhea, sore throat, cough, shortness of breath, chest pain. Patient is breast-feeding. Review of Systems ROS Statements All systems rev neg except as marked. Focused Review of Systems Constitutional Reports: Fever. Ears/Nose/Throat Denies: Earache bilat, Sore throat. Respiratory Denies: Cough, productive, Shortness of breath. Cardiovascular Denies: Chest pain. GI Reports: Abdominal pain (post ). Denies: Nausea, Vomiting. Musculoskeletal Denies: Back pain, Extremity pain, Extremity swelling. Neurologic Denies: Focal weakness, Generalized weakness, Headache, Lightheaded. Past Medical History - Adult Stated Complaint PP FEVER Allergies Coded Allergies: No Known Allergies (03/11/21) Home Medications Active Scripts ACETAMINOPHEN (TYLENOL) 650 MG PO Q6H PRN PRN PAIN SCALE 1-3 (USE 2ND) ACETAMINOPHEN (TYLENOL) 650 MG PO Q6H PRN PRN PAIN SCALE 1-3 (USE 2ND) #60 TAB Prov: 03/19/21 DOCUSATE SODIUM (COLACE) 200 MG PO BEDTIME PRN constipation DOCUSATE SODIUM (COLACE) 200 MG PO BEDTIME PRN constipation #60 CAP Prov: 03/19/21 IBUPROFEN (MOTRIN) 800 MG PO Q8H PRN PRN pain IBUPROFEN (MOTRIN) 800 MG PO Q8H PRN PRN pain #40 TABS Ref 1 Prov: 03/19/21 GABAPENTIN (NEURONTIN) 300 MG PO TID PRN PRN burning pain GABAPENTIN (NEURONTIN) 300 MG PO TID PRN PRN burning pain #90 CAP Prov: 03/22/21 IBUPROFEN (MOTRIN) 600 MG PO Q6H PRN PRN PAIN SCALE 1-3 (USE 1ST) IBUPROFEN (MOTRIN) 600 MG PO Q6H PRN PRN PAIN SCALE 1-3 (USE 1ST) #30 TAB Prov: 03/22/21 DOCUSATE SODIUM (COLACE) 100 MG PO BID PRN PRN CONSTIPATION 3rd CHOICE DOCUSATE SODIUM (COLACE) 100 MG PO BID PRN PRN CONSTIPATION 3rd CHOICE #60 CAP Prov: 03/22/21 HYDROcodone/APAP (NORCO 5/325) 1 TAB PO Q4H PRN breakthrough pain HYDROcodone/APAP (NORCO 5/325) 1 TAB PO Q4H PRN breakthrough pain #20 TABS Prov: 03/22/21 Reported Medications LABETALOL (TRANDATE) 100 MG PO BID PNV WITH CA/IRON/FA/DHA (PRENATE ESSENTIAL) 1 CAP PO DAILY IRON/FA/B12/C/DOCUSATE SODIUM (FERRALET 90) 1 TAB PO DAILY Physical Exam Vital Signs Vital Signs First Documented: Result Date Time Pulse Ox 99 03/26 1510 B/P 136/91 03/26 151 B/P Mean 106 03/26 151 O2 Delivery Room air 03/26 151 Temp 99.6 03/26 151 Pulse 125 03/26 1510 Resp 18 03/26 1510 Last Documented: Result Date Time Pulse Ox 98 03/26 1930 B/P 141/79 03/26 1930 B/P Mean 99 03/26 1930 Temp 98.4 03/26 1930 Pulse 86 03/26 1930 Resp 18 03/26 1930 O2 Delivery Room air 03/26 170 Review of Vital Signs Reviewed Focused PE General/Const General/Const Awake, Alert, No acute distress, Well appearing, Well developed , Well hydrated, Well nourished, Cooperative, Not toxic appearing MS Head Head Atraumatic, Normocephalic Eyes Eyes Atraumatic, No periorbital redness, No periorbital swelling, Conjunctiva NL Ears/Nose/Throat Ears/Nose/Throat Atraumatic, Airway patent, Mucous membranes moist, Pharynx NL, Tympanic membs NL, Ext aud canal NL, Mastoid area NL, Nose exam NL, No sinus tenderness, No facial swelling MS Neck Neck Atraumatic, Supple, No meningismus, Full range of motion, No adenopathy, No swelling, Non-tender Resp/Chest Respiratory/Chest Atraumatic, Breath sounds NL, Breath sounds = bilat, No respiratory distress, No rales, No rhonchi Text/Dict Notes Breast without tenderness or erythema Cardiovascular Cardiovascular Regular rhythm, Heart sounds NL Text/Dict Notes tachycardic Abdomen/GI Abdomen/GI Soft Text/Dict Notes mild tenderness along transverse suprapubic incision wound without discharge, clean, dry and intact; large linear area just superior to incision wound MS Back Back Atraumatic, Inspection NL, No CVA tenderness Skin Skin Atraumatic, Color NL, No rash, Warm, Dry Neurologic Neurologic Oriented X3, Speech NL, CN II - XII intact, Gait NL Interpretation Diagnostics Lab Results Interpretation Results Laboratory Tests 03/26/21 1515: [Embedded Image Not Available] Laboratory Tests: 03/26 03/26 03/26 03/26 1832 1618 1515 1515 Chemistry Sodium (135 - 145 mEq/L) 138 Potassium (3.5 - 5.0 mEq/L) 3.7 Chloride (100 - 115 mEq/L) 101 Carbon Dioxide (22 - 31 mEq/L) 26 Anion Gap (10 - 20) 15.20 BUN (7 - 18 mg/dL) 13 Creatinine (0.5 - 1.0 mg/dL) 0.8 Glomerular Filtr Rate (>60 ml/min) 86 Glucose (65 - 110 mg/dL) 128 H Lactic Acid (0.5 - 2.2 MMOL/L) 1.2 Calcium (8.4 - 10.2 mg/dL) 9.2 Total Bilirubin (0.2 - 1.0 mg/dL) 0.3 Direct Bilirubin (<0.2 mg/dL) 0.1 AST (15 - 37 units/L) 30 ALT (12 - 78 units/L) 38 Total Alk Phosphatase (46 - 116 units/L) 118 H Total Protein (6.3 - 8.2 gm/dL) 7.5 Albumin (3.4 - 4.8 gm/dL) 2.7 L Lipase (73 - 393 units/L) 125 Hematology WBC (6.5 - 12.3 K/mm3) 11.8 RBC (3.51 - 4.69 M/mm3) 4.79 H Hgb (10.1 - 13.8 g/dL) 12.4 Hct (32.5 - 41.8 %) 38.2 MCV (84.6 - 96.6 fL) 79.7 L MCH (27.3 - 33.9 pg) 25.9 L MCHC (32.0 - 34.2 gm/dL) 32.5 RDW (12.2 - 16.3 %) 14.1 Plt Count (134 - 363 K/mm3) 383 H MPV (9.2 - 12.7 fL) 10.0 Neut % (Auto) (57.9 - 77.3 %) 79.9 H Lymph % (Auto) (14.5 - 29.7 %) 12.4 L Summers % (Auto) (3.6 - 10.2 %) 5.3 Eos % (Auto) (0.0 - 3.0 %) 1.4 Baso % (Auto) (0.1 - 0.9 %) 0.3 Neut # (Auto) (K/mm3) 9.4 Lymph # (Auto) (K/mm3) 1.5 Summers # (Auto) (K/mm3) 0.6 Eos # (Auto) (K/mm3) 0.16 Baso # (Auto) (K/mm3) 0.0 Serology SARS-CoV-2 Ag (Rapid) (NEGATIVE) NEGATIVE Urines Urine Color (YELLOW) YELLOW Urine Appearance (CLEAR) CLEAR Urine pH (5 - 9) 6.0 Ur Specific [place] (1.001 - 1.035) 1.032 Urine Protein (NEG) NEGATIVE Urine Glucose (UA) (NEG) NEGATIVE Urine Ketones (NEG) NEGATIVE Urine Blood (NEG) 2+ H Urine Nitrite (NEG) NEG Urine Bilirubin (NEG) NEGATIVE Urine Urobilinogen (NEG mg/dL) NEGATIVE Ur Leukocyte Esterase (NEG) NEG Urine RBC (NONE SEEN #/hpf) 11-15 H Urine WBC (NONE SEEN #/hpf) 3-5 H Ur Epithelial Cells (RARE - FEW #/HPF) RARE Urine Mucus (NONE SEEN) RARE Microbiology: Date/Time Procedure - Status Source Growth 03/26 1832 Urine Culture - COMP URINE 03/26 1618 Influenza Virus Type B Antigen - COMP NASOPHARG 03/26 1618 Influenza Virus Type A Antigen - COMP NASOPHARG 03/26 1515 Blood Culture - COMP BLOOD 03/26 1515 Blood Culture Gram Stain - COMP BLOOD 03/26 1515 Blood Culture - COMP BLOOD 03/26 1515 Blood Culture Gram Stain - COMP BLOOD Recent Impressions: RADIOLOGY - XR CHEST 1 V 03/26 1540 Report Impression - Status: SIGNED Entered: 03/26/2021 1601 IMPRESSION: Clear lungs. Impression By: Lazara - Samuel Dejesus MD CAT SCAN - CT ABD PELVIS W/CONT 03/26 1706 Report Impression - Status: SIGNED Entered: 03/26/2021 1805 IMPRESSION: 1. Status post with 2 postoperative fluid collections in the anterior abdominal wall. A 9 x 7 x 3 cm gas containing fluid collection is identified within the rectus sheath and a 2.6 x 2.0 x 4.5 cm fluid collection is identified in the subcutaneous fat. 2. No additional acute CT abnormalities of the abdomen or pelvis are detected. SL:131 Impression By: Tony - Miguel Desai MD Lab Imaging Statement Laboratory radiographic studies reviewed and considered in the medical decision-making. Re-Evaluation MDM ED Course Medication(s) Ordered Medication(s) Ordered: Anti-Infective Agents Sig/Sloane Start time Last Medication Dose Route Stop Time Status Admin Piperacillin Sod/ 3.375 GM X1ED STA 03/26 1525 DC 03/26 Tazobactam Sod IV 03/26 1554 1532 Sodium Chloride 100 ML Cardiovascular Drugs Sig/Sloane Start time Last Medication Dose Route Stop Time Status Admin Labetalol HCl 100 MG X1ED STA 03/26 1841 DC 03/26 PO 03/26 1842 1903 Central Nervous System Agents Sig/Sloane Start time Last Medication Dose Route Stop Time Status Admin Ibuprofen 600 MG X1ED STA 03/26 1859 DC 03/26 PO 03/26 1900 1904 Acetaminophen 1,000 MG X1ED STA 03/26 1524 DC 03/26 PO 03/26 1525 1533 Diagnostic Agents Sig/Sloane Start time Last Medication Dose Route Stop Time Status Admin Iopamidol 100 ML .STK-MED ONE 03/26 1721 DC 03/26 IV 03/26 1722 1721 Electrolytic, Caloric, And Jack Sig/Sloane Start time Last Medication Dose Route Stop Time Status Admin Sodium Chloride 50 ML .STK-MED ONE 03/26 1720 DC 03/26 IV 03/26 1721 1720 Sodium Chloride 2,970 ML X1ED ONE 03/26 1530 DC 03/26 IV 03/26 1531 1532 Patient Discharge Departure Vital Signs/Condition Vital Signs First Documented: Result Date Time Pulse Ox 99 03/26 1510 B/P 136/91 03/26 1510 B/P Mean 106 03/26 1510 O2 Delivery Room air 03/26 1510 Temp 99.6 03/26 1510 Pulse 125 03/26 1510 Resp 18 03/26 1510 Last Documented: Result Date Time Pulse Ox 98 03/26 1930 B/P 141/79 03/26 1930 B/P Mean 99 03/26 1930 Temp 98.4 03/26 1930 Pulse 86 03/26 1930 Resp 18 03/26 1930 O2 Delivery Room air 03/26 1700 All vital signs available at the time of this entry have been reviewed. Condition Stable Clinical Impression Clinical Impression Primary Impression: Intraabdominal fluid collection Secondary Impressions: fever Time of Impression 1912 Disposition Decision Admit Admit Physician Name Laura Barnes MD Admit Physician [employer], School Lunch Monitor Physician Request Time 1912 Request Date 03/26/21 )( Admission Accepts Yes )( Accepted Time 1912 )( Accepted Date 03/26/21 Call Information accepted by Dr Magana on behalf of Dr Barnes Discharge/Care Plan (Auto) Prescriptions Current Visit Scripts SULFAMETHOXAZOLE/TMP (BACTRIM DS 800/160 MG) 1 TAB PO Q12H SULFAMETHOXAZOLE/TMP (BACTRIM DS 800/160 MG) 1 TAB PO Q12H #20 TABS UNTIL FINISHED SULFAMETHOXAZOLE/TMP (BACTRIM DS 800/160 MG) 1 TAB PO BID SULFAMETHOXAZOLE/TMP (BACTRIM DS 800/160 MG) 1 TAB PO BID #20 TABS at 2307 RPT #:[id number] END OF REPORT [facility] 2021-03-22 07:11:00 [facility] ([facility]) OB Postpart Progr Note REPORT#:[id number] REPORT STATUS: Signed DATE:03/22/21 TIME: 0711 PATIENT: JENNIFER SILVER UNIT #: [id number] ROOM/BED: [address] : [address] AGE: 25 SEX: F ATTEND: Laura Barnes MD ADM AUTHOR: Cass Henley DO * ALL edits or amendments must be made on the electronic/computer document * Subjective Subjective Admission EGA: Weeks: 37 Days: 3 EGA at delivery (wks/days): 37 weeks (5d) Status/day: post operative (day 3) Comments: Doing well, reports the gabapentin has helped somewhat with right incisional pain. Didn't get dermaplast to help with pain per pt. Tolerating reg diet, no n/ v. Voiding freely. BPs improved on labetalol 100mg BID. Objective Nursing Documentation Review Nursing data: The data set between the solid lines has been imported from nursing documentation. Any exceptions have been noted below under Provider comments. Feeding preference: Post hemorrhage risk score: Medium Risk for Hemorrhage. Provider comments on imported nursing data: [] General VS: Vital Signs Date Temp Pulse Resp B/P B/P Mean Pulse Ox FiO2 03/21-03/22 98.0-99.0 61-97 - 132-154/59-93 102.0-113.0 97-99 Last Documented: Result Date Time Pulse Ox 97 03/22 402 B/P 132/81 03/22 402 Temp 98.9 03/22 040 Pulse 66 03/22 0402 Resp 17 03/22 040 B/P Mean 102.0 03/21 1640 PATIENT WEIGHT: Weight (lb): 218 Weight (oz): Weight (kg): 98.883 Physical Exam Neuro: Exam: alert, oriented x3, normal speech Abdomen: soft, no abnormal tenderness, no guarding, no rebound tenderness Incision site: well approximated edges, dry, no drainage, no inflammation Uterus: firm, involution appropriate, non-tender Fundus: firm, below the umbilicus, non-tender Lochia: normal Lacerations: Perineal laceration(s): None Lower extremities: Edema: trace Diagnosis, Assessment Plan Diagnosis, Assessment Plan Problem List/A P: 1. Pre-eclampsia superimposed on chronic hypertension Assessment: nml progress, breast feeding w/o diff, chronic hypertension (resumed labetalol on POD#2) Plan: routine care, discharge today, PreE with SF - s/p Mag, BPs nml- mild range, labetalol 100mg BID resumed on POD#2, Incisional pain - improved somewhat with gabapentin, will get dermaplast today as well. Discussed strict precautions at 0713 RPT #:[id number] END OF REPORT [facility] 2021-03-21 09:22:00 [facility] ([facility]) OB Postpart Progr Note REPORT#:[id number] REPORT STATUS: Signed DATE:03/21/21 TIME: 921 PATIENT: JENNIFER SILVER UNIT #: [id number] ROOM/BED: [address] : [address] AGE: 25 SEX: F ATTEND: Laura Barnes MD ADM AUTHOR: Terrance Weinstein MD * ALL edits or amendments must be made on the electronic/computer document * Subjective Subjective Admission EGA: Weeks: 37 Days: 3 EGA at delivery (wks/days): 37 weeks (5d) Status/day: post operative (day 2) Comments: better off of magnesium. worst discomfort is burning pain at the right of her incision- ice packs and binder help. has been working on walking. Objective Nursing Documentation Review Nursing data: The data set between the solid lines has been imported from nursing documentation. Any exceptions have been noted below under Provider comments. Feeding preference: Post hemorrhage risk score: Medium Risk for Hemorrhage. Provider comments on imported nursing data: [] General VS: Vital Signs Date Temp Pulse Resp B/P B/P Mean Pulse Ox FiO2 03/20-03/21 98.5-98.8 67-88 16-18 112-143/62-99 95-99 Last Documented: Result Date Time Pulse Ox 95 03/21 0232 B/P 132/80 03/21 023 Temp 98.5 03/21 0232 Pulse 67 03/21 0232 Resp 16 03/21 0232 B/P Mean 114.0 03/19 1815 PATIENT WEIGHT: Weight (lb): 218 Weight (oz): Weight (kg): 98.883 Physical Exam Neuro: Exam: alert, oriented x3, normal speech Abdomen: soft, no abnormal tenderness, no guarding, no rebound tenderness Incision site: well approximated edges, dry, no drainage, no inflammation Fundus: firm, below the umbilicus, non-tender Lochia: normal Lower extremities: Edema: trace Diagnosis, Assessment Plan Diagnosis, Assessment Plan Problem List/A P: 1. Pre-eclampsia superimposed on chronic hypertension Assessment: nml progress, breast feeding w/o diff, chronic hypertension Plan: routine care, add gabapentin and dermoplast for burning nerve pain. Discussed parameters for resuming her prior labetalol 100mg BID, but would hold for now since yesterday only had one BP in the 140s. Consultation(s): Consultation performed: anesthesia at 0926 RPT #:[id number] END OF REPORT [facility] 2021-03-20 06:38:00 [facility] ([facility]) OB Postpart Progr Note REPORT#:[id number] REPORT STATUS: Signed DATE:03/20/21 TIME: 0638 PATIENT: JENNIFER SILVER UNIT #: [id number] ROOM/BED: [address] : 93 AGE: 25 SEX: F ATTEND: Laura Barnes MD ADM AUTHOR: Cass Hneley DO * ALL edits or amendments must be made on the electronic/computer document * Subjective Subjective Admission EGA: Weeks: 37 Days: 3 EGA at delivery (wks/days): 37 weeks (5d) Status/day: post , post operative (day 1 ) Comments: Doing well, no complaints. Pain well controlled. Tolerating small amt of reg diet. Reaves remains in place, for d/c today. Baby at bedside doing well, breast feeding. Objective Nursing Documentation Review Nursing data: The data set between the solid lines has been imported from nursing documentation. Any exceptions have been noted below under Provider comments. Feeding preference: Post hemorrhage risk score: Medium Risk for Hemorrhage. Provider comments on imported nursing data: [] General VS: Vital Signs Date Temp Pulse Resp B/P B/P Mean Pulse Ox FiO2 03/19-03/20 98.0-99.0 57-97 14-45 93-166/51-97 71.0-116.0 84-100 Last Documented: Result Date Time Pulse Ox 98 03/20 0200 B/P 119/62 03/20 0200 Resp 17 03/20 0200 Pulse 70 03/20 0100 Temp 98.4 03/20 0000 B/P Mean 114.0 03/19 1815 PATIENT WEIGHT: Weight (lb): 218 Weight (oz): Weight (kg): 98.883 Physical Exam Neuro: Exam: alert, oriented x3, normal speech Abdomen: soft, no abnormal tenderness, no guarding, no rebound tenderness Incision site: well approximated edges, dry, no drainage, no inflammation Uterus: firm, involution appropriate, non-tender Fundus: firm, at the umbilicus, non-tender Lochia: normal Lacerations: Perineal laceration(s): None Lower extremities: Edema: 1+ pitting Result Findings/data: Laboratory Tests: 03/19 03/19 1209 1207 Blood Gas Capillary pH (7.35 - 7.45) 7.172 *L 7.078 *L Capillary pCO2 (mmHg) 60.2 79.2 Capillary pO2 (mmHg) 12.3 14.5 Capillary HCO3 (meq/L) 21.6 22.8 Capillary Base Excess -7.8 -9.0 Patient On Oxygen CBLV CBLA FiO2 (%) 21.0 21.0 Diagnosis, Assessment Plan Diagnosis, Assessment Plan Assessment: nml progress, breast feeding w/o diff, chronic hypertension Plan: routine care, continue magnesium sulfate x 24 hr lovenox to start this AM PIH labs in am pending labetalol protocol prn, was on labetalol 100mg BID during , hold at this time given nml BPs Consultation(s): Consultation performed: anesthesia at 0640 RPT #:[id number] END OF REPORT [facility] 2021-03-19 17:44:00 [facility] ([facility]) OB Postpart Progr Note REPORT#:[id number] REPORT STATUS: Signed DATE:03/19/21 TIME: 1744 PATIENT: JENNIFER SILVER UNIT #: [id number] ROOM/BED: [address] : 93 AGE: 25 SEX: F ATTEND: Laura Barnes MD ADM AUTHOR: Laura Barnes MD * ALL edits or amendments must be made on the electronic/computer document * Subjective Subjective Admission EGA: Weeks: 37 Days: 3 EGA at delivery (wks/days): 37 weeks (5d) Status/Day: post operative (d0) Patient reports: Patient reports: Yes no complaints, Yes normal lochia, Yes pain management effective, Yes tolerating po well, No voiding well (still with reaves), No voiding without pain, No tolerating ambulation (due to ambulate), No flatus, No bowel movement, No nausea, No vomiting, No excessive bleeding, No abdominal pain, No perineal pain, No difficulty nursing, No headache, No blurred vision Objective Nursing Documentation Review Nursing Data: The data set between the solid lines has been imported from nursing documentation. Any exceptions have been noted below under Provider comments. Feeding preference: Post hemorrhage risk score: Medium Risk for Hemorrhage. Provider comments on imported nursing data: [] General VS: Vital Signs: Date Time Temp Pulse Resp B/P B/P Pulse O2 O2 Flow FiO2 Mean Ox Delivery Rate 03/19 1515 105.0 03/19 1515 73 25 144/76 97 03/19 1500 95.0 03/19 1500 76 18 136/70 95 03/19 1445 101.0 03/19 1445 77 20 143/76 97 03/19 1435 94.0 03/19 1435 125/73 03/19 1430 80 45 98 03/19 1415 94.0 03/19 1415 80 35 124/72 97 03/19 1400 115.0 03/19 1400 80 28 166/80 96 03/19 1345 110.0 03/19 1345 81 29 158/77 99 03/19 1331 103.0 03/19 1331 152/72 03/19 1330 78 27 99 03/19 1315 85.0 03/19 1315 83 24 130/66 100 03/19 1248 99.0 03/19 1140 76 100 03/19 1136 93.0 03/19 1136 65 119/82 03/19 1135 64 100 03/19 1121 88.0 03/19 1121 80 121/68 03/19 1107 103.0 03/19 1107 98.8 68 134/83 03/19 1102 95 87 03/19 1101 97 90 03/19 1057 68 84 03/19 1051 94.0 03/19 1051 57 126/74 03/19 1036 93.0 03/19 1036 61 125/73 03/19 1021 93.0 03/19 1021 60 125/72 03/19 1006 91.0 03/19 1006 59 122/71 03/19 0951 90.0 03/19 0951 61 123/71 03/19 0937 91.0 03/19 0937 63 127/68 03/19 0921 88.0 03/19 0921 61 120/67 03/19 0910 86 99 03/19 0906 75.0 03/19 0906 98.3 70 14 99/58 03/19 0905 74 96 03/19 0900 71 96 03/19 0855 69 97 03/19 0851 71.0 03/19 0851 63 93/51 03/19 0850 67 97 03/19 0845 68 96 03/19 0840 66 97 03/19 0836 75.0 03/19 0836 68 100/52 03/19 0835 67 97 03/19 0830 68 97 03/19 0825 71 98 03/19 0821 81.0 03/19 0821 68 114/58 03/19 0820 69 98 03/19 0815 71 98 03/19 0810 70 98 03/19 0806 82.0 03/19 0806 73 116/61 03/19 0805 73 98 03/19 0751 86.0 03/19 0751 76 117/65 03/19 0736 100.0 03/19 0736 71 134/78 03/19 0728 98.3 85 16 97 03/19 0723 88 98 03/19 0721 116.0 03/19 0721 81 144/97 03/19 0718 94 97 03/19 0713 83 98 03/19 0708 91 97 03/19 0706 110.0 03/19 0706 86 148/86 03/19 0703 95 97 03/19 0658 92 99 03/19 0653 92 97 03/19 0652 108.0 03/19 0652 81 137/89 03/19 0648 85 98 03/19 0643 82 97 03/19 0638 96 100 03/19 0637 117.0 03/19 0637 88 147/96 03/19 0633 89 100 03/19 0628 76 100 03/19 0623 64 100 03/19 0621 110.0 03/19 0621 73 145/86 03/19 0618 68 100 03/19 0613 66 100 03/19 0608 81 98 03/19 0606 105.0 03/19 0606 68 141/86 03/19 0603 63 97 03/19 0558 73 96 03/19 0553 71 96 03/19 0551 89.0 03/19 0551 76 119/69 03/19 0548 76 96 03/19 0543 79 97 03/19 0538 71 98 03/19 0536 89.0 03/19 0536 75 120/70 03/19 0533 66 97 03/19 0528 67 97 03/19 0523 72 97 03/19 0522 92.0 03/19 0522 66 123/71 03/19 0518 68 96 03/19 0513 70 96 03/19 0508 78 97 03/19 0507 96.0 03/19 0507 79 127/75 03/19 0503 86 97 03/19 0458 77 98 03/19 0453 85 98 03/19 0451 100.0 03/19 0451 88 129/83 03/19 0448 80 98 03/19 0443 72 97 03/19 0438 71 97 03/19 0436 97.0 03/19 0436 80 127/77 03/19 0433 77 97 03/19 0428 82 97 03/19 0423 80 97 03/19 0421 106.0 03/19 0421 83 135/85 03/19 0418 97 99 03/19 0413 78 97 03/19 0408 75 99 03/19 0406 94.0 03/19 0406 74 125/74 03/19 0403 72 96 03/19 0358 64 95 03/19 0353 62 96 03/19 0351 89.0 03/19 0351 64 116/71 03/19 0348 66 96 03/19 0343 107 98 03/19 0338 80 96 03/19 0336 97.0 03/19 0336 78 131/76 03/19 0333 84 96 03/19 0328 69 97 03/19 0323 71 96 03/19 0321 85.0 03/19 0321 81 148/58 03/19 0320 97.9 91 18 89 03/19 0318 62 95 03/19 0313 66 96 03/19 0308 63 95 03/19 0306 81.0 03/19 0306 71 114/61 03/19 0303 63 94 03/19 0258 60 95 03/19 0253 64 95 03/19 0251 88.0 03/19 0251 64 122/66 03/19 0248 64 95 03/19 0243 64 95 03/19 0238 64 95 03/19 0236 92.0 03/19 0236 68 126/72 03/19 0233 63 95 03/19 0228 61 94 03/19 0223 61 95 03/19 0221 100.0 03/19 0221 69 136/75 03/19 0218 65 96 03/19 0213 66 95 03/19 0208 65 96 03/19 0203 73 97 03/19 0158 81 97 03/19 0153 64 94 03/19 0151 86.0 03/19 0151 67 119/65 03/19 0148 63 94 03/19 0143 62 94 03/19 0138 62 94 03/19 0136 88.0 03/19 0136 60 122/67 03/19 0133 62 94 03/19 0128 62 94 03/19 0123 61 95 03/19 0118 66 94 03/19 0116 94.0 03/19 0116 74 135/71 03/19 0113 69 94 03/19 0112 71.0 03/19 0112 78 106/55 03/19 0108 68 93 03/19 0103 69 94 03/19 0058 70 94 03/19 0057 74.0 03/19 0057 80 100/57 03/19 0053 70 94 03/19 0048 96.0 03/19 0048 98.0 81 16 145/71 98 03/19 0043 70 94 03/19 0041 78.0 03/19 0041 71 106/55 03/19 0038 71 95 03/19 0033 91 96 03/19 0028 90 96 03/19 0026 83.0 03/19 0026 101 115/58 03/19 0023 85 97 03/19 0018 91 98 03/19 0013 81 100 03/19 0012 83.0 03/19 0012 93 109/58 03/19 0008 72 98 03/19 0003 75 99 03/18 2358 69 98 03/18 2353 75 99 03/18 2351 79.0 03/18 2351 68 115/56 03/18 2348 71 100 03/18 2346 80.0 03/18 2346 78 117/57 03/18 2343 74 100 03/18 2342 80.0 03/18 2342 79 118/55 03/18 2341 82.0 03/18 2341 72 116/58 03/18 2338 79.0 03/18 2338 84 119/58 96 03/18 2335 66.0 03/18 2335 81 101/54 03/18 2327 82.0 03/18 2327 76 119/60 03/18 2317 108.0 03/18 2317 77 141/85 03/18 2300 67 97 03/18 2245 55 97 03/18 2240 60 100 03/18 2235 56 97 03/18 2234 141.0 03/18 2234 56 180/114 03/18 2230 56 98 03/18 2229 142.0 03/18 2229 58 185/106 03/18 2225 55 96 03/18 2220 58 98 03/18 2215 59 100 03/18 2210 64 98 03/18 2205 61 98 03/18 2200 55 98 03/18 2157 126.0 03/18 2157 56 170/94 03/18 2155 55 100 03/18 2152 135.0 03/18 2152 56 181/106 03/18 2150 57 100 03/18 2147 129.0 03/18 2147 56 173/100 03/18 2145 55 96 03/18 2142 144.0 03/18 2142 55 194/106 03/18 2140 56 98 03/18 2135 59 98 03/18 2131 137.0 03/18 2131 54 188/96 03/18 2130 59 99 03/18 2129 144.0 03/18 2129 56 192/109 03/18 2125 54 96 03/18 2120 58 97 03/18 2115 65 98 03/18 2110 56 98 03/18 2105 61 98 03/18 210 112.0 03/18 2102 98.2 61 16 143/88 03/18 2100 59 96 03/18 2032 116.0 03/18 203 95 149/96 03/18 2030 109.0 11/23 2030 74 140/90 03/18 2009 67 97 03/18 2004 58 98 03/18 1959 55 97 03/18 1954 65 98 03/18 1949 58 96 03/18 1944 59 97 03/18 1929 142.0 03/18 1929 60 191/105 03/18 1926 122.0 03/18 1926 61 185/85 03/18 191 67 97 03/18 1907 65 97 03/18 1902 67 97 03/18 185 67 97 03/18 1855 108.0 03/18 1855 73 139/85 03/18 1852 69 96 03/18 1847 68 99 03/18 1842 79 100 03/18 1841 98.4 18 03/18 1837 98.0 69 98 03/18 1832 66 98 03/18 1827 73 100 03/18 1825 108.0 03/18 1825 66 139/85 03/18 1822 67 99 03/18 1817 73 99 03/18 1812 69 99 03/18 1805 72 99 03/18 1800 68 99 03/18 1755 117.0 03/18 1755 71 143/99 99 03/18 1750 70 98 PATIENT WEIGHT: Weight (lb): 218 Weight (oz): Weight (kg): 98.883 Physical Exam Breasts: Breasts: non-tender, soft Cardiac: normal sinus rhythm, no clinically sig murmur Lungs: clear to auscultation Neuro: Exam: alert, oriented x3, normal speech Abdomen: soft, no abnormal tenderness, no guarding, no rebound tenderness, normoactive bowel sounds Incision site: well approximated edges, dry, no drainage, no inflammation Uterus: firm, tender, involution appropriate Fundus: firm, below the umbilicus, non-tender Lochia: normal Lacerations: Perineal laceration(s): None Lower extremities: Edema: 1+ pitting Calf tenderness: negative Result Findings/Data: Laboratory Tests: 03/19 03/19 03/19 1209 1207 0202 Blood Gas Capillary pH (7.35 - 7.45) 7.172 *L 7.078 *L Capillary pCO2 (mmHg) 60.2 79.2 Capillary pO2 (mmHg) 12.3 14.5 Capillary HCO3 (meq/L) 21.6 22.8 Capillary Base Excess -7.8 -9.0 Patient On Oxygen CBLV CBLA FiO2 (%) 21.0 21.0 Chemistry Magnesium (1.8 - 2.4 mg/dL) 5.4 *H Results: labs reviewed, vitl signs stable Blood Loss Blood loss at delivery: Blood loss at delivery: <1K: no sx hypovol=no hem, no more than expected Cause of the bleeding: Management that was provided: QBL at delivery: EBL at delivery: 500 Diagnosis, Assessment Plan Diagnosis, Assessment Plan Problem List/A P: 1. Hypertension affecting 2. Pre-eclampsia superimposed on chronic hypertension 3. 37 or more completed weeks of gestation Assessment: nml progress, breast feeding w/o diff, chronic hypertension Plan: routine care, continue magnesium sulfate x 24 hr , lovenox to start tomorrow PIH labs in am labetalol protocol prn Consultation(s): Consultation performed: anesthesia at 1749 RPT #:[id number] END OF REPORT [facility] 2021-03-19 13:07:00 [facility] ([facility]) OB Delivery Note REPORT#:[id number] REPORT STATUS: Signed DATE:03/19/21 TIME: 1307 PATIENT: JENNIFER SILVER UNIT #: [id number] ROOM/BED: [address] : [address] AGE: 25 SEX: F ATTEND: Laura Barnes MD ADM AUTHOR: Laura Barnes MD * ALL edits or amendments must be made on the electronic/computer document * OB Delivery Nursing Documentation Review Nursing data: The data set between the solid lines has been imported from nursing documentation. Any exceptions have been noted below under Provider comments. _ ROM date: 03/19/21 ROM time: 0630 Membranes rupture method: AROM Amniotic fluid color: Clear Amniotic fluid amount: Steroids prior to arrival: Antibiotic prophylaxis given: Yes Post hemorrhage risk score: Low Risk for Hemorrhage. Delivery date infant A: 03/19/21 Delivery time infant A: 1152 Birthweight (gm) A: 2450 Weight (lb) A: Weight (oz) infant A: Gender A: Female 1 minute A: 5 minutes A: 10 minutes A: Cord pH obtained A: Vacuum time infant A: Vacuum # pulls infant A: Vacuum # popoffs infant A: QBL at delivery: __ Provider comments on imported nursing data: [] Pre-delivery GBS status: GBS status: negative [place] evaluation at delivery: team Admission EGA: Weeks: 37 Days: 3 EGA at delivery (wks/days): 37 weeks (5d) Admission indication: IOL for superimposed preeclampsia Baby A Information Baby A information Delivery date: 03/19/21 status: live born Wt of baby (grams): 2450 Wt of baby (lbs/oz): 5/6 Gender: female 1 minute: 8 5 minutes: 9 Presentation: vertex ABG details Baby A Cord blood gases: collected Nuchal cord Baby A Nuchal cord: yes (tight,deliv.through) Delivery section indication: category 3 Priority: emergent Decision to incision time: less than 30 mins Antibiotic prior to incision: 1 dose )(SCDs applied activated: Yes Uterine incision: low transverse Consent: indication discussed, questions answered, pt consent to op delivery Mother's condition: mother stable Infant's condition: infant stable in nursery Op/Inv Proc Note - Brief )(Start date: 03/19/2021 )( Procedure(s) performed: prim low transverse c/s, emergency )( Primary Surgeon: Laura Barnes MD )( Cathode Builder(s): Chelsi Lowe MD Anesthesiologist: MD Fahad )( Pre-procedure diagnosis: SIUP @ 37w5d, siPreE, cHTN, cat 3 FHR )( Post-procedure diagnosis: same, delivered )( Technique/Procedure: LTCS Anesthesia: epidural anesthesia )( Estimated blood loss (ml): 500 )( Specimen removed/altered: placenta to pathology )( Complications: none Drain(s): reaves to gravity Tube(s): none Implant(s): none Fluids: 800 cc crystalloid Urine output: 1000 cc crystalloid )( Finding(s): normal uterus normal bilateral fallopian tubes and ovaries clear amniotic fluid 3VC intact placenta vigorous female cephalic Apgars 8/9 Weight 76274y (5lb 6oz) Condition: stable (x 2 to PACU) Blood Loss/Details Blood loss at delivery: <1K: no sx hypovol=no hem, no more than expected EBL at delivery (ml's): 500 at 1750 RPT #:[id number] END OF REPORT [facility] 2021-03-19 09:49:00 [facility] ([facility]) OB Intrapart Prog Note REPORT#:[id number] REPORT STATUS: Signed DATE:03/19/21 TIME: 948 PATIENT: JENNIFER SILVER UNIT #: [id number] ROOM/BED: [address] : [address] AGE: 25 SEX: F ATTEND: Laura Barnes MD ADM AUTHOR: Laura Barnes MD * ALL edits or amendments must be made on the electronic/computer document * Subjective Subjective Admission EGA (wks/days): 37 weeks (4d) Patient reports: Patient reports: Yes leaking fluid, Yes contractions, Yes normal movement, Yes comfortable with epidural, No complaints, No abdominal pain, No vaginal bleeding , No headache, No blurred vision, No scotomata, No fever, No chills, No shortness of breath, No new complaints Objective Nursing Documentation Review Nursing data: The data set between the solid lines has been imported from nursing documentation. Any exceptions have been noted below under Provider comments. __ ROM date: ROM time: __ Provider comments on imported nursing data: [] General VS: Last Documented: Result Date Time Pulse Ox 97 03/19 0855 Pulse 69 03/19 0855 B/P Mean 71.0 03/19 0851 B/P 93/51 03/19 0851 Temp 98.3 03/19 0728 Resp 16 03/19 0728 Vital Signs Date Temp Pulse Resp B/P B/P Mean Pulse Ox FiO2 03/18-03/19 97.9-98.9 54-107 16-18 93-194/51-114 66.0-144.0 89-100 PATIENT WEIGHT: Weight (lb): 218 Weight (oz): Weight (kg): 98.883 Objective Cervical/ exam: Dilatation (cm): /-2 - exam by me at 0640 (by Dr. Barnes at 1915) Effacement (%): 50 station: - 3 presentation: cephalic Pelvis exam: Clinically adequate for this fetus: yes Uterine activity: Monitor: toco Frequency (description): regular Frequency (minutes): 3 Current oxytocin: Indication: induction Procedures: artificial rupture memb (clear fluid), intrauterine press cath, vaginal exam FHR Evaluation Baby A: Baby A baseline: 130 bpm Baby A variability: moderate 6-25 bpm Baby A accelerations: 10 X 10 Baby A decelerations: late (occasional, non-recurrent) Baby A FHR category: category 2 (overall reassuring) Baby A notes: decreased variability after pt medicated with Nubain for second attempt at Cook balloon Result Findings/Data: Laboratory Tests: 03/19 202 Chemistry Magnesium (1.8 - 2.4 mg/dL) 5.4 *H Diagnosis, Assessment Plan Problem List/A P: 1. Hypertension affecting 2. Pre-eclampsia superimposed on chronic hypertension 3. 37 or more completed weeks of gestation Assessment: latent phase labor, stable, doing well, pre-eclampsia (labetalol increased to 200 BID) Plan: anticipate vag delivery, continue current managmnt, continue labor induction, intrauterine resuscitatn (PRN), anesthesia consult (PRN (epidural in place)) at 1751 RPT #:[id number] END OF REPORT [facility] 2021-03-19 06:49:00 [facility] ([facility]) OB Intrapart Prog Note REPORT#:[id number] REPORT STATUS: Signed DATE:03/19/21 TIME: 0649 PATIENT: JENNIFER SILVER UNIT #: [id number] ROOM/BED: [address] : 93 AGE: 25 SEX: F ATTEND: Laura Barnes MD ADM AUTHOR: Mireya Magana MD * ALL edits or amendments must be made on the electronic/computer document * Subjective Subjective Admission EGA (wks/days): 37 weeks (4d) Patient reports: Comments: Feels well s/p epidural. Denies symptoms of preeclampsia. Objective Nursing Documentation Review Nursing data: The data set between the solid lines has been imported from nursing documentation. Any exceptions have been noted below under Provider comments. __ ROM date: ROM time: __ Provider comments on imported nursing data: [] General VS: Last Documented: Result Date Time Pulse Ox 96 03/19 0558 Pulse 73 03/19 0558 B/P Mean 89.0 03/19 0551 B/P 119/69 03/19 0551 Temp 97.9 03/19 0320 Resp 18 03/19 0320 Vital Signs Date Temp Pulse Resp B/P B/P Mean Pulse Ox FiO2 03/18-03/19 97.9-98.9 54-107 16-19 100-194/54-11 66.0-144.0 89-100 4 PATIENT WEIGHT: Weight (lb): 218 Weight (oz): Weight (kg): 98.883 Objective Cervical/ exam: Dilatation (cm): 60/-2 - exam by me at 0640 (by Dr. Barnes at 1915) presentation: cephalic Uterine activity: Monitor: toco Frequency (description): difficult to assess w/ external monitor Procedures: artificial rupture memb (clear fluid), intrauterine press cath, vaginal exam FHR Evaluation Baby A: Baby A baseline: 130 bpm Baby A variability: moderate 6-25 bpm Baby A accelerations: 10 X 10 Baby A decelerations: late (occasional, non-recurrent) Baby A FHR category: category 2 (overall reassuring) Diagnosis, Assessment Plan Assessment: latent phase labor, stable, doing well, pre-eclampsia (labetalol increased to 200 BID) Plan: anticipate vag delivery, continue current managmnt, continue labor induction, intrauterine resuscitatn (PRN), anesthesia consult (PRN (epidural in place)) at 0653 RPT #:[id number] END OF REPORT [facility] 2021-03-18 23:50:00 [facility] ([facility]) OB Intrapart Prog Note REPORT#:[id number] REPORT STATUS: Signed DATE:03/18/21 TIME: 2350 PATIENT: JENNIFER SILVER UNIT #: [id number] ROOM/BED: [address] : 93 AGE: 25 SEX: F ATTEND: Laura Barnes MD ADM AUTHOR: Mireya Magana MD * ALL edits or amendments must be made on the electronic/computer document * See Addendum Subjective Subjective Admission EGA (wks/days): 37 weeks (4d) Nursing reports: Comments: Called to bedside for prolonged decel after epidural placement. Objective Nursing Documentation Review Nursing data: The data set between the solid lines has been imported from nursing documentation. Any exceptions have been noted below under Provider comments. __ ROM date: ROM time: __ Provider comments on imported nursing data: [] General VS: Last Documented: Result Date Time Pulse Ox 97 03/18 2245 Pulse 55 03/18 2245 B/P Mean 141.0 03/18 2234 B/P 180/114 03/18 2234 Temp 98.2 03/18 2102 Resp 16 03/18 2102 Vital Signs Date Temp Pulse Resp B/P B/P Mean Pulse Ox FiO2 03/18 98.0-98.9 52-98 16-20 132-194/63-114 91.0-144.0 88-100 PATIENT WEIGHT: Weight (lb): 218 Weight (oz): Weight (kg): 98.883 Objective Cervical/ exam: Dilatation (cm): 2 (by Dr. Barnes at 1915) Uterine activity: Monitor: toco Frequency (description): irregular FHR Evaluation Baby A: Baby A variability: moderate 6-25 bpm Baby A accelerations: 10 X 10 Baby A decelerations: prolonged Baby A FHR category: category 2 (overall reassuring) Diagnosis, Assessment Plan Assessment: latent phase labor, stable, doing well, pre-eclampsia (labetalol increased to 200 BID), post-epidural hypotension treated w/ ephedrine, prolonged deceleration recovered w/ terb x1 and ephedrine Plan: anticipate vag delivery, continue labor induction, anesthesia consult (PRN (epidural in place)) at 3204 Addendum 1: 03/19/21 0143 by Mireya Magnaa MD Notified by nurse that she has been unable to start pitocin as planned due to minimal variability of FHT. FHT reviewed, no decelerations noted. Suspect decreased variability is due to Mg ppx. OK to start pitocin. Will draw Mg level to ensure in therapeutic range. at 0146 RPT #:[id number] END OF REPORT [facility] 2021-03-18 20:26:00 [facility] ([facility]) OB Intrapart Prog Note REPORT#:[id number] REPORT STATUS: Signed DATE:03/18/21 TIME: 2025 PATIENT: JENNIFER SILVER UNIT #: [id number] [facility] AGE: 25 SEX: F ATTEND: Laura Barnes MD ADM AUTHOR: Laura Barnes MD * ALL edits or amendments must be made on the electronic/computer document * Subjective Subjective Admission EGA (wks/days): 37 weeks (4d) Patient reports: Patient reports: Yes contractions (mild cramping), Yes normal movement, Yes coping well w/o pain meds, No complaints, No abdominal pain, No vaginal bleeding, No leaking fluid, No headache, No blurred vision, No scotomata, No fever, No chills, No shortness of breath, No new complaints Objective Nursing Documentation Review Nursing data: The data set between the solid lines has been imported from nursing documentation. Any exceptions have been noted below under Provider comments. __ ROM date: ROM time: __ Provider comments on imported nursing data: [] General VS: Last Documented: Result Date Time Pulse Ox 97 03/18 1959 Pulse 55 03/18 1959 B/P Mean 142.0 03/18 1929 B/P 191/105 03/18 1929 Temp 98.4 03/18 1841 Resp 18 03/18 1841 Vital Signs Date Temp Pulse Resp B/P B/P Mean Pulse Ox FiO2 03/18 98.0-98.9 52-98 16-20 132-191/63-105 91.0-142.0 88-100 PATIENT WEIGHT: Weight (lb): 218 Weight (oz): Weight (kg): 98.883 Objective Cervical/ exam: Dilatation (cm): 2 Effacement (%): 50 station: - 3 presentation: cephalic Pelvis exam: Clinically adequate for this fetus: yes Uterine activity: Monitor: toco Frequency (description): irregular Frequency (minutes): 3 Current oxytocin: Indication: induction (s/p cytotec x 4 doses) Procedures: induction of labor, vaginal exam, cook balloon placed with 80/80 cc FHR Evaluation Baby A: Baby A baseline: 125 bpm Baby A variability: moderate 6-25 bpm Baby A accelerations: 15 X 15 Baby A decelerations: none Baby A FHR category: category 1 Baby A notes: decreased variability after pt medicated with Nubain for second attempt at Cook balloon Result Findings/Data: Laboratory Tests: 03/18 03/18 03/18 0044 0018 0013 Chemistry Creatinine (0.5 - 1.0 mg/dL) 0.5 AST (15 - 37 units/L) 64 H ALT (12 - 78 units/L) 21 Lactate Dehydrogenase (81 - 234 units/L) 554 H Hematology WBC (6.5 - 12.3 K/mm3) 10.5 RBC (3.51 - 4.69 M/mm3) 4.99 H Hgb (10.1 - 13.8 g/dL) 13.1 Hct (32.5 - 41.8 %) 39.2 MCV (84.6 - 96.6 fL) 78.6 L MCH (27.3 - 33.9 pg) 26.3 L MCHC (32.0 - 34.2 gm/dL) 33.4 RDW (12.2 - 16.3 %) 15.6 Plt Count (134 - 363 K/mm3) 244 MPV (9.2 - 12.7 fL) 12.1 Neut % (Auto) (57.9 - 77.3 %) 61.3 Lymph % (Auto) (14.5 - 29.7 %) 28.9 Summers % (Auto) (3.6 - 10.2 %) 8.0 Eos % (Auto) (0.0 - 3.0 %) 1.0 Baso % (Auto) (0.1 - 0.9 %) 0.3 Neut # (Auto) (K/mm3) 6.4 Lymph # (Auto) (K/mm3) 3.0 Summers # (Auto) (K/mm3) 0.8 Eos # (Auto) (K/mm3) 0.11 Baso # (Auto) (K/mm3) 0.0 Serology Treponema pallidum Ab (NONREACTIVE) NONREACTIVE Hep Bs Antigen (NONREACTIVE) NONREACTIVE Hepatitis C Antibody (NONREACTIVE) NONREACTIVE Hep C Ab Signal/Cutoff (<0.80) <0.02 HIV 1 2 Antibody (NONREACTIVE) NONREACTIVE SARS-CoV-2 Ag (Rapid) (NEGATIVE) NEGATIVE Urines Ur Random Creatinine (mg/dL) 12.1 U Random Total Protein (mg/dL) 8.9 Protein/Creatinin Ratio (<200 mg/gcrea) 735.5 H Diagnosis, Assessment Plan Problem List/A P: 1. Hypertension affecting 2. Pre-eclampsia superimposed on chronic hypertension 3. 37 or more completed weeks of gestation Assessment: normal FHR pattern, latent phase labor, stable, doing well, pre- eclampsia (requiring prn IV meds) Plan: anticipate vag delivery, continue labor induction, epidural anesthesia ( prn), anesthesia consult, repeat PIH labs continue scheduled labetalol continue prn antihypertensive meds at 2033 RPT #:[id number] END OF REPORT [facility] 2021-03-18 15:55:00 [facility] ([facility]) OB Intrapart Prog Note REPORT#:[id number] REPORT STATUS: Signed DATE:03/18/21 TIME: 1555 PATIENT: JENNIFER SILVER UNIT #: [id number] ROOM/BED: [address] : [address] AGE: 25 SEX: F ATTEND: Laura Barnes MD ADM AUTHOR: Laura Barnes MD * ALL edits or amendments must be made on the electronic/computer document * Subjective Subjective Admission EGA (wks/days): 37 weeks (4d) Patient reports: Patient reports: Yes contractions (mild cramping), Yes normal movement, Yes coping well w/o pain meds, No complaints, No abdominal pain, No vaginal bleeding, No leaking fluid, No headache, No blurred vision, No scotomata, No fever, No chills, No shortness of breath, No new complaints Objective Nursing Documentation Review Nursing data: The data set between the solid lines has been imported from nursing documentation. Any exceptions have been noted below under Provider comments. __ ROM date: ROM time: __ Provider comments on imported nursing data: [] General VS: Last Documented: Result Date Time Pulse Ox 98 03/18 1458 Pulse 64 03/18 1458 B/P Mean 110.0 03/18 1432 B/P 142/87 03/18 1432 Temp 98.9 03/18 1432 Resp 19 03/18 0749 Vital Signs Date Temp Pulse Resp B/P B/P Mean Pulse Ox FiO2 03/18 98.4-98.9 52-98 16-20 132-144/63-95 91.0-115.0 88-100 PATIENT WEIGHT: Weight (lb): 218 Weight (oz): Weight (kg): 98.883 Objective Cervical/ exam: Dilatation (cm): 1 Pelvis exam: Clinically adequate for this fetus: yes Uterine activity: Monitor: toco Frequency (description): regular Frequency (minutes): 3 Procedures: vaginal exam, attempted Cook balloon placement unsuccessful FHR Evaluation Baby A: Baby A baseline: 130 bpm Baby A variability: moderate 6-25 bpm Result Findings/Data: Laboratory Tests: 03/18 03/18 03/18 0044 0018 0013 Chemistry Creatinine (0.5 - 1.0 mg/dL) 0.5 AST (15 - 37 units/L) 64 H ALT (12 - 78 units/L) 21 Lactate Dehydrogenase (81 - 234 units/L) 554 H Hematology WBC (6.5 - 12.3 K/mm3) 10.5 RBC (3.51 - 4.69 M/mm3) 4.99 H Hgb (10.1 - 13.8 g/dL) 13.1 Hct (32.5 - 41.8 %) 39.2 MCV (84.6 - 96.6 fL) 78.6 L MCH (27.3 - 33.9 pg) 26.3 L MCHC (32.0 - 34.2 gm/dL) 33.4 RDW (12.2 - 16.3 %) 15.6 Plt Count (134 - 363 K/mm3) 244 MPV (9.2 - 12.7 fL) 12.1 Neut % (Auto) (57.9 - 77.3 %) 61.3 Lymph % (Auto) (14.5 - 29.7 %) 28.9 Summers % (Auto) (3.6 - 10.2 %) 8.0 Eos % (Auto) (0.0 - 3.0 %) 1.0 Baso % (Auto) (0.1 - 0.9 %) 0.3 Neut # (Auto) (K/mm3) 6.4 Lymph # (Auto) (K/mm3) 3.0 Summers # (Auto) (K/mm3) 0.8 Eos # (Auto) (K/mm3) 0.11 Baso # (Auto) (K/mm3) 0.0 Serology Treponema pallidum Ab (NONREACTIVE) NONREACTIVE Hep Bs Antigen (NONREACTIVE) NONREACTIVE Hepatitis C Antibody (NONREACTIVE) NONREACTIVE Hep C Ab Signal/Cutoff (<0.80) <0.02 HIV 1 2 Antibody (NONREACTIVE) NONREACTIVE SARS-CoV-2 Ag (Rapid) (NEGATIVE) NEGATIVE Urines Ur Random Creatinine (mg/dL) 12.1 U Random Total Protein (mg/dL) 8.9 Protein/Creatinin Ratio (<200 mg/gcrea) 735.5 H Diagnosis, Assessment Plan Problem List/A P: 1. Hypertension affecting 2. Pre-eclampsia superimposed on chronic hypertension 3. 37 or more completed weeks of gestation Assessment: normal FHR pattern, latent phase labor, stable, doing well, pre- eclampsia Plan: anticipate vag delivery, continue labor induction, epidural anesthesia ( prn), anesthesia consult at 2037 RPT #[id number] END OF REPORT [facility] 2021-03-18 11:40:00 [facility] ([facility]) OB Intrapart Prog Note REPORT#:[id number] REPORT STATUS: Signed DATE:03/18/21 TIME: 1140 PATIENT: JENNIFER SILVER UNIT #: [id number] ROOM/BED: [address] : [birth year] AGE: 25 SEX: F ATTEND: Laura Barnes MD ADM AUTHOR: Laura Barnes MD * ALL edits or amendments must be made on the electronic/computer document * Subjective Subjective Admission EGA (wks/days): 37 weeks (4d) Patient reports: Patient reports: Yes normal movement, No complaints, No abdominal pain, No vaginal bleeding, No leaking fluid, No contractions, No headache, No blurred vision, No scotomata, No fever, No chills, No shortness of breath, No new complaints Objective Nursing Documentation Review Nursing data: The data set between the solid lines has been imported from nursing documentation. Any exceptions have been noted below under Provider comments. __ ROM date: ROM time: __ Provider comments on imported nursing data: [] General VS: Last Documented: Result Date Time Pulse Ox 98 03/18 1050 Pulse 76 03/18 1050 B/P Mean 108.0 03/18 0749 B/P 144/85 03/18 0749 Temp 98.4 03/18 0749 Resp 19 03/18 0749 Vital Signs Date Temp Pulse Resp B/P B/P Mean Pulse Ox FiO2 03/18 98.4-98.9 52-98 16-20 132-144/63-85 91.0-108.0 88-100 PATIENT WEIGHT: Weight (lb): 218 Weight (oz): Weight (kg): 98.883 Objective Cervical/ exam: Dilatation (cm): 0 - closed Pelvis exam: Clinically adequate for this fetus: yes Uterine activity: Monitor: toco Frequency (description): irritability Current oxytocin: Indication: induction (s/p cytotec x 2) FHR Evaluation Baby A: Baby A baseline: 130 bpm Baby A variability: moderate 6-25 bpm Baby A accelerations: 15 X 15 Baby A decelerations: none Baby A FHR category: category 1 Result Findings/Data: Laboratory Tests: 03/18 03/18 03/18 0044 0018 0013 Chemistry Creatinine (0.5 - 1.0 mg/dL) 0.5 AST (15 - 37 units/L) 64 H ALT (12 - 78 units/L) 21 Lactate Dehydrogenase (81 - 234 units/L) 554 H Hematology WBC (6.5 - 12.3 K/mm3) 10.5 RBC (3.51 - 4.69 M/mm3) 4.99 H Hgb (10.1 - 13.8 g/dL) 13.1 Hct (32.5 - 41.8 %) 39.2 MCV (84.6 - 96.6 fL) 78.6 L MCH (27.3 - 33.9 pg) 26.3 L MCHC (32.0 - 34.2 gm/dL) 33.4 RDW (12.2 - 16.3 %) 15.6 Plt Count (134 - 363 K/mm3) 244 MPV (9.2 - 12.7 fL) 12.1 Neut % (Auto) (57.9 - 77.3 %) 61.3 Lymph % (Auto) (14.5 - 29.7 %) 28.9 Summers % (Auto) (3.6 - 10.2 %) 8.0 Eos % (Auto) (0.0 - 3.0 %) 1.0 Baso % (Auto) (0.1 - 0.9 %) 0.3 Neut # (Auto) (K/mm3) 6.4 Lymph # (Auto) (K/mm3) 3.0 Summers # (Auto) (K/mm3) 0.8 Eos # (Auto) (K/mm3) 0.11 Baso # (Auto) (K/mm3) 0.0 Serology Treponema pallidum Ab (NONREACTIVE) NONREACTIVE Hep Bs Antigen (NONREACTIVE) NONREACTIVE Hepatitis C Antibody (NONREACTIVE) NONREACTIVE Hep C Ab Signal/Cutoff (<0.80) <0.02 HIV 1 2 Antibody (NONREACTIVE) NONREACTIVE SARS-CoV-2 Ag (Rapid) (NEGATIVE) NEGATIVE Urines Ur Random Creatinine (mg/dL) 12.1 U Random Total Protein (mg/dL) 8.9 Protein/Creatinin Ratio (<200 mg/gcrea) 735.5 H Diagnosis, Assessment Plan Problem List/A P: 1. 37 or more completed weeks of gestation 2. Pre-eclampsia superimposed on chronic hypertension 3. Hypertension affecting Assessment: normal FHR pattern, latent phase labor, stable, doing well, pre- eclampsia Plan: anticipate vag delivery, continue labor induction, epidural anesthesia ( prn), anesthesia consult at 2036 RPT #[id number] END OF REPORT [facility] 2021-03-18 01:30:00 [facility] ([facility]) OB Admission / H P REPORT#:[id number] REPORT STATUS: Signed DATE:03/18/21 TIME: 0130 PATIENT: JENNIFER SILVER UNIT #: [id number] ROOM/BED: : 93 AGE: 25 SEX: F ATTEND: Laura Barnes MD ADM DT: AUTHOR: Nelia Lundberg MD * ALL edits or amendments must be made on the electronic/computer document * OB History Nursing Documentation Review Nursing data: The data set between the solid lines has been imported from nursing documentation. Any exceptions have been noted below under Provider comments. Current data Steroids prior to arrival: ROM date: ROM time: EDC date: 04/04/21 Gestational age (labor triage): Post hemorrhage risk score: Low Risk for Hemorrhage. Prior history : 1 Para: 0 Term: : Abortions spontaneous: Abortions induced: Living children: Ectopic: Stillbirths: Live births: deaths: Number of previous C/S: Reported maternal labs/data Blood type: O Rh type: Positive Rubella: Hepatitis B: Negative HIV exposure test: Negative VDRL: Group B beta strep: Negative Rho(D) immune globulin this preg: Monitor mode - UA: Feeding preference: Provider comments on imported nursing data: [] HPI: Jennifer is a 25 y/o @37w4d admitted for IOL secondary to superimposed pre -eclampsia with severe features. She has had cHTN for 2 years and prior to was on metoprolol. During has been on labetelol 100mg BID with purpoted good control per pt (no records available). She says Dr. Garcia has been happy with growth scans. Pt staes she had worsening of her HTN last week and was sent to [facility] where BPs were normal and labs were normal inc prot: creat ratio of 200mg. This evening at home her BP was 153/93 and then 1 hour later 180/100. Pt had mild PERDUE that she takes tylenol for and it resolved. No RUQ pain, scotoma. In MAC, BPs 180s/100 as well. She was given nifedpeine po x1 without response and thus started on mag. She has not needed any more meds since then. history: : 1 Term: 0 : 0 Abortus: 0 Living children: 0 Previous : none Current : Admission EGA (weeks) 37 Admission EGA (days) 3 Past History Additional Medical History: cHTN x2 years on metoprolol; seizure as a child Additional Surgical History: heart cath secondary to abnormal stress test 2019 Additional Family History noncontributary to current problem Alcohol Use Denies EtOH use Drug Use Denies recreational drugs Smoking status: Smoking status for patients 13 years old or older: Never Smoker Medications: Home Medications: LABETALOL (TRANDATE) 100 MG PO BID ASPIRIN 162 MG PO DAILY PNV WITH CA/IRON/FA/DHA (PRENATE ESSENTIAL) 1 CAP PO DAILY IRON/FA/B12/C/DOCUSATE SODIUM (FERRALET 90) 1 TAB PO DAILY Allergies: Coded Allergies: No Known Allergies (03/11/21) Objective General VS: Last Documented: Result Date Time Pulse Ox 100 03/18 0558 Pulse 56 03/18 0558 B/P Mean 97.0 03/18 0553 B/P 132/78 03/18 0553 Resp 16 03/18 0553 Temp 98.9 03/18 0232 Vital Signs Date Temp Pulse Resp B/P B/P Mean Pulse Ox FiO2 03/18 98.9 52-98 16-20 132-141/63-81 91.0-104.0 88-100 PATIENT WEIGHT: Weight (lb): 218 Weight (oz): Weight (kg): 98.883 Physical Exam Uterine activity: Monitor: toco Frequency (description): irritability Pelvic exam: Pelvis clinically adequate: maybe Membranes: Membranes: Intact Baby A: Baby A baseline: 130 bpm Baby A variability: moderate 6-25 bpm Result Findings/Data: Laboratory Tests: 03/18 03/18 03/18 0044 0018 0013 Chemistry Creatinine (0.5 - 1.0 mg/dL) 0.5 AST (15 - 37 units/L) 64 H ALT (12 - 78 units/L) 21 Lactate Dehydrogenase (81 - 234 units/L) 554 H Hematology WBC (6.5 - 12.3 K/mm3) 10.5 RBC (3.51 - 4.69 M/mm3) 4.99 H Hgb (10.1 - 13.8 g/dL) 13.1 Hct (32.5 - 41.8 %) 39.2 MCV (84.6 - 96.6 fL) 78.6 L MCH (27.3 - 33.9 pg) 26.3 L MCHC (32.0 - 34.2 gm/dL) 33.4 RDW (12.2 - 16.3 %) 15.6 Plt Count (134 - 363 K/mm3) 244 MPV (9.2 - 12.7 fL) 12.1 Neut % (Auto) (57.9 - 77.3 %) 61.3 Lymph % (Auto) (14.5 - 29.7 %) 28.9 Summers % (Auto) (3.6 - 10.2 %) 8.0 Eos % (Auto) (0.0 - 3.0 %) 1.0 Baso % (Auto) (0.1 - 0.9 %) 0.3 Neut # (Auto) (K/mm3) 6.4 Lymph # (Auto) (K/mm3) 3.0 Summers # (Auto) (K/mm3) 0.8 Eos # (Auto) (K/mm3) 0.11 Baso # (Auto) (K/mm3) 0.0 Serology Treponema pallidum Ab (NONREACTIVE) NONREACTIVE Hep Bs Antigen (NONREACTIVE) NONREACTIVE Hepatitis C Antibody (NONREACTIVE) NONREACTIVE Hep C Ab Signal/Cutoff (<0.80) <0.02 HIV 1 2 Antibody (NONREACTIVE) NONREACTIVE SARS-CoV-2 Ag (Rapid) (NEGATIVE) NEGATIVE Urines Ur Random Creatinine (mg/dL) 12.1 U Random Total Protein (mg/dL) 8.9 Protein/Creatinin Ratio (<200 mg/gcrea) 735.5 H Diagnosis, Assessment Plan Diagnosis, Assessment Plan Free Text A P: 25 y/o @37w4d admitted for superimposed preE with severe features -IOL: cytotec x4 then pit -sPreE: continue home labetelol; lft elevated. Cont Mag. -FHT cat I -GBS neg per pt at 0646 RPT #:[id number] END OF REPORT [facility] 2021-03-14 10:44:00 [facility] ([facility]) OB Admission / H P REPORT#:[id number] REPORT STATUS: Signed DATE:03/14/21 TIME: 1044 PATIENT: JENNIFER SILVER UNIT #: [id number] ROOM/BED: : 93 AGE: 25 SEX: F ATTEND: Laura Barnes MD ADM AUTHOR: Janae Richard * ALL edits or amendments must be made on the electronic/computer document * OB History Chief complaint: elevated blood pressure, scheduled induction history: : 1 Term: 0 : 0 Abortus: 0 Living children: 0 Current : Best EDC: 04/03/21 Admission EGA (weeks) 37 Admission EGA (days) 1 EDC based on: ultrasound, 1st trimester Conditions of : HTN - chronic, obesity Labs: Blood type: O Rh: positive Rubella: immune Hepatitis B: negative HIV: negative STD: negative Syphilis: currently negative GBS: negative Procedures: biophysical profile, ultrasound, genetic testing, non stress test, nuchal translucency scan Genetic testing: low risk NIPT Past History Past Medical History: Reports: Hypertension. Additional Surgical History: cardiac cath Family History Reports: Hypertension, Thyroid disorder. Alcohol Use Denies EtOH use Drug Use Denies recreational drugs Smoking status: Smoking status for patients 13 years old or older: Never Smoker Medications: Home Medications: LABETALOL (TRANDATE) 100 MG PO BID ASPIRIN 162 MG PO DAILY PNV WITH CA/IRON/FA/DHA (PRENATE ESSENTIAL) 1 CAP PO DAILY IRON/FA/B12/C/DOCUSATE SODIUM (FERRALET 90) 1 TAB PO DAILY Allergies: Coded Allergies: No Known Allergies (03/11/21) Review of Systems : Reports: . All systems rev neg: except as marked Objective General VS: PATIENT WEIGHT: Weight (lb): Weight (oz): Weight (kg): Physical Exam HEENT: normocephalic w/o injury, pupils equal Cardiac: regular rate and rhythm Lungs: clear to auscultation Breasts: deferred Neuro: Exam: alert, oriented x3, normal speech Abdomen: gravid, soft, no abnormal tenderness, no guarding, no rebound tenderness, normoactive bowel sounds Musculoskeletal: normal inspection Genitourinary: no bladder distention, no flank pain, no reaves Uterine activity: Monitor: toco Frequency (description): none Pelvic exam: Pelvis clinically adequate: yes, inlet appears appropriate, pubic bone config appropr, no midpelvic contraction Vulvar lesions: none, no evidence herpetic les, no evidence of other STD Vagina: non-septated, w/o apparent lesions Uterus size in weeks: 40 Exam: soft, non-tender, approp size for gest age Cervical/ exam: Est wt (gms): 3000 presentation: cephalic Membranes: Membranes: Intact Result Results: labs reviewed, vital signs stable Diagnosis, Assessment Plan Diagnosis, Assessment Plan Problem List/A P: 1. Hypertension affecting Assessment/Impression: HTN with superimposed GHTN Plan: admit to inpatient, scheduled induction Reason-sched induction: chronic hypertension Consultation(s): Consultation performed: anesthesia Plan discussed with: patient, spouse/partner at 1106 at 0059 RPT #:[id number] END OF REPORT [facility] 2019-12-05 09:13:00 [id number] [place] [address] PATIENT NAME: JENNIFER SILVER ADMIT DATE: 12/01/19 ACCOUNT NO: [id number] ROOM NO: AGE: 24 REPORT TYPE: OPERATIVE REPORT SEX: F ADMITTING PHYSICIAN: ATTENDING PHYSICIAN:Maury Trejo MD OPERATION DATE: 12/01/2019 PROCEDURE PERFORMED: Selective coronary angiogram. INDICATIONS: Unstable angina with abnormal stress test. ACCESS: Right radial artery, 6-South Korean closed with TR band. INFORMATICS SPEC: Caren Henson MD, primary. DECORATING INSPECTOR: Maury Trejo MD ANESTHESIA: SEDATION TIME: A total sedation time was 50 minutes. DESCRIPTION OF PROCEDURE: After risks, benefits, and alternatives were explained to the patient, the patient agreed with the procedure and signed informed consent. The patient was brought back to the cardiac catheterization laboratory, prepped and draped in the usual sterile fashion. I then used fentanyl and Versed in incremental doses to achieve adequate amount of sedation. Then, an access right radial artery using a pediatric micropuncture kit and inserted 6-[place] slender sheath. Then, we took a 5-[place] Udell catheter over the J-wire into the aortic root and engaged the left main coronary artery, took standard views and then engaged the right coronary artery and took standard views and then removed the catheter and the wire and the sheath outside the body and we closed the access with a TR band with good hemostasis and no complications. FINDINGS: 1. Left main large and normal. 2. LAD normal. 3. Left circumflex and OMs are normal. 4. RCA is normal. The patient has codominant circulation. IMPRESSION: Normal coronary arteries and a falsely positive stress test. RECOMMENDATIONS: 1. Lifestyle modification and exercise. 2. Discharge home once discharge criteria met. Dictated By: Maury Trejo MD PATIENT NAME: JENNIFER SILVER WT: OP:MARIAJOSE/EDILMA/ELIU Conf#: [id number]/DID#: [id number] Authenticated by Maury Trejo MD On 12/05/2019 06:36:17 PM at 1836 PATIENT NAME: JENNIFER SILVER [facility]
[2024-03-04 22:22] LABS: Absolute Eosinophils 0.2 K/uL (0-0.5); Absolute Lymphocytes (CBC) 3.8 K/uL (0.7-4.9); Absolute Monocytes 0.6 K/uL (0.1-1.3); Absolute Neutrophil 4.5 K/uL (1.8-8.0); Basophils % 0.5 % (0-1.3); Eosinophils % 2.7 % (0-4.4); Hematocrit 45.1 % (36.0-45.0); Hemoglobin 15.2 g/dL (12.0-15.0); Lymphocytes % 41.3 % (15.3-44.8); MCH 25.9 pg (27.0-35.0); MCHC 33.7 g/dL (32.0-36.0); MCV 76.8 fL (80-100); MPV 8.5 fL (7.6-11.3); Monocytes % 6.9 % (3.3-12.3); Neutrophils % 48.6 % (41.7-73.7); Nucleated Red Blood Cells % 0.1 % (0-0); Platelets 272 thou/uL (152-406); RBC Red Blood Cell Count 5.88 M/uL (3.86-4.86); Red Cell Distribution Width 14.5 % (12.1-15.2)
[2024-03-04 22:25] LABS: Specific Gravity 1.015 (1.005-1.030); Urine Bilirubin NEGATIVE (Negative); Urine Blood Negative (Negative); Urine Clarity Clear (Clear); Urine Color Light-Yellow (Yellow); Urine Glucose NEGATIVE (Negative); Urine Ketones NEGATIVE (Negative); Urine Microscopic Reflex YN NO UMIC; Urine Nitrite NEGATIVE (Negative); Urine Protein NEGATIVE (Negative); Urine Urobilinogen Normal (Normal)
[2024-03-04 22:44] LABS: Troponin High Sensitivity 19.7 pg/mL (<58.9)
[2024-03-04] MEDS ORDERED: KETOROLAC 30 MG/ML INJ ONE (23:12)
[2024-03-04] MEDS ORDERED: NA CHLORIDE 0.9% 1,000 ML ONE (23:12)
[2024-03-04 23:31] LABS: Barbiturates NEGATIVE (NEGATIVE); Benzodiazepines NEGATIVE (NEGATIVE); Cocaine NEGATIVE (NEGATIVE); METHAMPHETAM NEGATIVE (NEGATIVE); Methadone NEGATIVE (NEGATIVE); Opiates NEGATIVE (NEGATIVE); Phencyclidine NEGATIVE (NEGATIVE); THC Cannibis NEGATIVE (NEGATIVE)
[2024-03-04] MEDS ORDERED: POTASSIUM 25 MEQ EFFERV TAB ONE (23:45)
--- NOTE | 2024-03-04 23:47 | RAD REPORT ---
EXAM DESCRIPTION: XR CHEST 1 VIEW CLINICAL HISTORY: Chest pain. COMPARISON: XR Chest 1 view 03/06/2022 (Report only) FINDINGS: Cardiac silhouette is within normal limits. There is no focal parenchymal or pleural disease. There i s no acute osseous process visualized. IMPRESSION: No evidence of acute cardiopulmonary disease. Electronically signed by: Juan Barillas MD 03/04/2024 11:41 PM [facility] Due to temporary technical issues with the PACS/DinnerTime reporting system, reports are being tim d by the in-house radiologist without review as a courtesy to ensure prompt reporting the interpreting radiologist is fully responsible for the content of the report. Transcribed Date/Time: 03/04/2024 11:47 PM
--- NOTE | 2024-03-05 01:31 | ER ---
Nurse's Notes [facility] Name: Jennifer Tyler Age: 28 yrs Sex: Female : 1995 Arrival Date: 03/04/2024 Time: 21:04 Bed 4 Private MD: Diagnosis: Chest pain, unspecified Presentation: 03/04 21:22 Chief complaint: Patient states: i don't know if im having anxiety or im stressed but i lg3 have had CP for 2 days and high BP a few times. Coronavirus screen: Client denies travel out of the [place] in the last 14 days. At this time, the client does not indicate any symptoms associated with coronavirus-19. Ebola Screen: No symptoms or risks identified at this time. Initial Sepsis Screen: Does the patient meet any 2 criteria? No. Patient's initial sepsis screen is negative. Does the patient have a suspected source of infection? No. Patient's initial sepsis screen is negative. Risk Assessment: Do you want to hurt yourself or someone else? Patient reports no desire to harm self or others. Onset of symptoms was March 02, 2024. 21:22 Method Of Arrival: Ambulatory lg3 21:22 Acuity: TOMÁS 3 lg3 Triage Assessment: 21:25 General: Appears in no apparent distress. comfortable, Behavior is cooperative, lg3 anxious. Pain: Complains of pain in chest Pain does not radiate. Pain currently is 4 out of 10 on a pain scale. Quality of pain is described as pressure. EENT: No deficits noted. No signs and/or symptoms were reported regarding the EENT system. Neuro: No deficits noted. Mendes Agitation-Sedation Scale (RASS): 0 - Alert and Calm Level of Consciousness is awake, alert, obeys commands, Oriented to person, place, time, situation. Cardiovascular: Reports chest pain, Heart tones S1 S2 present Capillary refill < 3 seconds Clubbing of nail beds is absent JVD is absent Patient's skin is warm and dry. Respiratory: No deficits noted. Airway is patent Respiratory effort is even, unlabored, Respiratory pattern is regular, symmetrical. GI: No deficits noted. No signs and/or symptoms were reported involving the gastrointestinal system. : No deficits noted. No signs and/or symptoms were reported regarding the genitourinary system. Derm: No deficits noted. No signs and/or symptoms reported regarding the dermatologic system. Skin is intact, is healthy with good turgor, Skin is dry, Skin is normal, Skin temperature is warm. Musculoskeletal: No deficits noted. No signs and/or symptoms reported regarding the musculoskeletal system. Circulation, motion, and sensation intact. Range of motion: intact in all extremities. 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 - Infectious Disease History:: Denies. - Social history:: Smoking status: Patient denies any tobacco usage or history of. Patient/guardian denies using alcohol, street drugs. Screenin:28 [facility] ED Fall Risk Assessment (Adult) History of falling in the last 3 months, lg3 including since admission No falls in past 3 months (0 pts) Confusion or Disorientation No (0 pts) Intoxicated or Sedated No (0 pts) Impaired Gait No (0 pts) Mobility Assist Device Used No (0 pt) Altered Elimination No (0 pt) Score/Fall Risk Level 0 - 2 = Low Risk Oriented to surroundings, Maintained a safe environment, Educated pt \T\ family on fall prevention, incl call for assistance when getting out of bed, Assessed \T\ reinforced patient's understanding of fall precautions. Abuse screen: Denies threats or abuse. Denies injuries from another. Nutritional screening: No deficits noted. Tuberculosis screening: No symptoms or risk factors identified. Assessment: 21:28 General: see triage assessment. Pain: Pain began 2-3 days ago. lg3 23:01 Reassessment: Patient appears in no apparent distress at this time. Patient and/or bm8 family updated on plan of care and expected duration. Pain level reassessed. Patient is alert, oriented x 3, equal unlabored respirations, skin warm/dry/pink. General: Appears in no apparent distress. comfortable, Behavior is calm, cooperative, appropriate for age. Pain: Complains of pain in chest Pain currently is 3 out of 10 on a pain scale. Pain: Quality of pain is described as heavy, pressure. Neuro: No deficits noted. Level of Consciousness is awake, alert, obeys commands, Oriented to person, place, time, situation, Appropriate for age. Cardiovascular: No deficits noted. Reports chest pain, Heart tones S1 S2 present Capillary refill < 3 seconds in bilateral fingers Patient's skin is warm and dry. Rhythm is sinus bradycardia. Respiratory: No deficits noted. Airway is patent Respiratory effort is even, unlabored, Respiratory pattern is regular, symmetrical, Breath sounds are clear bilaterally. GI: No deficits noted. No signs and/or symptoms were reported involving the gastrointestinal system. : No deficits noted. No signs and/or symptoms were reported regarding the genitourinary system. EENT: No deficits noted. No signs and/or symptoms were reported regarding the EENT system. Derm: No deficits noted. No signs and/or symptoms reported regarding the dermatologic system. Musculoskeletal: No deficits noted. No signs and/or symptoms reported regarding the musculoskeletal system. 03/05 01:26 Reassessment: Patient appears in no apparent distress at this time. Patient and/or bm8 family updated on plan of care and expected duration. Pain level reassessed. Patient is alert, oriented x 3, equal unlabored respirations, skin warm/dry/pink. Patient denies pain at this time. Patient states feeling better. Patient states symptoms have improved. Vital Signs: 03/04 21:22 BP 139 / 95; Pulse 52; Resp 17 S; Temp 98.3; Pulse Ox 99% on R/A; Weight 97.52 kg (R); lg3 Height 4 ft. 10 in. (R); Pain 4/; 23:01 BP 131 / 88; Pulse 55; Resp 17; Temp 98.3; Pulse Ox 100% ; Pain 3/10; bm8 03/05 01:26 BP 107 / 74; Pulse 55; Resp 17; Temp 98.3; Pulse Ox 98% ; Pain 0/10; bm8 03/04 21:22 Body Mass Index 44.93 (97.52 kg, 147.32 cm) lg3 03/04 21:22 Pain Scale: Adult lg3 23:01 Pain Scale: Adult bm8 03/05 01:26 Pain Scale: Adult bm8 Mary Coma Score: 03/04 23:01 Eye Response: spontaneous(4). Motor Response: obeys commands(6). Verbal Response: bm8 oriented(5). Total: 15. 11 01:26 Eye Response: spontaneous(4). Motor Response: obeys commands(6). Verbal Response: bm8 oriented(5). Total: 15. ED Course: 03/04 21:06 Patient arrived in ED. ra3 21:25 Triage completed. lg3 21:25 Arm band placed on right wrist. lg3 21:28 Patient taken to lobby, ambulatory, steady gait. lg3 21:28 Patient has correct armband on for positive identification. lg3 21:28 Patient maintains SpO2 saturation greater than 95% on room air. lg3 22:06 Mello Whipple PA is PHCP. cp 22:06 Hi Chauhan MD is Attending Physician. cp 22:13 Basic Metabolic Panel Sent. ty 22:13 CBC with Diff Sent. ty 22:13 Troponin HS Sent. ty 22:13 Test, Urine Sent. ty 22:13 Urinalysis w/ reflexes Sent. ty 22:13 Inserted saline lock: 20 gauge in left antecubital area, using aseptic technique. Blood ty collected. Flushed with 10 mL NS. 22:14 Initial lab(s) drawn, by me, sent to lab. Urine collected: clean catch specimen, clear, ty EKG done. 22:42 XRAY Chest (1 view) In Process Unspecified. EDMS 22:49 Jose Banuelos, RN is Primary Nurse. bm8 23:01 Client placed on continuous cardiac and pulse oximetry monitoring. NIBP monitoring bm8 applied. surveillance monitor on. Pulse ox on. NIBP on. Door closed. Noise minimized. Warm blanket given. Pillow given. Verbal reassurance given. Head of bed elevated. 23:01 No provider procedures requiring assistance completed. bm8 03/05 01:26 Provided Education on: post er care. bm8 01:44 IV discontinued, intact, bleeding controlled, No redness/swelling at site. Pressure bm8 dressing applied. Administered Medications: 03/04 23:16 Drug: NS 0.9% IV 1000 ml IV at 1000 ml once; to be given as a bolus over 60 minutes jj7 Route: IV; Rate: 1000 ml; Site: left antecubital; 03/05 01:45 Follow up: Response: No adverse reaction; IV Status: Completed infusion; IV Intake: bm8 1000ml 03/04 23:17 Drug: Ketorolac IVP 15 mg IVP once Route: IVP; Site: left antecubital; jj7 03/05 01:03 Follow up: Response: No adverse reaction bm8 03/04 23:47 Drug: Potassium PO Effervescent Tablet 50 mEq PO once; dissolve in 4 ounces of water or jj7 juice Route: PO; 03/05 01:03 Follow up: Response: No adverse reaction bm8 Medication: 03/04 23:01 VIS not applicable for this client. bm8 Intake: 03/05 01:45 IV: 1000ml; Total: 1000ml. bm8 Outcome: 01:30 Discharge ordered by MD. cp 01:44 Discharged to home ambulatory, bm8 01:44 Condition: stable 01:44 Discharge instructions given to patient, family, Instructed on discharge instructions, follow up and referral plans. no drinking with medication, no driving heavy equipment, medication usage, safety practices, Demonstrated understanding of instructions, follow-up care, medications, 01:45 Patient left the ED. bm8 Signatures: Dispatcher [employer] EDMS Mello Whipple PA PA cp Able, Lacie RN RN lg3 Ananth Lang RN RN jj7 Jaleesa Regalado Tylor ty McDonald, Brad RN RN bm8
--- NOTE | 2024-03-05 01:31 | EDPHYS ---
Physician Documentation [facility] Name: Jennifer Tyler Age: 28 yrs Sex: Female : 1995 Arrival Date: 03/04/2024 Time: 21:04 Bed 4 Private MD: ED Physician Hi Chauhan HPI: 03/04 21:35 This 28 yrs old Female presents to ER via Ambulatory with complaints of Chest cp Pain - x2days. 21:35 The patient or guardian reports chest pain that is located primarily in the anterior cp chest wall. The pain does not radiate. 21:35 Associated signs and symptoms: Pertinent negatives: abdominal pain, cough, lower cp extremity pain, lower extremity swelling, palpitations, shortness of breath, syncope, vomiting. The chest pain is described as a heaviness, a pressure. Duration: The patient or guardian reports a single episode, that is still ongoing, and unchanged. Severity of pain: in the emergency department the pain is unchanged despite home interventions. 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 - Infectious Disease History:: Denies. - Social history:: Smoking status: Patient denies any tobacco usage or history of. Patient/guardian denies using alcohol, street drugs. ROS: 21:40 Constitutional: Negative for body aches, chills, fever, poor PO intake, cp 21:40 Cardiovascular: Positive for chest pain, Negative for edema, palpitations, cp 21:40 Respiratory: Negative for cough, shortness of breath, wheezing, 21:40 Abdomen/GI: Negative for abdominal pain, vomiting, diarrhea, constipation, 21:40 Eyes: Negative for injury, pain, redness, and discharge, cp 21:40 ENT: Negative for drainage from ear(s), ear pain, sore throat, difficulty swallowing, difficulty handling secretions, 21:40 Back: Negative for pain at rest, pain with movement, 21:40 Neuro: Negative for altered mental status, dizziness, headache, numbness, syncope, near syncope, weakness, 21:40 All other systems are negative, cp Exam: 21:45 Constitutional: The patient appears in no acute distress, alert, awake, cp non-diaphoretic, non-toxic, well developed, well nourished, overweight 21:45 Head/Face: Normocephalic, atraumatic. cp 21:45 Eyes: Periorbital structures: appear normal, Conjunctiva: normal, no exudate, no injection, Sclera: no appreciated abnormality, Lids and lashes: appear normal, bilaterally, 21:45 ENT: External ear(s): are unremarkable, Nose: is normal, Mouth: Lips: moist, Oral mucosa: pink and intact, moist, Posterior pharynx: is normal, airway is patent, no erythema, no exudate, 21:45 Chest/axilla: Inspection: normal, 21:45 Cardiovascular: Rate: bradycardic, Rhythm: regular, Edema: is not appreciated, JVD: is not appreciated, 21:45 Respiratory: the patient does not display signs of respiratory distress, Respirations: normal, no use of accessory muscles, no retractions, labored breathing, is not present, Breath sounds: are clear throughout, no decreased breath sounds, no stridor, no wheezing, 21:45 Abdomen/GI: Inspection: abdomen appears normal, Palpation: abdomen is soft and non-tender, in all quadrants, 21:45 Back: pain, is absent, ROM is normal, 21:45 Neuro: Orientation: to person, place \T\ time. Mentation: is normal, Motor: moves all fours, strength is normal, Sensation: is normal, 21:58 ECG was reviewed by the Attending Physician. cp Vital Signs: 21:22 BP 139 / 95; Pulse 52; Resp 17 S; Temp 98.3; Pulse Ox 99% on R/A; Weight 97.52 kg (R); lg3 Height 4 ft. 10 in. (R); Pain 4/; 23:01 BP 131 / 88; Pulse 55; Resp 17; Temp 98.3; Pulse Ox 100% ; Pain 3/10; bm8 03/05 01:26 BP 107 / 74; Pulse 55; Resp 17; Temp 98.3; Pulse Ox 98% ; Pain 0/10; bm8 03/04 21:22 Body Mass Index 44.93 (97.52 kg, 147.32 cm) lg3 03/04 21:22 Pain Scale: Adult lg3 23:01 Pain Scale: Adult bm8 03/05 01:26 Pain Scale: Adult bm8 Mary Coma Score: 03/04 23:01 Eye Response: spontaneous(4). Motor Response: obeys commands(6). Verbal Response: bm8 oriented(5). Total: 15. 03/05 01:26 Eye Response: spontaneous(4). Motor Response: obeys commands(6). Verbal Response: bm8 oriented(5). Total: 15. MDM: 03/04 22:06 Medical Screening Exam initiated cp 03/05 01:30 Data reviewed: vital signs, nurses notes, lab test result(s), EKG, radiologic studies, cp plain films, and as a result, I will discharge patient. 01:30 Differential diagnosis: acute myocardial infarction, cholecystitis, Cholelithiasis cp costochondritis, pancreatitis, pericarditis, pleurisy, pneumonia, pneumothorax, pulmonary embolus. I considered the following discharge prescriptions or medication management in the emergency department Medications were administered in the Emergency Department. See MAR. Independent interpretation of the following test(s) in the Emergency Department EKG: See my EKG interpretation above. Care significantly affected by the following chronic conditions: Hypertension. Counseling: I had a detailed discussion with the patient and/or guardian regarding the historical points, exam findings, and any diagnostic results supporting the discharge/admit diagnosis, lab results, radiology results, the need for outpatient follow up, a mri manager, to return to the emergency department if symptoms worsen or persist or if there are any questions or concerns that arise at home. Response to treatment: the patient's symptoms have mildly improved after treatment, and as a result, I will discharge patient. Special discussion: Based on the patient's history, exam, and Dx evaluation, there is no indication for emergent intervention or inpatient Tx. It is understood by the patient/guardian that if the Sx's persist or worsen they need to return immediately for re-evaluation. 03/04 21:30 Order name: Basic Metabolic Panel; Complete Time: 23: lg3 03/04 21:30 Order name: CBC with Diff; Complete Time: 23:01 [facility] 03/04 21:30 Order name: Troponin HS; Complete Time: 23:01 [facility] 03/04 21:30 Order name: Test, Urine; Complete Time: 23:01 [facility] 03/04 21:30 Order name: Urinalysis w/ reflexes; Complete Time: 23:01 [facility] 03/04 22:16 Order name: UDS; Complete Time: 23:35 03/04 23:01 Order name: D-Dimer; Complete Time: 23:35 03/05 00:07 Order name: Troponin High Sensitivity; Complete Time: 01:30 03/04 21:30 Order name: XRAY Chest (1 view) [facility] 03/04 23:52 Interpretation: Report review. 03/04 21:30 Order name: Cardiac monitoring; Complete Time: 23:04 [facility] 03/04 21:30 Order name: EKG - Nurse/Tech; Complete Time: 22:13 [facility] 03/04 21:30 Order name: IV Saline Lock; Complete Time: 22:13 [facility] 03/04 21:30 Order name: Labs collected and sent; Complete Time: 22:13 [facility] 03/04 21:30 Order name: O2 Per Protocol; Complete Time: 22:13 [facility] 03/04 21:30 Order name: O2 Sat Monitoring; Complete Time: 22:13 3 EC/09 21:58 Rate is 49 beats/min. Rhythm is regular. AR interval is normal. QRS interval is normal. cp QT interval is normal. T waves are Inverted in leads III, aVR. Interpreted by me. Reviewed by me. Administered Medications: 23:16 Drug: NS 0.9% IV 1000 ml IV at 1000 ml once; to be given as a bolus over 60 minutes [id number] Route: IV; Rate: 1000 ml; Site: left antecubital; 03/05 01:45 Follow up: Response: No adverse reaction; IV Status: Completed infusion; IV Intake: bm8 1000ml 03/04 23:17 Drug: Ketorolac IVP 15 mg IVP once Route: IVP; Site: left antecubital; jj7 03/05 01:03 Follow up: Response: No adverse reaction bm8 03/04 23:47 Drug: Potassium PO Effervescent Tablet 50 mEq PO once; dissolve in 4 ounces of water or jj7 juice Route: PO; 03/05 01:03 Follow up: Response: No adverse reaction bm8 Disposition Summary: 03/05/24 01:30 Discharge Ordered Notes: Location: Home cp Problem: new cp Symptoms: have improved cp Condition: Stable cp Diagnosis - Chest pain, unspecified cp Followup: cp - With: Private Physician - When: 2 - 3 days - Reason: Recheck today's complaints Discharge Instructions: - Discharge Summary Sheet cp - Nonspecific Chest Pain, Adult cp - Aspirin and Your Heart cp Forms: - Medication Reconciliation Form cp - Antibiotic Education cp - Prescription Opioid Use cp - Patient Portal Instructions cp - Leadership Thank You Letter cp Addendum: 03/08/2024 17:17 I was immediately available for consultation during this patient's visit. I did not e c2 personally see the patient or discuss the patient with the RADHA. . Signatures: Dispatcher [employer] EDMS Mello Whipple PA PA cp Able, Lacie, RN RN lg3 Ananth Lang RN RN jj7 Hi Chauhan MD MD ec2 Jose Banuelos RN bm8 Corrections: (The following items were deleted from the chart) 03/04 21:31 21:31 BASIC METABOLIC PANEL+C.LAB.BRZ ordered. EDMS EDMS 21:31 21:31 CBC+H.LAB.BRZ ordered. EDMS EDMS 21:31 21:31 Troponin High Sensitivity+C.LAB.BRZ ordered. EDMS EDMS 21:31 21:31 Test, Urine+UC.LAB.BRZ ordered. EDMS EDMS 21:31 21:31 Urinalysis+U.LAB.BRZ ordered. EDMS EDMS 21:31 21:31 Chest Single View+RAD.RAD.BRZ ordered. EDMS EDMS 22:16 22:16 URINE DRUG SCREEN+UC.LAB.BRZ ordered. EDMS EDMS 23:01 23:01 D-DIMER+COAG.LAB.BRZ ordered. EDMS EDMS
[2024-03-05 02:56] VITALS: TEMP 98.3
[2024-03-05 02:59] VITALS: BP 107/74; O2SAT 98
--- NOTE | 2024-03-05 12:39 | EKG ---
Test Date: 2024-03-04 Test Time: 21:50:40 Event Promoter: MARTIN MEASUREMENT RESULTS: Intervals: Rate: 49 [place]: 120 QRSD: 94 QT: 430 QTc: 388 [place]: P: 7 [place]: 120 QRS: 23 T: 9 INTERPRETIVE STATEMENTS: Sinus bradycardia Otherwise normal ECG Compared to ECG 02/05/2022 14:54:35 Myocardial infarct finding no longer present Electronically Signed On 03-05-24 12:38:30 COMPLEX CASE MANAGER by Aldo Cristobal
== END 2024-03-05 01:45 | disposition home or self-care (01) ==
LOC: ER 21:04
DX: R07.9 Chest pain, unspecified (principal); I10 Essential (primary) hypertension
CPT/HCPCS: 96361; 93005; 85025; 80048; 36415; 81025; 85379; 81003; 84484 ×2; 80307; 71045; 96374; 99285; J7030